=== PATIENT | female | born 1965 | race African-American/Black ===

== ENCOUNTER 2017-03-04 11:42 | Emergency (ER) | payer MEDICAID ==
[~2017-03-04] VITALS: Ht 177.8 cm; Wt 135.2 kg
[2017-03-04] MEDS ORDERED: LEVOTHYROXINE200 MCG IV (11:58)
[2017-03-04] MEDS ORDERED: LISINOPRIL20 MG ORAL (11:58)
[2017-03-04] MEDS ORDERED: HYDROCHLOROTHIA25 MG ORAL (11:58)
[2017-03-04] MEDS ORDERED: SIMVASTATIN10 MG ORAL (11:58)
[2017-03-04] MEDS ORDERED: Metoclopramide 10mg/2ml Inj IVP ONE (12:30)
[2017-03-04] MEDS ORDERED: DiphenhydrAMINE 50mg/ml Inj IVP ONE (12:30)
[2017-03-04 12:47] LABS: BASOPHILS % (AUTO) 1.1 % (0.0-2.0); LYMPHOCYTES % (AUTO) 22.2 % (20.0-45.0); MEAN CORPUSCULAR HEMOGLOBIN 34.3 PG (27.0-31.0); MEAN CORPUSCULAR HGB CONC 31.7 G/DL (32.0-36.0); MEAN CORPUSCULAR VOLUME 108 FL (80-99); MEAN PLATELET VOLUME 6.3 FL (6.5-10.1); MONOCYTES % (AUTO) 8.6 % (1.0-10.0); NEUTROPHILS % (AUTO) 65.1 % (45.0-75.0); PLATELET COUNT 387 K/UL (150-450); RED BLOOD COUNT 3.74 M/UL (4.20-5.40); RED CELL DISTRIBUTION WIDTH 13.4 % (11.6-14.8); WHITE BLOOD COUNT 7.6 K/UL (4.8-10.8)
[2017-03-04 12:49] LABS: APPEARANCE,URINE SLIGHTLY CLOUDY; KETONES,URINE NEGATIVE (NEGATIVE); LEUKOCYTE ESTERASE ,URINE 3+ (NEGATIVE); NITRITE,URINE NEGATIVE (NEGATIVE); PH,URINE 6 (4.5-8.0); PROTEIN,URINE 1+ (NEGATIVE); UROBILINOGEN,URINE NORMAL MG/DL (0.0-1.0)
[2017-03-04 12:53] LABS: INR 1.1 (0.9-1.1); PROTHROMBIN TIME 10.8 SEC (9.30-11.50)
[2017-03-04 13:07] LABS: BACTERIA,URINE OCCASIONAL /HPF; SQUAMOUS EPITHELIAL CELL,UR FEW /LPF (NONE/OCC)
[2017-03-04 13:15] VITALS: BP 122/73
[2017-03-04 13:20] LABS: ALBUMIN/GLOBULIN RATIO 1.4 (1.0-2.7); CALCIUM 9.8 mg/dL (8.6-10.2); CREATININE 1.3 mg/dL (0.5-0.9); GLOMERULAR FILTRATION RATE 52.1 mL/min (>60); POTASSIUM 4.1 mEQ/L (3.4-4.9); TOTAL PROTEIN 8.2 g/dL (6.6-8.7)
--- NOTE | 2017-03-04 14:10 | Emergency Room Report ---
History of Present Illness General Chief Complaint: Abdominal Pain Source: Patient Present Illness HPI The patient presents with several complaints. Vaginal bleeding with h/o fibroids. R ankle pain with swelling and inability to ambulate. Easy bruising. Dyspnea she feels is related to pain. The most pressing issue is the ankle pain. She's been taking ibuprofen with little help. She was diagnosed with a fibroid recently. She apparently has a referral to this problem. She still has vaginal bleeding. She is no significant pain medication for this. He feels that she's also bruising. He denies any trauma to the ankle. No fevers, chills, cough, chest pain. No nausea vomiting or diarrhea. She was drinking alcohol last few nights. Allergies: Coded Allergies: No Known Allergies (Verified Allergy, Mild, 03/23/10) Patient History Past Medical History: see triage record Social History: Reports: alcohol use, smoking Social History Narrative at home Last Menstrual Period: Post Now: No : 2 Para: 2 Reviewed Nursing Documentation: PMH: Agreed, PSxH: Agreed Nursing Documentation-PMH Past Medical History: No Stated History Hx Hypertension: Yes - high lipid Hx Neurological Problems: Yes - weakness Review of Systems All Other Systems: negative except mentioned in HPI Physical Exam Vital Signs Date Time Temp Pulse Resp B/P Pulse Ox O2 Delivery O2 Flow Rate FiO2 03/04/17 11:49 97.3 86 22 128/85 94 Room Air Sp02 EP Interpretation: reviewed, abnormal - Interpreted as low by me however the patient smokes cigarettes General Appearance: well appearing, no apparent distress, GCS 15 Head: normocephalic Eyes: bilateral eye PERRL, bilateral eye normal inspection ENT: moist mucus membranes Neck: supple Respiratory: chest non-tender, lungs clear, normal breath sounds, no rhonchi Cardiovascular #1: regular rate, rhythm Cardiovascular #2: 2+ radial (L) Gastrointestinal: soft, no mass, tenderness - Suprapubic without guarding or rebound, overweight Musculoskeletal: back normal, normal range of motion, no calf tenderness, swelling - Right ankle with effusion, no erythema or warmth., tender - ankle Neurologic: alert, oriented x3, grossly normal Psychiatric: depressed affect Skin: normal inspection, warm/dry, other - No bruises appreciated Medical Decision Making Diagnostic Impression: Primary Impression: New onset gout Additional Impressions: UTI (urinary tract infection) Qualified Codes: N30.00 - Acute cystitis without hematuria h/o fibroid ER Course The patient presents with several complaints. She has low abdominal pain with history of a fibroid and also right ankle pain as being chief complaints needing evaluation at this time. Differential includes gout, pseudogout, other electrolyte abnormalities, anemia, coagulopathy. Exam is against this being a DVT. Patient be evaluated with labs, x-rays and treated with IV hydration and analgesics. Patient is sleeping after analgesics. Labs are significant for elevated uric acid. X-rays of the abdomen are unremarkable. EKG unremarkable. Findings were discussed with the patient and all questions answered. Patient requests crutches - provided. Patient stable for outpatient observation and treatment. Laboratory Tests Test 03/04/17 12:30 White Blood Count 7.6 K/UL (4.8-10.8) Red Blood Count 3.74 M/UL (4.20-5.40) L Hemoglobin 12.8 G/DL (12.0-16.0) Hematocrit 40.4 % (37.0-47.0) Mean Corpuscular Volume 108 FL (80-99) H Mean Corpuscular Hemoglobin 34.3 PG (27.0-31.0) H Mean Corpuscular Hemoglobin Concent 31.7 G/DL (32.0-36.0) L Red Cell Distribution Width 13.4 % (11.6-14.8) Platelet Count 387 K/UL (150-450) Mean Platelet Volume 6.3 FL (6.5-10.1) L Neutrophils (%) (Auto) 65.1 % (45.0-75.0) Lymphocytes (%) (Auto) 22.2 % (20.0-45.0) Monocytes (%) (Auto) 8.6 % (1.0-10.0) Eosinophils (%) (Auto) 3.0 % (0.0-3.0) Basophils (%) (Auto) 1.1 % (0.0-2.0) Erythrocyte Sedimentation Rate 45 MM/HR (0-30) H Prothrombin Time 10.8 SEC (9.30-11.50) Prothrombin Time INR 1.1 (0.9-1.1) PTT 31 SEC (23-33) Urine Color Pale yellow Urine Appearance Slightly cloudy Urine pH 6 (4.5-8.0) Urine Specific [place] 1.015 (1.005-1.035) Urine Protein 1+ (NEGATIVE) H Urine Glucose (UA) Negative (NEGATIVE) Urine Ketones Negative (NEGATIVE) Urine Occult Blood 5+ (NEGATIVE) H Urine Nitrite Negative (NEGATIVE) Urine Bilirubin Negative (NEGATIVE) Urine Urobilinogen Normal MG/DL (0.0-1.0) Urine Leukocyte Esterase 3+ (NEGATIVE) H Urine RBC 10-15 /HPF (0 - 2) H Urine WBC 5-10 /HPF (0 - 2) H Urine Squamous Epithelial Cells Few /LPF (NONE/OCC) Urine Bacteria Occasional /HPF (NONE) Urine HCG, Qualitative Negative Sodium Level 139 mEQ/L (135-145) Potassium Level 4.1 mEQ/L (3.4-4.9) Chloride Level 97 mEQ/L (98-107) L Carbon Dioxide Level 27 mEQ/L (20-30) Anion Gap 15 (5-15) Blood Urea Nitrogen 16 mg/dL (7-23) Creatinine 1.3 mg/dL (0.5-0.9) H Estimate Glomerular Filtration Rate 52.1 mL/min (>60) Glucose Level 100 mg/dL (74-106) Uric Acid 8.4 mg/dL (3.0-7.5) H Calcium Level 9.8 mg/dL (8.6-10.2) Total Bilirubin 0.3 mg/dL (0.0-1.2) Aspartate Amino Transferase (AST) 15 U/L (5-40) Alanine Aminotransferase (ALT) 7 U/L (3-33) Alkaline Phosphatase 53 U/L (35-104) Total Protein 8.2 g/dL (6.6-8.7) Albumin 4.8 g/dL (3.5-5.2) Globulin 3.4 g/dL Albumin/Globulin Ratio 1.4 (1.0-2.7) Lipase 22 U/L (< 60) EKG Diagnostic Results Rate: normal Rhythm: NSR ST Segments: no acute changes Rhythm Strip Diag. Results EP Interpretation: yes Rhythm: NSR, no PVC's, no ectopy Other X-Ray Diagnostic Results Other X-Ray Diagnostic Results : X-Ray Ordered: abd EP Interpretation: Yes Findings: other - NSBGP, no masses, no obstruction Number of Views: 2 Last Vital Signs Date Time Temp Pulse Resp B/P Pulse Ox O2 Delivery O2 Flow Rate FiO2 03/04/17 15:54 97.3 74 17 122/85 95 Room Air 2.0 Status: improved Disposition: HOME, SELF-CARE Condition: Improved Scripts Nitrofurantoin Monohyd/M-Cryst* (MACROBID 100 MG*) 100 Mg Capsule 100 MG ORAL EVERY 12 HOURS, #14 CAP Prov: Edilson Coon M.D. 03/04/17 Tramadol Hcl* (ULTRAM*) 50 Mg Tablet 50 MG ORAL Q6H Y for For Pain, #12 TAB 0 Refills Prov: Edilson Coon M.D. 03/04/17 Indomethacin (INDOCIN) 25 Mg/5 Ml Oral.susp 25 MG PO Q8HR Y for For Pain, #20 ML Prov: Edilson Coon M.D. 03/04/17 Colchicine (Colchicine) 0.6 Mg Capsule 0.6 MG PO Q6HR Y for For Pain, #20 CAP hold if diarrhea Prov: Edilson Coon M.D. 03/04/17 Referrals: NON PHYSICIAN (PCP) Edilson Coon M.D. Mar 04, 2017 14:10
[2017-03-04] MEDS ORDERED: cefTRIAXone 1 GM in NS 55 ML IVPB ONE (14:15)
--- NOTE | 2017-03-04 14:21 | Diagnostic Imaging Report ---
Indication: Abdominal pain Technique: Supine view of the abdomen Comparison: none Findings: Unremarkable bowel gas pattern. No unusual masses or calcifications. Impression: Negative
[2017-03-04 14:44] VITALS: BP 121/87
[2017-03-04] MEDS ORDERED: NITROFURANTOIN100 M2 ORAL (15:16)
[2017-03-04] MEDS ORDERED: COLCHICINE0.6 M1 PO (15:16)
[2017-03-04] MEDS ORDERED: INDOCIN25 MG/5 ML PO (15:16)
[2017-03-04] MEDS ORDERED: TRAMADOL HCL50 MG ORAL (15:16)
[2017-03-04 15:53] VITALS: BP 122/85
[2017-03-04 15:54] VITALS: BP 122/85
--- NOTE | 2017-03-08 22:38 | Cardiology Report ---
APPROVED REPORT EKG Measurement Heart [id number] Normal sinus rhythm Nonspecific T wave abnormality Abnormal ECG
== END 2017-03-04 15:56 | disposition home or self-care (01) ==
LOC: EMR 12:20
DX: N30.00 Acute cystitis without hematuria (principal); M10.9 Gout, unspecified; F17.200 Nicotine dependence, unspecified, uncomplicated
CPT/HCPCS: 36415; 74000; 80053; 81003; 81025; 82962; 83690; 84550; 85025; 85610; 85651; 85730; 93005; 96374; 96375; 99284; J0696; J1200; J2405; J2765

== ENCOUNTER 2017-11-02 01:41 | Emergency (ER) | payer MEDICAID ==
[~2017-11-02] VITALS: Ht 177.8 cm; Wt 99.8 kg
[~2017-11-02 01:41] MED LIST: COLCHICINE0.6 M1 PO; HYDROCHLOROTHIA25 MG ORAL; INDOCIN25 MG/5 ML PO; LEVOTHYROXINE200 MCG IV; LISINOPRIL20 MG ORAL; NITROFURANTOIN100 M2 ORAL; SIMVASTATIN10 MG ORAL; TRAMADOL HCL50 MG ORAL
[2017-11-02 01:55] VITALS: BP 157/95
--- NOTE | 2017-11-02 02:08 | Emergency Room Report ---
History of Present Illness General Chief Complaint: Sore Throat Source: Patient Present Illness HPI Patient presents with complaints of right-sided facial discomfort swelling Reports that initially started on Wednesday She feels that the area has that she calmed down since then However the discomfort continues she has also sore throat and pain with swallowing Denies any chest pain shortness of breath denies any vomiting or diarrhea denies any rash Allergies: Coded Allergies: No Known Allergies (Verified Allergy, Mild, 03/23/10) Patient History Past Medical History: see triage record Pertinent Family History: none Reviewed Nursing Documentation: PMH: Agreed, PSxH: Agreed Nursing Documentation-PMH Hx Hypertension: Yes - high lipid Hx Neurological Problems: Yes - weakness Review of Systems All Other Systems: negative except mentioned in HPI Physical Exam Vital Signs Date Time Temp Pulse Resp B/P (MAP) Pulse Ox O2 Delivery O2 Flow Rate FiO2 11/02/17 01:45 97.3 79 18 157/95 97 Room Air Sp02 EP Interpretation: reviewed, normal General Appearance: well appearing, no apparent distress Head: normocephalic, atraumatic Eyes: bilateral eye PERRL, bilateral eye EOMI ENT: hearing grossly normal, TMs + canals normal, uvula midline, other - Patient has extensive dental decay on the right side lower dental region is also increased swelling and fluctuance in the gingival region, pharyngeal area itself is clear airway is patent no signs of any stridor, Neck: full range of motion, supple, no meningismus, no bony tend Respiratory: lungs clear, normal breath sounds, no rhonchi, no respiratory distress, no retraction, no accessory muscle use Cardiovascular #1: normal peripheral pulses, regular rate, rhythm, no edema, no gallop, no JVD, no murmur Gastrointestinal: normal bowel sounds, non tender, soft, no mass, no organomegaly, non-distended, no guarding, no hernia, no pulsatile mass, no rebound Genitourinary: no CVA tenderness Musculoskeletal: normal inspection Neurologic: oriented x3, responsive, public service administrator III-XII nml as tested, motor strength/ tone normal, sensory intact Psychiatric: mood/affect normal Skin: normal color, no rash, warm/dry, palpation normal Lymphatic: other - submental lymphadenopathy Medical Decision Making Diagnostic Impression: Primary Impression: Dental abscess Additional Impression: Dental decay ER Course Patient has evidence of significant dental decay and abscess formation Patient was given initial pain medication here requires antibiotics and dental followup urgently Last Vital Signs Date Time Temp Pulse Resp B/P (MAP) Pulse Ox O2 Delivery O2 Flow Rate FiO2 11/02/17 01:45 97.3 79 18 157/95 97 Room Air Status: improved Disposition: HOME, SELF-CARE Condition: Improved Scripts Ibuprofen* (MOTRIN*) 600 Mg Tablet 600 MG ORAL Q8H Y for For Pain, #20 TAB 0 Refills Prov: MAGNO OWENS D.O. 11/02/17 Acetaminophen With Codeine (T#3) (TYLENOL #3 TAB*) Y Tab 1 TAB ORAL Q8H Y for For Pain, #12 TAB Prov: MAGNO OWENS D.O. 11/02/17 Amoxicillin* (AMOXIL*) 500 Mg Capsule 500 MG ORAL THREE TIMES A DAY, #30 CAP Prov: MAGNO OWENS D.O. 11/02/17 Additional Instructions: Patient is provided with the discharge instructions notified to follow up with primary doctor in the next 2-3 days otherwise return to the er with any worsening symptoms. Please note that this report is being documented using [employer] technology. This can lead to erroneous entry secondary to incorrect interpretation by the dictating instrument. MAGNO OWENS D.O. Nov 02, 2017 02:08
[2017-11-02] MEDS ORDERED: IBUPROFEN600 MG ORAL (02:10)
[2017-11-02] MEDS ORDERED: ACETAMINOPHEN-1 EAC1 ORAL (02:10)
[2017-11-02] MEDS ORDERED: AMOXICILLIN500 MG ORAL (02:10)
[2017-11-02] MEDS ORDERED: Norco 10mg/325mg tab ORAL ONE (02:15)
[2017-11-02 02:18] VITALS: BP 157/95
== END 2017-11-02 02:17 | disposition home or self-care (01) ==
LOC: EMR 02:09
DX: K04.7 Periapical abscess without sinus (principal); K02.9 Dental caries, unspecified; I10 Essential (primary) hypertension
CPT/HCPCS: 99283

== ENCOUNTER 2019-11-09 13:12 | Emergency (ER) | payer MEDICAID ==
[~2019-11-09] VITALS: Ht 157.5 cm; Wt 113.4 kg
[~2019-11-09 13:12] MED LIST changes: +ACETAMINOPHEN-1 EAC1 ORAL; +AMOXICILLIN500 MG ORAL; +IBUPROFEN600 MG ORAL
--- NOTE | 2019-11-09 13:20 | NUR ---
ED Nurse Note: Pt ambulated to ED with the c/o of Abdominal pain on RT lower side with 10/10 pain scale. Pt is AOx4 able to verbalize her needs and able to follow commands. Pt is calm and cooperative but crying d/t pain. Pt placed on bed and gown; hooked to monitoring manager, side rails up; bed on low position. Will continue to monitor.
[2019-11-09] MEDS ORDERED: NORVASC2.5 MG ORAL (13:22)
[2019-11-09] MEDS ORDERED: ADALAT10 MG ORAL (13:22)
[2019-11-09 13:25] VITALS: BP 139/90
[2019-11-09] MEDS ORDERED: Omnipaque-300 100ml vial INJ PRN (13:30)
--- NOTE | 2019-11-09 13:30 | NUR ---
ED Nurse Note: Established IV site on RT forearm with 20G; intact and patent. Obtained blood and urine specimen, sent to labs.
--- NOTE | 2019-11-09 13:38 | Emergency Room Report ---
History of Present Illness General Chief Complaint: Abdominal Pain Source: Patient (Wilfredo Bhakta MD) Present Illness HPI Disclaimer: Please note that this report is being documented using [employer] technology. This can lead to erroneous entry secondary to incorrect interpretation by the dictating instrument. HPI: 54-year-old female with history of obesity, umbilical hernia, uterine fibroids presents for evaluation of abdominal pain. She awoke in her usual state of health however shortly after waking she noticed a pressure in the lower pelvis and suprapubic region rating down the right leg. Also complaining of pain in the periumbilical region. Pain is been constant and worsening since onset. Denies vomiting or diarrhea. Notes recent constipation. Continues to pass gas. No history of intra-abdominal surgeries. Patient has a known umbilical hernia but has not yet seen a general surgeon for elective repair. PMH: Obesity, umbilical hernia, uterine fibroids PSH: Denies Allergies: Denies Social Hx: Denies (Wilfredo Bhakta MD) Allergies: Coded Allergies: No Known Allergies (Verified Allergy, Mild, 03/23/10) Nursing Documentation-PMH Hx Hypertension: Yes - high lipid Hx Neurological Problems: Yes (Wilfredo Bhakta MD) Review of Systems All Other Systems: negative except mentioned in HPI (Wilfredo Bhakta MD) Physical Exam Vital Signs Date Time Temp Pulse Resp B/P (MAP) Pulse Ox O2 Delivery O2 Flow Rate FiO2 19 13:18 98.1 82 17 133/89 (104) 95 Room Air General: Awake and alert, appears uncomfortable and in pain HEENT: NC/AT. EOMI. Cardiovascular: RRR. S1 and S2 normal. No murmur appreciated Resp: Normal work of breathing. No cough, wheezing or crackles appreciated Abdomen: Abdomen is soft, morbidly obese. There is a palpable mass in the umbilicus that is tender to palpation without overlying skin changes. Cannot reduce. Skin: Intact. No abrasions, laceration or rash over the exposed skin MSK: Normal tone and bulk. Moving all extremities. No obvious deformity. Neuro: Awake and alert. Mentating appropriately. (Wilfredo Bhakta MD) Medical Decision Making Diagnostic Impression: Primary Impression: Ventral hernia Additional Impression: Fibroid uterus ER Course 54-year-old female presents for evaluation of abdominal pain. Differential includes but is not limited to incarcerated hernia, strangulated hernia, appendicitis, diverticulitis, enteritis, gastroenteritis, urinary tract infection, pyelonephritis, ectopic , ovarian torsion, uterine fibroids. We will start broad metabolic and infectious work-up. Patient will require emergent CT scan of the abdomen with IV contrast to assess for incarceration of the hernia. Will start IV fluids, antiemetics, pain medication. Preop labs sent. (Wilfredo Bhakta MD) ER Course Patient was endorsed to me by Dr. Bhakta. Patient was noted to be more comfortable after pain medications. Patient's hernia was reduced with direct pressure. CT imaging showed large fibroid uterus. See radiology report for full details. Patient's laboratory testing was unremarkable. Patient appears to be stable for outpatient management. Patient be given prescription for stool softeners. She is advised to follow-up with her primary care physician for surgical referral for hernia. Labs Test 11/09/19 13:45 White Blood Count 8.0 K/UL (4.8-10.8) Red Blood Count 4.52 M/UL (4.20-5.40) Hemoglobin 14.7 G/DL (12.0-16.0) Hematocrit 44.4 % (37.0-47.0) Mean Corpuscular Volume 98 FL (80-99) Mean Corpuscular Hemoglobin 32.7 PG (27.0-31.0) Mean Corpuscular Hemoglobin Concent 33.2 G/DL (32.0-36.0) Red Cell Distribution Width 12.9 % (11.6-14.8) Platelet Count 369 K/UL (150-450) Mean Platelet Volume 5.2 FL (6.5-10.1) Neutrophils (%) (Auto) 63.3 % (45.0-75.0) Lymphocytes (%) (Auto) 25.5 % (20.0-45.0) Monocytes (%) (Auto) 6.9 % (1.0-10.0) Eosinophils (%) (Auto) 2.9 % (0.0-3.0) Basophils (%) (Auto) 1.4 % (0.0-2.0) Prothrombin Time 9.8 SEC (9.30-11.50) Prothromb Time International Ratio 0.9 (0.9-1.1) Activated Partial Thromboplast Time 28 SEC (23-33) Urine Color Yellow Urine Appearance Clear Urine pH 6 (4.5-8.0) Urine Specific [place] 1.020 (1.005-1.035) Urine Protein 2+ (NEGATIVE) Urine Glucose (UA) Negative (NEGATIVE) Urine Ketones Negative (NEGATIVE) Urine Blood 3+ (NEGATIVE) Urine Nitrite Negative (NEGATIVE) Urine Bilirubin Negative (NEGATIVE) Urine Urobilinogen Normal MG/DL (0.0-1.0) Urine Leukocyte Esterase Negative (NEGATIVE) Urine RBC 2-4 /HPF (0 - 2) Urine WBC 0-2 /HPF (0 - 2) Urine Squamous Epithelial Cells Moderate /LPF (NONE/OCC) Urine Bacteria Few /HPF (NONE) Urine HCG, Qualitative Negative (NEGATIVE) Sodium Level 138 MMOL/L (136-145) Potassium Level 3.5 MMOL/L (3.5-5.1) Chloride Level 101 MMOL/L (98-107) Carbon Dioxide Level 27 MMOL/L (21-32) Anion Gap 10 mmol/L (5-15) Blood Urea Nitrogen 13 mg/dL (7-18) Creatinine 1.0 MG/DL (0.55-1.30) Estimat Glomerular Filtration Rate > 60 mL/min (>60) Glucose Level 105 MG/DL (74-106) Lactic Acid Level 1.00 mmol/L (0.4-2.0) Calcium Level 9.4 MG/DL (8.5-10.1) Total Bilirubin 0.3 MG/DL (0.2-1.0) Aspartate Amino Transf (AST/SGOT) 17 U/L (15-37) Alanine Aminotransferase (ALT/SGPT) 22 U/L (12-78) Alkaline Phosphatase 82 U/L (46-116) Total Protein 8.0 G/DL (6.4-8.2) Albumin 3.9 G/DL (3.4-5.0) Globulin 4.1 g/dL Albumin/Globulin Ratio 1.0 (1.0-2.7) Lipase 157 U/L (73-393) (Austyn Wetzel MD) Last Vital Signs Date Time Temp Pulse Resp B/P (MAP) Pulse Ox O2 Delivery O2 Flow Rate FiO2 11/09/19 13:18 98.1 82 17 133/89 (104) 95 Room Air (Wilfredo Bhakta MD) Status: improved (Austyn Wetzel MD) Disposition: HOME, SELF-CARE Condition: Stable Wilfredo Bhakta MD Nov 09, 2019 13:38 Austyn Wetzel MD Nov 09, 2019 15:45
[2019-11-09] MEDS ORDERED: Morphine Sulfate 4mg/ml Inj (IV USE ONLY) IVP ONE (13:45)
[2019-11-09 14:13] LABS: APPEARANCE,URINE CLEAR; BILIRUBIN, URINE NEGATIVE (NEGATIVE); GLUCOSE, URINE (UA) NEGATIVE (NEGATIVE); KETONES,URINE NEGATIVE (NEGATIVE); LEUKOCYTE ESTERASE ,URINE NEGATIVE (NEGATIVE); NITRITE,URINE NEGATIVE (NEGATIVE); PH,URINE 6 (4.5-8.0); PROTEIN,URINE 2+ (NEGATIVE); UROBILINOGEN,URINE NORMAL MG/DL (0.0-1.0)
[2019-11-09 14:24] LABS: BASOPHILS % (AUTO) 1.4 % (0.0-2.0); COLOR,URINE YELLOW; EOSINOPHILS % (AUTO) 2.9 % (0.0-3.0); HEMATOCRIT 44.4 % (37.0-47.0); HEMOGLOBIN 14.7 G/DL (12.0-16.0); LYMPHOCYTES % (AUTO) 25.5 % (20.0-45.0); MEAN CORPUSCULAR VOLUME 98 FL (80-99); MONOCYTES % (AUTO) 6.9 % (1.0-10.0); NEUTROPHILS % (AUTO) 63.3 % (45.0-75.0); PLATELET COUNT 369 K/UL (150-450); RED BLOOD COUNT 4.52 M/UL (4.20-5.40); RED CELL DISTRIBUTION WIDTH 12.9 % (11.6-14.8)
[2019-11-09 14:25] VITALS: BP 138/79
[2019-11-09 14:25] LABS: INR 0.9 (0.9-1.1)
[2019-11-09 14:44] LABS: ANION GAP 10 mmol/L (5-15); BLOOD UREA NITROGEN 13 mg/dL (7-18); CALCIUM 9.4 MG/DL (8.5-10.1); CARBON DIOXIDE 27 MMOL/L (21-32); CHLORIDE 101 MMOL/L (98-107); POTASSIUM 3.5 MMOL/L (3.5-5.1); SODIUM 138 MMOL/L (136-145)
[2019-11-09 14:48] LABS: ALANINE AMINOTRANSFERASE 22 U/L (12-78); ALBUMIN 3.9 G/DL (3.4-5.0); ALKALINE PHOSPHATASE 82 U/L (46-116); ASPARTATE AMINO TRANSFERASE 17 U/L (15-37); BILIRUBIN,TOTAL 0.3 MG/DL (0.2-1.0)
--- NOTE | 2019-11-09 14:54 | NUR ---
ED Nurse Note: Pt on bed lying on semi-cline's position. Pain reassessment done, pt verbalized absence of pain on abdomen. VSS; no signs of any respiratory distress. Will continue to monitor.
--- NOTE | 2019-11-09 15:10 | NUR ---
ED Nurse Note: Pt went for Abd. CT via wheelchair accompanied by loss prevention guard.
--- NOTE | 2019-11-09 15:22 | NUR ---
ED Nurse Note: Pt returned from CT; on stable condition.
--- NOTE | 2019-11-09 16:07 | Diagnostic Imaging Report ---
Clinical Indication: Abdominal pain Technique: No oral contrast utilized, per emergency room physician request IV administration nonionic contrast. Venous phase spiral acquisition obtained through the abdomen and pelvis. Multiplanar reconstructions were generated. Total dose length product 2226 mGycm. CTDIvol(s) 38 mGy. Dose reduction achieved using automated exposure control Comparison: none Findings: The uterus is globular in configuration, markedly enlarged, heterogeneous and contains calcifications. It measures 15 x 10.5 cm. No adnexal mass demonstrated. Lack of enteric contrast limits assessment of the GI tract. The appendix is normal no evidence of colonic diverticulosis or diverticulitis. No small bowel distention. There is a small periumbilical hernia. It appears to contain circumscribed fluid. It is uncertain whether the fluid is within a herniated bowel loop or is an isolated fluid pocket. Somewhat suspect the latter. If the former, there does not appear to be any associated strangulation or obstruction distal esophagus, stomach, duodenum are unremarkable. No free or loculated intraperitoneal gas or fluid is evident. The liver demonstrates a small cyst within segment 4A. The gallbladder, bile ducts, pancreas, spleen, adrenals are unremarkable. The kidneys demonstrate bilateral subcentimeter low-attenuation lesions which are too small to characterize. The included lung bases are clear. The bones demonstrate degenerative spondylosis changes Impression: Limit assessment of the GI tract, due to lack of enteric contrast administration Small periumbilical hernia. Unclear as to whether this contains a knuckle of small bowel or just isolated fluid. No definite evidence of obstruction or strangulation if the former Enlarged fibroid uterus Incidental finding left lobe liver cysts, probable bilateral renal cysts, degenerative spondylosis The CT scanner at [facility] is accredited by the [employer] and the scans are performed using protocols designed to limit radiation exposure to as low as reasonably achievable to attain images of sufficient resolution adequate for diagnostic evaluation.
[2019-11-09] MEDS ORDERED: COLACE100 MG ORAL (16:27)
[2019-11-09] MEDS ORDERED: ZOFRAN4 M1 ORAL (16:27)
[2019-11-09 16:28] VITALS: BP 141/96
[2019-11-09 16:40] VITALS: BP 141/96
--- NOTE | 2019-11-09 16:40 | NUR ---
ER DISCHARGE NOTE: Pt is cleared to be discharged per ERMD, pt is aox4, on room air, with stable vital signs. pt was given dc and prescription instructions, pt was able to verbalize understanding, pt id band and iv site removed without complications. pt is able to ambulate with steady gait. pt took all belongings.
== END 2019-11-09 16:40 | disposition home or self-care (01) ==
LOC: EMR 14:00
DX: K43.9 Ventral hernia without obstruction or gangrene (principal); D25.9 Leiomyoma of uterus, unspecified; E78.5 Hyperlipidemia, unspecified
CPT/HCPCS: 36415; 74177; 80053; 81003; 81025; 83605; 83690; 85025; 85610; 85730; 86850; 86900; 86901; 96361; 96374; 96375; J2270; J2405; J7030; Q9967; Z7502; 99284

== ENCOUNTER 2021-01-18 12:15 | Inpatient (IN) | payer MEDICAID ==
[~2021-01-18] VITALS: Ht 177.8 cm; Wt 133.8 kg
[~2021-01-18 12:15] MED LIST changes: +ADALAT10 MG ORAL; +COLACE100 MG ORAL; +NORVASC2.5 MG ORAL; +ZOFRAN4 M1 ORAL
--- NOTE | 2021-01-18 13:13 | Emergency Room Report ---
History of Present Illness General Chief Complaint: Dyspnea/Respdistress Source: Patient (Arlene Webber M.D.) Present Illness HPI Patient is a 55-year-old female current smoker who presents to the ER complaining of lower extremity swelling. Patient states that the swelling has been getting progressively worse and she called her doctor who called in a prescription for Lasix 20 mg once daily she started on Wednesday and was given 4 pills. Patient states that the swelling has improved since then but is still swollen and very painful. She also complains of shortness of breath which is worse on exertion. Patient complains of intermittent cough. She denies any chest pain. She states that she has been smoking less due to the difficulty breathing. She denies any abdominal pain nausea or vomiting. (Arlene Webber M.D.) Allergies: Coded Allergies: No Known Allergies (Verified Allergy, Mild, 03/23/10) COVID-19 Screening Contact w/high risk pt: No Experienced COVID-19 symptoms?: No COVID-19 Testing performed PROCESS IMPROVEMENT ENGINEER: No (Arlene Webber M.D.) Patient History Reviewed Nursing Documentation: PMH: Agreed; PSxH: Agreed (Arlene Webber M.D.) Nursing Documentation-PMH Hx Hypertension: Yes - high lipid Hx Neurological Problems: Yes (Arlene Webber M.D.) Review of Systems All Other Systems: negative except mentioned in HPI (rAlene Webber M.D.) Procedures Critical Care Time Critical Care Time Total critical care time: Approximately 35 minutes. Due to a high probability of clinically significant, life threatening deterioration, the patient required my highest level of preparedness to intervene emergently and I personally spent this critical care time directly and personally managing the patient. This critical care time included obtaining a history; examining the patient; pulse oximetry; ordering and review of studies; arranging urgent treatment with development of a management plan; evaluation of patient's response to treatment; frequent reassessment; and, discussions with other providers.This critical care time was performed to assess and manage the high probability of imminent, life- threatening deterioration that could result in multi-organ failure. It was exclusive of separately billable procedures and treating other patients and teaching time. Please see MDM section and the rest of the note for further information on patient assessment and treatment. (Arlene Webber M.D.) Medical Decision Making Diagnostic Impression: Primary Impression: Hypoxia Additional Impressions: CHF (congestive heart failure) Cardiomegaly COPD (chronic obstructive pulmonary disease) ER Course Patient's blood gas consistent with COPD exacerbation. Nebulizer treatments as well as IV Decadron has been ordered. Patient also given aspirin and Lasix for CHF. Patient is pending her ER work-up at this time but will be admitted to the stepdown unit. Patient signed out to oncoming physician at 1400. (Arlene Webber M.D.) ER Course Assumed care of the patient from the previous provider at approximately 1400. Please refer to initial note for full history and physical exam. Briefly, 55-year-old female history of CHF and COPD came in for lower extremity edema. No DVT identified on ultrasound. No infiltrate on chest x-ray. Labs show hypoxia and CO2 retention consistent with mixed picture of COPD and CHF exacerbation. Received medication by prior physician. Was pending admission and has now been accepted by panel physician, Dr. Naylor, for admission Laboratory Tests Test 01/18/21 13:00 01/18/21 13:37 01/18/21 13:44 Urine Color Yellow Urine Appearance Slightly cloudy Urine pH 6 (4.5-8.0) Urine Specific [place] 1.020 (1.005-1.035) Urine Protein 2+ (NEGATIVE) H Urine Glucose (UA) Negative (NEGATIVE) Urine Ketones Negative (NEGATIVE) Urine Blood 4+ (NEGATIVE) H Urine Nitrite Negative (NEGATIVE) Urine Bilirubin Negative (NEGATIVE) Urine Urobilinogen Normal MG/DL (0.0-1.0) Urine Leukocyte Esterase 1+ (NEGATIVE) H Urine RBC 2-4 /HPF (0 - 2) H Urine WBC 2-4 /HPF (0 - 2) Urine Squamous Epithelial Cells Moderate /LPF (NONE/OCC) H Urine Bacteria Few /HPF (NONE) Arterial Blood pH 7.383 (7.350-7.450) Arterial Blood Partial Pressure CO2 50.4 mmHg (35.0-45.0) H Arterial Blood Partial Pressure O2 46.8 mmHg (75.0-100.0) Arterial Blood HCO3 29.3 mmol/L (22.0-26.0) H Arterial Blood Oxygen Saturation 85.0 % (95-100) *L Arterial Blood Base Excess 3.3 (-2-2) H Lakhwinder Test Positive White Blood Count 6.7 K/UL (4.8-10.8) Red Blood Count 4.34 M/UL (4.20-5.40) Hemoglobin 14.4 G/DL (12.0-16.0) Hematocrit 46.6 % (37.0-47.0) Mean Corpuscular Volume 108 FL (80-99) H Mean Corpuscular Hemoglobin 33.2 PG (27.0-31.0) H Mean Corpuscular Hemoglobin Concent 30.9 G/DL (32.0-36.0) L Red Cell Distribution Width 15.1 % (11.6-14.8) H Platelet Count 306 K/UL (150-450) Mean Platelet Volume 6.0 FL (6.5-10.1) L Neutrophils (%) (Auto) 58.8 % (45.0-75.0) Lymphocytes (%) (Auto) 28.4 % (20.0-45.0) Monocytes (%) (Auto) 8.4 % (1.0-10.0) Eosinophils (%) (Auto) 2.9 % (0.0-3.0) Basophils (%) (Auto) 1.5 % (0.0-2.0) Sodium Level 138 MMOL/L (136-145) Potassium Level 4.3 MMOL/L (3.5-5.1) Chloride Level 99 MMOL/L (98-107) Carbon Dioxide Level 31 MMOL/L (21-32) Anion Gap 8 mmol/L (5-15) Blood Urea Nitrogen 16 mg/dL (7-18) Creatinine 1.1 MG/DL (0.55-1.30) Estimated Glomerular Filtration Rate > 60 mL/min (>60) Glucose Level 96 MG/DL (74-106) Lactic Acid Level 1.10 mmol/L (0.4-2.0) Calcium Level 9.5 MG/DL (8.5-10.1) Magnesium Level 2.5 MG/DL (1.8-2.4) H Total Bilirubin 0.4 MG/DL (0.2-1.0) Aspartate Amino Transferase (AST) 20 U/L (15-37) Alanine Aminotransferase (ALT) 11 U/L (12-78) L Alkaline Phosphatase 75 U/L (46-116) Troponin I 0.001 ng/mL (0.000-0.056) Pro-B-Type Natriuretic Peptide 439 pg/mL (0-125) H Total Protein 8.3 G/DL (6.4-8.2) H Albumin 4.6 G/DL (3.4-5.0) Globulin 3.7 g/dL Albumin/Globulin Ratio 1.2 (1.0-2.7) Microbiology Date/Time Source Procedure Growth Status 01/18/21 13:44 Nasopharynx SARS-CoV-2 Antigen (Rapid)([facility]) - Final Complete (Wilfredo Bhakta MD) EKG Diagnostic Results Troponin ordered: Yes When was troponin ordered?: Jan 18, 2021 EKG Time: 13:16 EP Interpretation: Arlene Webber MD Rate: normal - 73 bpm Rhythm: NSR ST Segments: no acute changes ASA given to the pt in ED: Yes (Arlene Webber M.D.) Rhythm Strip Diag. Results Rhythm Strip Time: 13:55 EP Interpretation: yes - Arlene Webber MD Rate: 69 bpm Rhythm: NSR, no PVC's, no ectopy (Arlene Webber M.D.) Chest X-Ray Diagnostic Results Chest X-Ray Diagnostic Results : Chest X-Ray Ordered: Yes # of Views/Limited/Complete: 1 View Indication: Shortness of Breath EP Interpretation: Yes Interpretation: no effusion, no pneumothorax, other - Cardiomegaly with increased pulmonary vasculature Impression: Other - Mild CHF Electronically Signed by: Arlene Webber MD (Arleen Webber M.D.) Disposition: ADMITTED INPATIENT Condition: Serious Signed Out To: at 1400 (Arlene Webber M.D.) Additional Instructions: Please note that this report is being documented using [employer] technology. This can lead to erroneous entry secondary to incorrect interpretation by the dictating instrument. Arlene Webber M.D. Jan 18, 2021 13:13 Wilfredo Bhakta MD Jan 18, 2021 15:02
[2021-01-18] MEDS ORDERED: Aspirin Baby 81mg ORAL ONE (13:15)
[2021-01-18] MEDS ORDERED: dexAMETHasone 10mg/ml Inj IV ONE (13:45)
--- NOTE | 2021-01-18 13:45 | NUR ---
CAME TO ER COMPLAINTS OF BILATERAL LEG PAIN.swelling on both legs with some short of breath denies any shest pain
--- NOTE | 2021-01-18 13:46 | Diagnostic Imaging Report ---
EXAM: XR Chest, 1 View CLINICAL HISTORY: SOB TECHNIQUE: Frontal view of the chest. COMPARISON: No relevant prior studies available. FINDINGS: Lungs: Mild vascular congestion. No consolidation. Pleural space: Unremarkable. No pneumothorax. Heart: Borderline cardiomegaly. Mediastinum: Unremarkable. Bones/joints: Unremarkable. IMPRESSION: Borderline cardiomegaly with mild vascular congestion. No consolidation
[2021-01-18 13:57] LABS: APPEARANCE,URINE SLIGHTLY CLOUDY; BILIRUBIN, URINE NEGATIVE (NEGATIVE); GLUCOSE, URINE (UA) NEGATIVE (NEGATIVE); KETONES,URINE NEGATIVE (NEGATIVE); LEUKOCYTE ESTERASE ,URINE 1+ (NEGATIVE); NITRITE,URINE NEGATIVE (NEGATIVE); PH,URINE 6 (4.5-8.0); PROTEIN,URINE 2+ (NEGATIVE); UROBILINOGEN,URINE NORMAL MG/DL (0.0-1.0)
[2021-01-18 14:06] LABS: ANION GAP 8 mmol/L (5-15); BASOPHILS % (AUTO) 1.5 % (0.0-2.0); BLOOD UREA NITROGEN 16 mg/dL (7-18); CALCIUM 9.5 MG/DL (8.5-10.1); CARBON DIOXIDE 31 MMOL/L (21-32); CHLORIDE 99 MMOL/L (98-107); CREATININE 1.1 MG/DL (0.55-1.30); EOSINOPHILS % (AUTO) 2.9 % (0.0-3.0); HEMATOCRIT 46.6 % (37.0-47.0); HEMOGLOBIN 14.4 G/DL (12.0-16.0); LYMPHOCYTES % (AUTO) 28.4 % (20.0-45.0); MEAN CORPUSCULAR VOLUME 108 FL (80-99); MONOCYTES % (AUTO) 8.4 % (1.0-10.0); NEUTROPHILS % (AUTO) 58.8 % (45.0-75.0); PLATELET COUNT 306 K/UL (150-450); POTASSIUM 4.3 MMOL/L (3.5-5.1); RED BLOOD COUNT 4.34 M/UL (4.20-5.40); RED CELL DISTRIBUTION WIDTH 15.1 % (11.6-14.8); SODIUM 138 MMOL/L (136-145); WHITE BLOOD COUNT 6.7 K/UL (4.8-10.8)
[2021-01-18 14:08] LABS: COLOR,URINE YELLOW
[2021-01-18 14:17] LABS: ALANINE AMINOTRANSFERASE 11 U/L (12-78); ALBUMIN 4.6 G/DL (3.4-5.0); ALBUMIN/GLOBULIN RATIO 1.2 (1.0-2.7); ALKALINE PHOSPHATASE 75 U/L (46-116); ASPARTATE AMINO TRANSFERASE 20 U/L (15-37); BILIRUBIN,TOTAL 0.4 MG/DL (0.2-1.0)
--- NOTE | 2021-01-18 14:24 | Diagnostic Imaging Report ---
EXAM: US Duplex Bilateral Lower Extremities Veins CLINICAL HISTORY: PAIN TECHNIQUE: Real-time duplex ultrasound scan of the bilateral lower extremity veins integrating B-mode two-dimensional vascular structure, Doppler spectral analysis, color flow Doppler imaging and compression. COMPARISON: No relevant prior studies available. FINDINGS: Right deep veins: Unremarkable. No DVT in the right common femoral, femoral, proximal deep femoral or popliteal veins. The veins demonstrate normal color flow, are normally compressible, with normal phasic flow and/or augmentation response. Right superficial veins: Unremarkable. No thrombus in the visualized right great saphenous vein. Left deep veins: Unremarkable. No DVT in the left common femoral, femoral, proximal deep femoral or popliteal veins. The veins demonstrate normal color flow, are normally compressible, with normal phasic flow and/or augmentation response. Left superficial veins: Unremarkable. No thrombus in the visualized left great saphenous vein. IMPRESSION: No DVT.
[2021-01-18] MEDS: Albuterol/Ipratropium 3ml neb HHN SCH ×4 (14:25→15:00)
--- NOTE | 2021-01-18 15:45 | NUR ---
SNACKS given to pt at this time, pt resting comfortably
--- NOTE | 2021-01-18 16:14 | Cardiac Electrophysiology PN ---
Subjective Subjective Seen in ER and dictated [id number] Objective Last 24 Hour Vital Signs Date Time Temp Pulse Resp B/P (MAP) Pulse Ox O2 Delivery O2 Flow Rate FiO2 01/18/21 14:06 88 22 Room Air 01/18/21 13:04 98.4 88 22 134/86 (102) 90 Room Air Laboratory Tests Test 01/18/21 13:00 01/18/21 13:37 01/18/21 13:44 Urine Color Yellow Urine Appearance Slightly cloudy Urine pH 6 (4.5-8.0) Urine Specific [place] 1.020 (1.005-1.035) Urine Protein 2+ (NEGATIVE) H Urine Glucose (UA) Negative (NEGATIVE) Urine Ketones Negative (NEGATIVE) Urine Blood 4+ (NEGATIVE) H Urine Nitrite Negative (NEGATIVE) Urine Bilirubin Negative (NEGATIVE) Urine Urobilinogen Normal MG/DL (0.0-1.0) Urine Leukocyte Esterase 1+ (NEGATIVE) H Urine RBC 2-4 /HPF (0 - 2) H Urine WBC 2-4 /HPF (0 - 2) Urine Squamous Epithelial Cells Moderate /LPF (NONE/OCC) H Urine Bacteria Few /HPF (NONE) Arterial Blood pH 7.383 (7.350-7.450) Arterial Blood Partial Pressure CO2 50.4 mmHg (35.0-45.0) H Arterial Blood Partial Pressure O2 46.8 mmHg (75.0-100.0) Arterial Blood HCO3 29.3 mmol/L (22.0-26.0) H Arterial Blood Oxygen Saturation 85.0 % (95-100) *L Arterial Blood Base Excess 3.3 (-2-2) H Lakhwinder Test Positive White Blood Count 6.7 K/UL (4.8-10.8) Red Blood Count 4.34 M/UL (4.20-5.40) Hemoglobin 14.4 G/DL (12.0-16.0) Hematocrit 46.6 % (37.0-47.0) Mean Corpuscular Volume 108 FL (80-99) H Mean Corpuscular Hemoglobin 33.2 PG (27.0-31.0) H Mean Corpuscular Hemoglobin Concent 30.9 G/DL (32.0-36.0) L Red Cell Distribution Width 15.1 % (11.6-14.8) H Platelet Count 306 K/UL (150-450) Mean Platelet Volume 6.0 FL (6.5-10.1) L Neutrophils (%) (Auto) 58.8 % (45.0-75.0) Lymphocytes (%) (Auto) 28.4 % (20.0-45.0) Monocytes (%) (Auto) 8.4 % (1.0-10.0) Eosinophils (%) (Auto) 2.9 % (0.0-3.0) Basophils (%) (Auto) 1.5 % (0.0-2.0) Sodium Level 138 MMOL/L (136-145) Potassium Level 4.3 MMOL/L (3.5-5.1) Chloride Level 99 MMOL/L (98-107) Carbon Dioxide Level 31 MMOL/L (21-32) Anion Gap 8 mmol/L (5-15) Blood Urea Nitrogen 16 mg/dL (7-18) Creatinine 1.1 MG/DL (0.55-1.30) Estimat Glomerular Filtration Rate > 60 mL/min (>60) Glucose Level 96 MG/DL (74-106) Lactic Acid Level 1.10 mmol/L (0.4-2.0) Calcium Level 9.5 MG/DL (8.5-10.1) Magnesium Level 2.5 MG/DL (1.8-2.4) H Total Bilirubin 0.4 MG/DL (0.2-1.0) Aspartate Amino Transf (AST/SGOT) 20 U/L (15-37) Alanine Aminotransferase (ALT/SGPT) 11 U/L (12-78) L Alkaline Phosphatase 75 U/L (46-116) Troponin I 0.001 ng/mL (0.000-0.056) Pro-B-Type Natriuretic Peptide 439 pg/mL (0-125) H Total Protein 8.3 G/DL (6.4-8.2) H Albumin 4.6 G/DL (3.4-5.0) Globulin 3.7 g/dL Albumin/Globulin Ratio 1.2 (1.0-2.7) Microbiology Date/Time Source Procedure Growth Status 01/18/21 13:44 Nasopharynx SARS-CoV-2 Antigen (Rapid)([facility]KA) - Final Complete Raffy Garrido MD Jan 18, 2021 16:14
[2021-01-18 17:29] VITALS: BP 123/71
--- NOTE | 2021-01-18 17:36 | NUR ---
pt updated on admission at this time
--- NOTE | 2021-01-18 17:44 | Consultation ---
DATE OF CONSULTATION: 01/18/2021 CARDIOLOGY CONSULTATION CONSULTING PHYSICIAN: Raffy Garrido MD REFERRING PHYSICIAN: Ragini Naylor MD REASON FOR CONSULTATION: Management of congestive heart failure, lower extremity edema, shortness of breath. HISTORY OF PRESENT ILLNESS: The patient is a 55-year-old lady with history of hypertension, who is also current smoker, presented to emergency room for increasing lower extremity edema as well as worsening of shortness of breath. The patient called her doctor who was at the [facility] and he prescribed the patient Lasix daily and started on Wednesday and . The swelling has been improved. It is also very painful. The patient came to the emergency room and is being admitted for congestive heart failure exacerbation. REVIEW OF SYSTEMS: Negative other than what was mentioned in the history of present illness. PAST MEDICAL HISTORY: As mentioned above. FAMILY HISTORY: Noncontributory. SOCIAL HISTORY: She lives at home. Continues to smoke. Does not drink alcohol or use drugs. PHYSICAL EXAMINATION: VITAL SIGNS: Show blood pressure of 134/86, pulse of 88, respirations , and temperature 98.4. HEAD AND NECK: Shows positive JVD. LUNGS: Decreased breath sounds. CARDIOVASCULAR: Shows regular S1 and S2 with no gallop. ABDOMEN: Soft. EXTREMITIES: A 1+ to 2+ pitting edema. LABORATORY AND DIAGNOSTIC DATA: Labs show white count of 6.7, hemoglobin 14.5, hematocrit 46.6, and platelet count is 306. Sodium 138, potassium 4.3, BUN of 16, creatinine 1.1, glucose of 96. First troponin is negative. Her EKG shows sinus rhythm with nonspecific ST-T wave abnormality. ASSESSMENT AND PLAN: 1. Bilateral lower extremity edema and shortness of breath. BNP is also elevated at 439. Lower extremity duplex showed no evidence of DVT. We will get an echocardiogram to evaluate for ejection fraction and wall motion abnormality and start the patient on Lasix 40 mg IV b.i.d. 2. History of hypertension. Continue Lasix. The patient also states that she was also on amlodipine that was discontinued in view of extremity edema. I will start the patient on lisinopril and carvedilol. 3. History of COPD. Thank you very much for allowing me to participate in the care of this patient. Please do not hesitate to contact me for any questions regarding my evaluation. Raffy Garrido M.D. DR: [place] JOB#: [id number] CC:
--- NOTE | 2021-01-18 21:00 | NUR ---
Pte was admited to the floor room number [id number] report given to gurpreet LINCOLN . all belons were attached and transfer to the patient . Pte left the ER in [id number] condition.
[2021-01-18 21:30] VITALS: BP 135/79
--- NOTE | 2021-01-18 21:30 | NUR ---
NURSE NOTES: Got report from Abhijit LINCOLN. Pt arrived via gurney from ED. Initial assessment done. Pt is from home here for CHF/COPD. Complains of bilateral leg edema. Denies any pain. Denies any n/v or SOB. Pt is ambulatory w/ steady gait. Pt is fully oriented. Pt on 2L NC sating 95%. Pt running Sinus Rhythm on the monitor. Pt is negative covid19 per rapid swab in ED. No skin issues noted. Pt is continent. Pt has R arm 20g saline locked patent and intact. VSS. Bed in low and locked position, call light within reach, bedside table within reach. Continue to monitor. Orders given and placed by Dr. Naylor.
[2021-01-18] MEDS: Lisinopril 10mg tab ORAL SCH (22:09)
[2021-01-18] MEDS: Carvedilol 12.5mg tab ORAL SCH (22:09)
[2021-01-18] MEDS ORDERED: Acetaminophen 500mg (ES) tab ORAL PRN (22:30)
[2021-01-19] VITALS (7 sets, daily range): BP systolic 90–116; BP diastolic 60–78
[2021-01-19 05:48] LABS: BASOPHILS % (AUTO) 0.6 % (0.0-2.0); HEMATOCRIT 46.2 % (37.0-47.0); HEMOGLOBIN 14.2 G/DL (12.0-16.0); LYMPHOCYTES % (AUTO) 14.9 % (20.0-45.0); MEAN CORPUSCULAR VOLUME 108 FL (80-99); MONOCYTES % (AUTO) 4.2 % (1.0-10.0); NEUTROPHILS % (AUTO) 80.2 % (45.0-75.0); PLATELET COUNT 339 K/UL (150-450); RED BLOOD COUNT 4.29 M/UL (4.20-5.40); RED CELL DISTRIBUTION WIDTH 14.9 % (11.6-14.8); WHITE BLOOD COUNT 6.5 K/UL (4.8-10.8)
[2021-01-19 06:52] LABS: ALBUMIN 4.4 G/DL (3.4-5.0); ALBUMIN/GLOBULIN RATIO 1.1 (1.0-2.7); BILIRUBIN,TOTAL 0.3 MG/DL (0.2-1.0); CALCIUM 9.4 MG/DL (8.5-10.1); CREATININE 1.4 MG/DL (0.55-1.30)
--- NOTE | 2021-01-19 07:00 | NUR ---
NURSE NOTES: Pt bradycardia when she sleeps 40-50s. Went as low as 38. When awake pt Normal Sinus Rhythm. Dr. Garrido notified.
--- NOTE | 2021-01-19 07:10 | NUR ---
NURSE HAND-OFF REPORT: Important Events on Shift:[] Patient Status: [STABLE] Diet: [NPO] Pending Orders: [] Pending Results/Labs:[] Pending MD notification:[] Latest Vital Signs: Temperature 97.7 , Pulse 87 , B/P 100 /65 , Respiratory Rate 18 , O2 SAT 99 , Room Air, O2 Flow Rate 2.0 . Vital Sign Comment: [] EKG Rhythm: Sinus Rhythm Rhythm change?: N MD Notified?: - MD Response: Latest Back Fall Score: 20 Fall Risk: Low Risk Safety Measures: Call light , Bed Alarm , Side Rails Side Rails x2, Bed position . Fall Precautions: Report given to [YAAKOV LINCOLN].
--- NOTE | 2021-01-19 07:57 | NUR ---
NURSE NOTES: Received report from LATONIA Iraheta. Patient in bed resting no active s/s cardiac, respiratory distress noticed at this time. Patient AOx4, SR with HR 87, on 2L oxygen via NC, O2 sat 95% at this time. Endorsed NPO at this time. Bilateral lower extremities dependent edema, tender to touch, DVT negative. IV on right FA 20G, asymptomatic, patent, intact. Bed in lowest position, side rail upx3, call light within reach, bed alarm on, Will continue to monitor.
[2021-01-19] MEDS: cefTRIAXone 1 GM in D5W 55 ML IVPB SCH (08:59)
[2021-01-19] MEDS: Carvedilol 12.5mg tab ORAL SCH ×2 (09:00→20:27)
[2021-01-19] MEDS: Lisinopril 10mg tab ORAL SCH ×2 (09:00→20:28)
--- NOTE | 2021-01-19 10:52 | NUR ---
NURSE NOTES: MIKALA Kimbrough, order DuoNeb PRN [id number], order noted, entered, carried out.
[2021-01-19] MEDS ORDERED: Albuterol/Ipratropium 3ml neb HHN PRN (11:00)
--- NOTE | 2021-01-19 12:30 | Consultation ---
Consult Note Consult Note DATE OF CONSULTATION: 01/19/2021 CONSULTING PHYSICIAN: Darinel Blanchard MD. ATTENDING PHYSICIAN: Dr. Naylor REASON FOR CONSULTATION: COPD exacerbation, orthopnea, respiratory distress HISTORY OF PRESENT ILLNESS: This is 55-year-old female with past medical history of hypertension and hyperlipidemia, who presented to the ED for evaluation of progressively worsening lower extremity swelling x1 week. Patient was seen by her doctor who prescribed her Lasix 20 mg once daily which she started on Wednesday but was only given 4 pills total. She reports mild improvement of her lower extremity swelling but presented to the ED given nonresolved pain in the legs. Patient is also reporting 2 pillow orthopnea for 1 week. She reports smoking for the past 30 years. Patient denies past medical history of COPD. Patient denies using home oxygen or inhaler. Denies history of asthma. The initial blood gas was consistent with COPD exacerbation. She received nebulizer treatment as well as IV Decadron in ER. She was started on aspirin and Lasix for CHF. There was no DVT identified on ultrasound of legs. Chest x- ray was clear from infiltrates. Patient was then admitted to the hospital for further management. Patient tested negative for COVID-19 in ER. PAST MEDICAL HISTORY: Hypertension and hyperlipidemia MEDICATIONS: Amlodipine, docusate, levothyroxine, lisinopril, nifedipine, ondansetron, simvastatin ALLERGIES: No known allergy FAMILY HISTORY: Noncontributory PERSONAL/SOCIAL HISTORY: Patient is from home, current smoker x30 years (4 cigarettes a day, used to smoke 1 pack every 3 days in the past, ) REVIEW OF SYSTEMS: Negative except mentioned in HPI PHYSICAL EXAMINATION: VITAL SIGNS: Blood pressure 116/60, heart rate 54, respiratory rate 18, weight 133 kg, height 177 cm. General: Patient laying in bed with head of bed elevated, NAD, normal work of breathing on 2 L nasal cannula HEENT: Head exam reveals that the head is normocephalic, atraumatic without deformity or unusual swelling. Pupils are PERRLA. CHEST AND LUNGS: Decreased breath sounds CARDIOVASCULAR: Positive JVD reveals normal S1, S2 without murmurs, rubs, or clicks. ABDOMEN: Soft with no tenderness or organomegaly. RECTAL: Deferred. MUSCULOSKELETAL: There is no tenderness to palpation. Range of motion is normal. NEUROLOGICAL: Alert and oriented x3 , nonfocal Extremities: 1+ to 2+ pitting edema bilateral lower extremities LABORATORY DATA: Laboratory testing shows MCV 108, MCH 33.2. Chemistries show BUN 24, creatinine 1.4, BUN 634 Assessment/Plan 1. CHF exacerbation with elevated BNP -Cardio following -Evaluation with echocardiogram - on Lasix, lisinopril, Coreg 2. undiagnosed COPD exacerbation -Patient reports extensive history of smoking, over 30 years -Patient education provided on smoking cessation -Patient denies use of home oxygen -We will continue breathing treatment - Continue supplemental oxygen 3. Respiratory distress, likely secondary to #1 and #2 4. bilateral lower extremity edema -Negative for DVT on V/D US -SCD and ambulation for DVT prophylaxis -Continue Lasix 5. Hypothyroidism -On levothyroxine 6. Pulmonary congestion - on Lasix - supplemental oxygen as needed The care for this patient was discussed with my supervising physician. Time spent for this case was approximately 31 minutes. Geoff Scott Jan 19, 2021 12:30
--- NOTE | 2021-01-19 12:53 | Consultation ---
Consult Note Consult Note I am asked to evaluate the patient at the request of Dr. Adkins for rising serum creatinine Patient admitted yesterday through emergency room Patient emergency room note: Chief Complaint: Dyspnea/Respdistress Source: Patient Patient is a 55-year-old female current smoker who presents to the ER complaining of lower extremity swelling. Patient states that the swelling has been getting progressively worse and she called her doctor who called in a prescription for Lasix 20 mg once daily she started on Wednesday and was given 4 pills. Patient states that the swelling has improved since then but is still swollen and very painful. She also complains of shortness of breath which is worse on exertion. Coded Allergies: No Known Allergies (Verified Allergy, Mild, 03/23/10) COVID-19 Screening Contact w/high risk pt: No Experienced COVID-19 symptoms?: No COVID-19 Testing performed EXCELLENCE CONSULTANT: No Hx Hypertension: Yes - high lipid Hx Neurological Problems: Yes PHYSICAL EXAMINATION: VITAL SIGNS: Temperature 97.5, pulse 65, blood pressure 113/74. GENERAL APPEARANCE: Obese. No acute distress. HEAD AND NECK: [place] conjunctiva. HEART: Normal rate. LUNGS: Few rhonchi bilaterally. ABDOMEN: Obese and soft. EXTREMITIES: Some edema of legs. NEUROLOGIC: Awake, alert, oriented x3. LABORATORY AND DIAGNOSTIC DATA: WBC 9, hemoglobin 12.7, hematocrit 40.2, platelets is 300. ABG at the time of admission showed pCO2 of 50.4, , O2 saturation 85%. Blood cultures x2 are negative. COVID test is negative. Echocardiogram showed ejection fraction of 60 to 65%, but have severe diastolic congestive heart failure. Venous duplex was negative for DVT. Chest x-ray showed cardiomegaly and congestion, no consolidation. . Assessment/Plan Renal failure: Rising serum creatinine multifactorial. Mainly treatment for CHF with lisinopril and Lasix Congestive heart failure History of hypertension History of COPD Obesity, BMI 42.3 Elevated TSH: Hypothyroidism Continue to optimize pulmonary and cardiac status Monitor renal parameters electrolytes Start Synthroid Stool softener and gastric support Per orders Adilson Yang MD Jan 19, 2021 12:52
[2021-01-19] MEDS: Docusate 100mg cap ORAL SCH ×2 (13:08→17:02)
--- NOTE | 2021-01-19 14:04 | Cardiac Electrophysiology PN ---
Assessment/Plan Assessment/Plan 1. Bilateral lower extremity edema and shortness of breath. BNP is also elevated at 439. Lower extremity duplex showed no evidence of DVT. ECho showed Nl ejection fraction 65%. Continue Lasix 40 mg IV b.i.d. 2. History of hypertension. Continue Lasix 40 iv bid, lisinopril 10 and carvedilol 12.5 po bid 3. History of COPD. Subjective Subjective Diuresing and feeling better on iv Lasix ECho EF 65% Objective Last 24 Hour Vital Signs Date Time Temp Pulse Resp B/P (MAP) Pulse Ox O2 Delivery O2 Flow Rate FiO2 01/19/21 12:00 Nasal Cannula 1.0 01/19/21 12:00 96.9 64 18 103/69 (80) 95 01/19/21 12:00 68 01/19/21 12:00 1.0 01/19/21 09:22 54 01/19/21 09:00 54 116/60 01/19/21 09:00 116/60 01/19/21 08:00 57 01/19/21 08:00 96.4 60 18 116/60 (78) 95 01/19/21 08:00 2.0 01/19/21 08:00 Nasal Cannula 2.0 01/19/21 04:00 87 01/19/21 03:44 Nasal Cannula 2.0 01/19/21 03:40 2.0 01/19/21 03:30 97.7 70 18 100/65 (77) 99 01/19/21 00:00 Nasal Cannula 2.0 01/19/21 00:00 77 01/19/21 00:00 98.2 80 18 100/60 (73) 99 01/19/21 00:00 2.0 01/18/21 22:09 80 135/79 01/18/21 22:09 135/79 01/18/21 21:30 98.2 80 18 135/79 (97) 95 01/18/21 21:13 98.3 73 17 Room Air 01/18/21 21:04 Room Air 01/18/21 17:29 98.0 85 18 123/71 100 Room Air 01/18/21 14:06 88 22 Room Air Intake and Output 01/18/21 01/19/21 19:00 07:00 Output Total 400 ml Balance -400 ml Output Urine Total 400 ml # Voids 3 Laboratory Tests Test 01/18/21 18:40 01/19/21 05:30 Prothrombin Time 10.8 SEC (9.30-11.50) Prothromb Time International Ratio 1.0 (0.9-1.1) Activated Partial Thromboplast Time 28 SEC (23-33) D-Dimer 0.21 mg/L FEU (0.00-0.49) White Blood Count 6.5 K/UL (4.8-10.8) Red Blood Count 4.29 M/UL (4.20-5.40) Hemoglobin 14.2 G/DL (12.0-16.0) Hematocrit 46.2 % (37.0-47.0) Mean Corpuscular Volume 108 FL (80-99) H Mean Corpuscular Hemoglobin 33.2 PG (27.0-31.0) H Mean Corpuscular Hemoglobin Concent 30.8 G/DL (32.0-36.0) L Red Cell Distribution Width 14.9 % (11.6-14.8) H Platelet Count 339 K/UL (150-450) Mean Platelet Volume 6.1 FL (6.5-10.1) L Neutrophils (%) (Auto) 80.2 % (45.0-75.0) H Lymphocytes (%) (Auto) 14.9 % (20.0-45.0) L Monocytes (%) (Auto) 4.2 % (1.0-10.0) Eosinophils (%) (Auto) 0.0 % (0.0-3.0) Basophils (%) (Auto) 0.6 % (0.0-2.0) Sodium Level 141 MMOL/L (136-145) Potassium Level 4.0 MMOL/L (3.5-5.1) Chloride Level 101 MMOL/L (98-107) Carbon Dioxide Level 33 MMOL/L (21-32) H Anion Gap 7 mmol/L (5-15) Blood Urea Nitrogen 24 mg/dL (7-18) H Creatinine 1.4 MG/DL (0.55-1.30) H Estimat Glomerular Filtration Rate 47.1 mL/min (>60) Glucose Level 128 MG/DL (74-106) H Calcium Level 9.4 MG/DL (8.5-10.1) Total Bilirubin 0.3 MG/DL (0.2-1.0) Aspartate Amino Transf (AST/SGOT) 15 U/L (15-37) Alanine Aminotransferase (ALT/SGPT) 17 U/L (12-78) Alkaline Phosphatase 70 U/L (46-116) Troponin I 0.000 ng/mL (0.000-0.056) Pro-B-Type Natriuretic Peptide 634 pg/mL (0-125) H Total Protein 8.3 G/DL (6.4-8.2) H Albumin 4.4 G/DL (3.4-5.0) Globulin 3.9 g/dL Albumin/Globulin Ratio 1.1 (1.0-2.7) Thyroid Stimulating Hormone (TSH) 10.317 uiU/mL (0.358-3.740) Free Thyroxine 0.54 NG/DL (0.76-1.46) L Microbiology Date/Time Source Procedure Growth Status 01/18/21 13:44 Nasopharynx SARS-CoV-2 Antigen (Rapid)(MIKA) - Final Complete Objective HEAD AND NECK: Shows positive JVD. LUNGS: Decreased breath sounds. CARDIOVASCULAR: Shows regular S1 and S2 with no gallop. ABDOMEN: Soft. EXTREMITIES: 2+ pitting edema. Raffy Garrido MD Jan 19, 2021 14:04
--- NOTE | 2021-01-19 19:15 | NUR ---
NURSE NOTES: Received pt from LATONIA Rizvi. Pt A/Ox4 Denies pain or discomfort. Respirations even and unlabored. On 1L/NC saturating 98%. Showing sinus Rhythm on radiographer cardiac catheterization. Ambulating steadily to bathroom to void. Rt forearm #20g saline locked patent and intact. Bed in low position and locked. Call light and bedside table within reach. In no apparent distress.
--- NOTE | 2021-01-19 19:18 | NUR ---
NURSE HAND-OFF REPORT: Important Events on Shift: NA Patient Status: stable Diet: Cardiac Pending Orders: NA Pending Results/Labs:na Pending MD notification:na Latest Vital Signs: Temperature 96.9 , Pulse 62 , B/P 109 /78 , Respiratory Rate 18 , O2 SAT 95 , Room Air, O2 Flow Rate 1.0 . Vital Sign Comment: stable EKG Rhythm: Sinus Rhythm Rhythm change?: N MD Notified?: - MD Response: Latest Back Fall Score: 20 Fall Risk: Low Risk Safety Measures: Call light Within Reach, Bed Alarm Zone 2, Side Rails Side Rails x2, Bed position Low and Locked. Fall Precautions: Patient Fall Education Report given to LATONIA Vallejo.
--- NOTE | 2021-01-19 22:44 | History and Physical Report ---
DATE OF ADMISSION: 01/18/2021 HISTORY OF PRESENT ILLNESS: Patient is being admitted for CHF exacerbation as well as COPD exacerbation. Patient got steroids in the ER as well as breathing treatment. Patient has also been started on Lasix for the PND recently. Patient complains of worsening lower extremity edema, could not walk. Also complains of shortness of breath for a week and also has a 3-pillow orthopnea. Patient has been coughing or wheezing. She is admitted for CHF as well as COPD exacerbation. Patient denies nausea, vomiting, or diarrhea. Denies fever or chills. Denies headache. Denies chest pain. PAST MEDICAL HISTORY: Hypertension, constipation, hypothyroidism, hyperlipidemia, hernia. PAST SURGICAL HISTORY: Neck surgery, hernia surgery. ALLERGIES: No known allergies. MEDICATIONS: Levoxyl, docusate, amlodipine, lisinopril, simvastatin. FAMILY HISTORY: Noncontributory. REVIEW OF SYSTEMS: HEENT: Reports headaches. RESPIRATORY: Reports shortness of breath. Denies cough. CARDIOVASCULAR: Denies chest pain. Does have 3-pillow orthopnea. GASTROINTESTINAL: Denies nausea, vomiting, or diarrhea. Does have occasional heartburn. EXTREMITIES: Denies pain in lower extremities. Reports worsening leg edema. CENTRAL NERVOUS SYSTEM: Denies change in speech pattern. Has generalized weakness. PHYSICAL EXAMINATION: VITAL SIGNS: Temperature is 96.9, pulse is 64, blood pressure 109/78. HEENT: PERRLA. NECK: Supple. CHEST: Bibasilar rhonchi. CARDIOVASCULAR: Regular rate and rhythm. No murmurs or extra sounds. GASTROINTESTINAL: Soft, nontender, nondistended. No organomegaly. EXTREMITIES: 2+ edema. Has generalized weakness. Reflexes equal in both sides. Has 2+ pitting edema in the lower extremities. LABORATORY DATA: WBC of 6.7, hemoglobin 14.4, platelets of 306. Sodium 138, potassium 4.3, BUN of 16, creatinine 1.1. Troponin is negative. ASSESSMENT AND PLAN: CHF exacerbation, COPD exacerbation, respiratory insufficiency, worsening leg edema. I have basically consulted Dr. Garrido, Dr. Darinel Blanchard, Dr. Amilcar Rodriguez for the CHF and COPD exacerbation as well as to rule out any COPD versus pneumonia versus chronic bronchitis. Antibiotics if any per Dr. Amilcar Rodriguez. Ali Deejay Naylor DR: ROSSI JOB#: [id number] CC:
--- NOTE | 2021-01-19 23:00 | NUR ---
NURSE NOTES: Sleeping. Easily awakened to slight noise. In no apparent distress. B/p meds and lasix held d/t low B/P of 96/60, HR of 64
--- NOTE | 2021-01-20 03:00 | NUR ---
NURSE NOTES: Sleeping well.. Easily awakened. Respirations even and unlabored. In no apparent distress. SR on rn cardiac. No episodes of bradycardia.
[2021-01-20 04:00] VITALS: BP 85/57
--- NOTE | 2021-01-20 04:45 | NUR ---
NURSE NOTES: Dr. Norris called regarding low B/P. Pt is asymptomatic. MD order carried out.
[2021-01-20 05:24] LABS: BASOPHILS % (AUTO) 1.2 % (0.0-2.0); EOSINOPHILS % (AUTO) 1.6 % (0.0-3.0); HEMATOCRIT 40.2 % (37.0-47.0); HEMOGLOBIN 12.7 G/DL (12.0-16.0); LYMPHOCYTES % (AUTO) 33.6 % (20.0-45.0); MEAN CORPUSCULAR VOLUME 107 FL (80-99); MONOCYTES % (AUTO) 5.4 % (1.0-10.0); NEUTROPHILS % (AUTO) 58.3 % (45.0-75.0); PLATELET COUNT 300 K/UL (150-450); RED BLOOD COUNT 3.76 M/UL (4.20-5.40); RED CELL DISTRIBUTION WIDTH 15.2 % (11.6-14.8)
[2021-01-20 06:10] LABS: ALANINE AMINOTRANSFERASE 13 U/L (12-78); ALBUMIN/GLOBULIN RATIO 1.2 (1.0-2.7); ALKALINE PHOSPHATASE 57 U/L (46-116); ANION GAP 8 mmol/L (5-15); ASPARTATE AMINO TRANSFERASE 18 U/L (15-37); BILIRUBIN,TOTAL 0.3 MG/DL (0.2-1.0); BLOOD UREA NITROGEN 32 mg/dL (7-18); CALCIUM 9.4 MG/DL (8.5-10.1); CARBON DIOXIDE 32 MMOL/L (21-32); CHLORIDE 101 MMOL/L (98-107); CHOLESTEROL 234 MG/DL (< 200); CREATININE 1.4 MG/DL (0.55-1.30); FERRITIN 32 NG/ML (8-388); GAMMA GLUTAMYL TRANSPEPTIDASE 24 U/L (5-85); HDL CHOLESTEROL 81 MG/DL (40-60); PHOSPHORUS 4.8 MG/DL (2.5-4.9); POTASSIUM 3.6 MMOL/L (3.5-5.1); SODIUM 140 MMOL/L (136-145); TRIGLYCERIDES 126 MG/DL (30-150)
[2021-01-20 06:33] LABS: % IRON SATURATION 18 % (15-50); IRON 64 ug/dL (50-175); TOTAL IRON BINDING CAPACITY 348 ug/dL (250-450)
[2021-01-20 08:00] VITALS: BP 113/74
--- NOTE | 2021-01-20 08:00 | NUR ---
RECEIVED PT. SLEEPY BUT AROUSABLE SKIN WARM AND DRY TO TOUCH ,BP113/74 ON O2 1L ,HAVING SOB WITH EXERTION
[2021-01-20] MEDS: cefTRIAXone 1 GM in D5W 55 ML IVPB SCH (08:46)
[2021-01-20] MEDS: Docusate 100mg cap ORAL SCH ×3 (08:46→17:43)
[2021-01-20] MEDS: Carvedilol 12.5mg tab ORAL SCH ×2 (08:47→20:38)
[2021-01-20] MEDS: Lisinopril 10mg tab ORAL SCH ×2 (09:00→20:38)
--- NOTE | 2021-01-20 09:24 | Pulmonology Progress Note ---
Subjective ROS Limited/Unobtainable: No Interval Events: hypotension -> s/p bolus NS Constitutional: Reports: no symptoms HEENT: Repors: no symptoms Respiratory: Reports: shortness of breath Cardiovascular: Reports: no symptoms Gastrointestinal/Abdominal: Reports: no symptoms Allergies: Coded Allergies: No Known Allergies (Verified Allergy, Mild, 03/23/10) Objective Last 24 Hour Vital Signs Date Time Temp Pulse Resp B/P (MAP) Pulse Ox O2 Delivery O2 Flow Rate FiO2 01/20/21 08:47 65 113/74 01/20/21 08:05 99 Nasal Cannula 2.0 28 01/20/21 04:00 97.2 55 20 85/57 (66) 96 01/20/21 03:40 Nasal Cannula 1.0 01/20/21 03:40 1.0 01/20/21 03:40 48 01/19/21 23:48 60 01/19/21 23:40 97.6 60 20 90/60 (70) 97 01/19/21 23:40 Nasal Cannula 1.0 01/19/21 23:40 1.0 01/19/21 20:28 96/60 01/19/21 20:27 62 96/60 01/19/21 20:15 Nasal Cannula 1.0 01/19/21 20:00 62 01/19/21 20:00 98.5 64 20 96/60 (72) 100 01/19/21 20:00 1.0 01/19/21 19:49 96 Nasal Cannula 2.0 28 01/19/21 16:00 Nasal Cannula 1.0 01/19/21 16:00 96.9 62 18 109/78 (88) 95 01/19/21 16:00 64 01/19/21 16:00 1.0 01/19/21 12:00 Nasal Cannula 1.0 01/19/21 12:00 96.9 64 18 103/69 (80) 95 01/19/21 12:00 68 01/19/21 12:00 1.0 01/19/21 09:22 54 Intake and Output 01/19/21 01/20/21 19:00 07:00 Intake Total 355 ml 240 ml Balance 355 ml 240 ml Intake Oral 300 ml 240 ml IV Total 55 ml # Voids 2 1 General Appearance: no acute distress HEENT: atraumatic Respiratory: decreased breath sounds Cardiovascular: normal rate, regular rhythm Abdomen: soft, non tender Musculoskeletal: other - LE edema Microbiology Date/Time Source Procedure Growth Status 01/18/21 18:40 Blood Blood Culture - Preliminary NO GROWTH AFTER 24 HOURS Resulted 01/18/21 13:46 Blood Blood Culture - Preliminary NO GROWTH AFTER 24 HOURS Resulted 01/18/21 13:44 Nasopharynx SARS-CoV-2 Antigen (Rapid)(MIKA) - Final Complete Laboratory Tests 01/20/21 04:58: White Blood Count 9.0, Red Blood Count 3.76L, Hemoglobin 12.7, Hematocrit 40.2, Mean Corpuscular Volume 107H, Mean Corpuscular Hemoglobin 33.7H, Mean Corpuscular Hemoglobin Concent 31.6L, Red Cell Distribution Width 15.2H, Platelet Count 300, Mean Platelet Volume 6.2L, Neutrophils (%) (Auto) 58.3, L ymphocytes (%) (Auto) 33.6, Monocytes (%) (Auto) 5.4, Eosinophils (%) (Auto) 1.6, Basophils (%) (Auto) 1.2, Sodium Level 140, Potassium Level 3.6, Chloride Level 101, Carbon Dioxide Level 32, Anion Gap 8, Blood Urea Nitrogen 32H, Creatinine 1.4H, Estimat Glomerular Filtration Rate 47.1, Glucose Level 99, Hemoglobin A1c 6.5H, Uric Acid 8.1H, Calcium Level 9.4, Phosphorus Level 4.8, Magnesium Level 2.6H, Iron Level 64, Total Iron Binding Capacity 348, Percent Iron Saturation 18, Unsaturated Iron Binding 284, Ferritin 32, Total Bilirubin 0.3, Gamma Glutamyl Transpeptidase 24, Aspartate Amino Transf (AST/SGOT) 18, Alanine Aminotransferase (ALT/SGPT) 13, Alkaline Phosphatase 57, C-Reactive Protein, Quantitative < 0.4, Pro-B-Type Natriuretic Peptide 1105H, Total Protein 7.3, Albumin 4.0, Globulin 3.3, Albumin/Globulin Ratio 1.2, Triglycerides Level 126, Cholesterol Level 234H, LDL Cholesterol 127H, HDL Cholesterol 81H, Cholesterol/HDL Ratio 2.9L, Vitamin B12 Level 430, Vitamin D 25-Hydroxy [Pending], 25-Hydroxy Vitamin D2 [Pending], 25-Hydroxy Vitamin D3 [Pending], Folate 9.3, Free Thyroxine 0.48L, Free Triiodothyronine 0.9L Current Medications Medications (Trade) Dose Ordered Sig/Della Route PRN Reason Start Time Stop Time Status Last Admin Dose Admin Acetaminophen (Tylenol) 500 mg Q6H PRN ORAL Mild Pain (Pain Scale 1-3) 01/18/21 22:30 02/17/21 22:29 Albuterol/ Ipratropium (Albuterol/ Ipratropium) 3 ml Q6HRT PRN HHN Shortness of breath 01/19/21 11:00 01/24/21 10:59 Carvedilol (Coreg) 12.5 mg EVERY 12 HOURS ORAL 01/18/21 21:00 02/17/21 20:59 01/20/21 08:47 Ceftriaxone Sodium 1 gm/ Dextrose 55 ml @ 110 mls/hr Q24H IVPB 01/19/21 08:00 01/26/21 07:59 01/20/21 08:46 Clonidine HCl (Catapres Tab) 0.1 mg Q4H PRN ORAL sbp>170 01/18/21 16:15 04/18/21 16:14 Docusate Sodium (Colace) 100 mg THREE TIMES A DAY ORAL 01/19/21 13:00 02/18/21 12:59 01/20/21 08:46 Furosemide (Lasix) 40 mg EVERY 12 HOURS IV 01/18/21 21:00 02/17/21 20:59 01/20/21 08:48 Levothyroxine Sodium (Synthroid) 50 mcg DAILY@0630 ORAL 01/20/21 06:30 02/19/21 06:29 01/20/21 05:46 Lisinopril (ZestriL) 10 mg EVERY 12 HOURS ORAL 01/18/21 21:00 02/17/21 20:59 01/18/21 22:09 Pantoprazole (Protonix) 40 mg EVERY 12 HOURS ORAL 01/19/21 21:00 02/18/21 20:59 01/20/21 08:48 Assessment/Plan Assessment/Plan 1. CHF exacerbation with elevated BNP -Cardio following -2D Echo: EF 60-65% - on Lasix, lisinopril, Coreg 2. undiagnosed COPD exacerbation -Patient reports extensive history of smoking, over 30 years -Patient education provided on smoking cessation -Patient denies use of home oxygen -We will continue breathing treatment - Continue supplemental oxygen 3. Respiratory distress, likely secondary to #1 and #2 4. bilateral lower extremity edema -Negative for DVT on V/D US -SCD and ambulation for DVT prophylaxis -Continue Lasix 5. Hypothyroidism -On levothyroxine 6. Pulmonary congestion - on Lasix - supplemental oxygen as needed 7. hypotension, likely secondary to diuresis - s/p NS bolus The care for this patient was discussed with my supervising physician. Time spent for this case was approximately 31 minutes. Geoff Scott Jan 20, 2021 09:24
--- NOTE | 2021-01-20 11:37 | Nephrology Progress Note ---
Assessment/Plan Problem List: (1) ABIOLA (acute kidney injury) (2) CHF (congestive heart failure) (3) COPD (chronic obstructive pulmonary disease) (4) UTI (urinary tract infection) (5) Obesity Assessment Renal failure: Rising serum creatinine multifactorial. Mainly treatment for CHF with lisinopril and Lasix Congestive heart failure History of hypertension History of COPD Obesity, BMI 42.3 Elevated TSH: Hypothyroidism Plan January 20: Labs reviewed. Medication list reviewed. Serum creatinine 1.4 unchanged. Continue per consultants. Blood pressure dropped as a result Lasix on hold. Allopurinol added. Continue to monitor renal parameters.Discussed with Dr Garrido . Parameters for Coreg and Lisinopril, 24-hour urine collection for total protein ordered. Will change Synthroid to IV for the next few days. Continue to optimize pulmonary and cardiac status Monitor renal parameters electrolytes Start Synthroid Stool softener and gastric support Per orders Subjective ROS Limited/Unobtainable: No Constitutional: Reports: malaise, weakness Objective Objective Last 24 Hour Vital Signs Date Time Temp Pulse Resp B/P (MAP) Pulse Ox O2 Delivery O2 Flow Rate FiO2 01/20/21 09:00 113/74 01/20/21 08:47 65 113/74 01/20/21 08:05 99 Nasal Cannula 2.0 28 01/20/21 08:00 1.0 01/20/21 08:00 Nasal Cannula 1.0 01/20/21 08:00 97.0 65 20 113/74 (87) 100 01/20/21 08:00 59 01/20/21 04:00 97.2 55 20 85/57 (66) 96 01/20/21 03:40 Nasal Cannula 1.0 01/20/21 03:40 1.0 01/20/21 03:40 48 01/19/21 23:48 60 01/19/21 23:40 97.6 60 20 90/60 (70) 97 01/19/21 23:40 Nasal Cannula 1.0 01/19/21 23:40 1.0 01/19/21 20:28 96/60 01/19/21 20:27 62 96/60 01/19/21 20:15 Nasal Cannula 1.0 01/19/21 20:00 62 01/19/21 20:00 98.5 64 20 96/60 (72) 100 01/19/21 20:00 1.0 01/19/21 19:49 96 Nasal Cannula 2.0 28 01/19/21 16:00 Nasal Cannula 1.0 01/19/21 16:00 96.9 62 18 109/78 (88) 95 01/19/21 16:00 64 01/19/21 16:00 1.0 01/19/21 12:00 Nasal Cannula 1.0 01/19/21 12:00 96.9 64 18 103/69 (80) 95 01/19/21 12:00 68 01/19/21 12:00 1.0 Current Medications Medications (Trade) Dose Ordered Sig/Della Route PRN Reason Start Time Stop Time Status Last Admin Dose Admin Acetaminophen (Tylenol) 500 mg Q6H PRN ORAL Mild Pain (Pain Scale 1-3) 01/18/21 22:30 02/17/21 22:29 Albuterol/ Ipratropium (Albuterol/ Ipratropium) 3 ml Q6HRT PRN HHN Shortness of breath 01/19/21 11:00 01/24/21 10:59 Carvedilol (Coreg) 12.5 mg EVERY 12 HOURS ORAL 01/18/21 21:00 02/17/21 20:59 01/20/21 08:47 Ceftriaxone Sodium 1 gm/ Dextrose 55 ml @ 110 mls/hr Q24H IVPB 01/19/21 08:00 01/26/21 07:59 01/20/21 08:46 Clonidine HCl (Catapres Tab) 0.1 mg Q4H PRN ORAL sbp>170 01/18/21 16:15 04/18/21 16:14 Docusate Sodium (Colace) 100 mg THREE TIMES A DAY ORAL 01/19/21 13:00 02/18/21 12:59 01/20/21 08:46 Levothyroxine Sodium (Synthroid) 50 mcg DAILY@0630 ORAL 01/20/21 06:30 02/19/21 06:29 01/20/21 05:46 Lisinopril (ZestriL) 10 mg EVERY 12 HOURS ORAL 01/18/21 21:00 02/17/21 20:59 01/18/21 22:09 Pantoprazole (Protonix) 40 mg EVERY 12 HOURS ORAL 01/19/21 21:00 02/18/21 20:59 3/1/21 08:48 Intake and Output 01/19/21 01/20/21 19:00 07:00 Intake Total 355 ml 240 ml Balance 355 ml 240 ml Intake Oral 300 ml 240 ml IV Total 55 ml # Voids 2 1 Laboratory Tests 01/20/21 04:58: White Blood Count 9.0, Red Blood Count 3.76L, Hemoglobin 12.7, Hematocrit 40.2, Mean Corpuscular Volume 107H, Mean Corpuscular Hemoglobin 33.7H, Mean Corpuscular Hemoglobin Concent 31.6L, Red Cell Distribution Width 15.2H, Platelet Count 300, Mean Platelet Volume 6.2L, Neutrophils (%) (Auto) 58.3, Lymphocytes (%) (Auto) 33.6, Monocytes (%) (Auto) 5.4, Eosinophils (%) (Auto) 1.6, Basophils (%) (Auto) 1.2, Sodium Level 140, Potassium Level 3.6, Chloride Level 101, Carbon Dioxide Level 32, Anion Gap 8, Blood Urea Nitrogen 32H, Creatinine 1.4H, Estimat Glomerular Filtration Rate 47.1, Glucose Level 99, Hemoglobin A1c 6.5H, Uric Acid 8.1H, Calcium Level 9.4, Phosphorus Level 4.8, Magnesium Level 2.6H, Iron Level 64, Total Iron Binding Capacity 348, Percent Iron Saturation 18, Unsaturated Iron Binding 284, Ferritin 32, Total Bilirubin 0.3, Gamma Glutamyl Transpeptidase 24, Aspartate Amino Transf (AST/SGOT) 18, Alanine Aminotransferase (ALT/SGPT) 13, Alkaline Phosphatase 57, C-Reactive Protein, Quantitative < 0.4, Pro-B-Type Natriuretic Peptide 1105H, Total Protein 7.3, Albumin 4.0, Globulin 3.3, Albumin/Globulin Ratio 1.2, Triglycerides Level 126, Cholesterol Level 234H, LDL Cholesterol 127H, HDL Cholesterol 81H, Cholesterol/HDL Ratio 2.9L, Vitamin B12 Level 430, Vitamin D 25-Hydroxy [Pending], 25-Hydroxy Vitamin D2 [Pending], 25-Hydroxy Vitamin D3 [Pending], Folate 9.3, Free Thyroxine 0.48L, Free Triiodothyronine 0.9L Height (Feet): 5 Height (Inches): 10.00 Weight (Pounds): 295 General Appearance: lethargic Cardiovascular: normal rate Respiratory/Chest: decreased breath sounds Abdomen: distended Extremities: other - 1-2+ edema Adilson Yang MD Jan 20, 2021 11:37
--- NOTE | 2021-01-20 11:42 | Cardiac Electrophysiology PN ---
Assessment/Plan Assessment/Plan 1. Bilateral lower extremity edema and shortness of breath. BNP is also elevated at 439. Lower extremity duplex showed no evidence of DVT. Echo showed Nl ejection fraction 65%. DC Lasix as BP was in 70s 2. History of hypertension.Now BP in 70-80s. DC iv Lasix. Hold lisinopril 10 and carvedilol 12.5 po bid for SBP< 100 3. History of COPD. 4. Hypothyroidism, now on Synthroid EPIFANIO RN and Dr. Yang Subjective Subjective Was vince down to 48 and hypotensive in 80s that got better after 500 cc NS ECho EF 65% Objective Last 24 Hour Vital Signs Date Time Temp Pulse Resp B/P (MAP) Pulse Ox O2 Delivery O2 Flow Rate FiO2 01/20/21 09:00 113/74 01/20/21 08:47 65 113/74 01/20/21 08:05 99 Nasal Cannula 2.0 28 01/20/21 08:00 1.0 01/20/21 08:00 Nasal Cannula 1.0 01/20/21 08:00 97.0 65 20 113/74 (87) 100 01/20/21 08:00 59 01/20/21 04:00 97.2 55 20 85/57 (66) 96 01/20/21 03:40 Nasal Cannula 1.0 01/20/21 03:40 1.0 01/20/21 03:40 48 01/19/21 23:48 60 01/19/21 23:40 97.6 60 20 90/60 (70) 97 01/19/21 23:40 Nasal Cannula 1.0 01/19/21 23:40 1.0 01/19/21 20:28 96/60 01/19/21 20:27 62 96/60 01/19/21 20:15 Nasal Cannula 1.0 01/19/21 20:00 62 01/19/21 20:00 98.5 64 20 96/60 (72) 100 01/19/21 20:00 1.0 01/19/21 19:49 96 Nasal Cannula 2.0 28 01/19/21 16:00 Nasal Cannula 1.0 01/19/21 16:00 96.9 62 18 109/78 (88) 95 01/19/21 16:00 64 01/19/21 16:00 1.0 01/19/21 12:00 Nasal Cannula 1.0 01/19/21 12:00 96.9 64 18 103/69 (80) 95 01/19/21 12:00 68 01/19/21 12:00 1.0 Intake and Output 01/19/21 01/20/21 19:00 07:00 Intake Total 355 ml 240 ml Balance 355 ml 240 ml Intake Oral 300 ml 240 ml IV Total 55 ml # Voids 2 1 Laboratory Tests Test 01/20/21 04:58 White Blood Count 9.0 K/UL (4.8-10.8) Red Blood Count 3.76 M/UL (4.20-5.40) L Hemoglobin 12.7 G/DL (12.0-16.0) Hematocrit 40.2 % (37.0-47.0) Mean Corpuscular Volume 107 FL (80-99) H Mean Corpuscular Hemoglobin 33.7 PG (27.0-31.0) H Mean Corpuscular Hemoglobin Concent 31.6 G/DL (32.0-36.0) L Red Cell Distribution Width 15.2 % (11.6-14.8) H Platelet Count 300 K/UL (150-450) Mean Platelet Volume 6.2 FL (6.5-10.1) L Neutrophils (%) (Auto) 58.3 % (45.0-75.0) Lymphocytes (%) (Auto) 33.6 % (20.0-45.0) Monocytes (%) (Auto) 5.4 % (1.0-10.0) Eosinophils (%) (Auto) 1.6 % (0.0-3.0) Basophils (%) (Auto) 1.2 % (0.0-2.0) Sodium Level 140 MMOL/L (136-145) Potassium Level 3.6 MMOL/L (3.5-5.1) Chloride Level 101 MMOL/L (98-107) Carbon Dioxide Level 32 MMOL/L (21-32) Anion Gap 8 mmol/L (5-15) Blood Urea Nitrogen 32 mg/dL (7-18) H Creatinine 1.4 MG/DL (0.55-1.30) H Estimat Glomerular Filtration Rate 47.1 mL/min (>60) Glucose Level 99 MG/DL (74-106) Hemoglobin A1c 6.5 % (4.3-6.0) H Uric Acid 8.1 MG/DL (2.6-7.2) H Calcium Level 9.4 MG/DL (8.5-10.1) Phosphorus Level 4.8 MG/DL (2.5-4.9) Magnesium Level 2.6 MG/DL (1.8-2.4) H Iron Level 64 ug/dL (50-175) Total Iron Binding Capacity 348 ug/dL (250-450) Percent Iron Saturation 18 % (15-50) Unsaturated Iron Binding 284 ug/dL (112-346) Ferritin 32 NG/ML (8-388) Total Bilirubin 0.3 MG/DL (0.2-1.0) Gamma Glutamyl Transpeptidase 24 U/L (5-85) Aspartate Amino Transf (AST/SGOT) 18 U/L (15-37) Alanine Aminotransferase (ALT/SGPT) 13 U/L (12-78) Alkaline Phosphatase 57 U/L (46-116) C-Reactive Protein, Quantitative < 0.4 mg/dL (0.00-0.90) Pro-B-Type Natriuretic Peptide 1105 pg/mL (0-125) H Total Protein 7.3 G/DL (6.4-8.2) Albumin 4.0 G/DL (3.4-5.0) Globulin 3.3 g/dL Albumin/Globulin Ratio 1.2 (1.0-2.7) Triglycerides Level 126 MG/DL (30-150) Cholesterol Level 234 MG/DL (< 200) H LDL Cholesterol 127 mg/dL (<100) H HDL Cholesterol 81 MG/DL (40-60) H Cholesterol/HDL Ratio 2.9 (3.3-4.4) L Vitamin B12 Level 430 PG/ML (193-986) Vitamin D 25-Hydroxy Pending 25-Hydroxy Vitamin D2 Pending 25-Hydroxy Vitamin D3 Pending Folate 9.3 NG/ML (8.6-58.9) Free Thyroxine 0.48 NG/DL (0.76-1.46) L Free Triiodothyronine 0.9 pg/mL (2.3-4.2) L Microbiology Date/Time Source Procedure Growth Status 01/18/21 18:40 Blood Blood Culture - Preliminary NO GROWTH AFTER 24 HOURS Resulted 01/18/21 13:46 Blood Blood Culture - Preliminary NO GROWTH AFTER 24 HOURS Resulted 01/18/21 13:44 Nasopharynx SARS-CoV-2 Antigen (Rapid)(MIKA) - Final Complete Objective HEAD AND NECK: Shows positive JVD. LUNGS: Decreased breath sounds. CARDIOVASCULAR: Shows regular S1 and S2 with no gallop. ABDOMEN: Soft. EXTREMITIES: 2+ pitting edema. Raffy Garrido MD Jan 20, 2021 11:42
[2021-01-20 12:00] VITALS: BP 112/67
--- NOTE | 2021-01-20 13:44 | Consultation ---
DATE OF CONSULTATION: 01/20/2021 INFECTIOUS DISEASES CONSULTATION CONSULTING PHYSICIAN: Amilcar Rodriguez MD PRIMARY ATTENDING PHYSICIAN: Ragini Naylor MD REASON FOR CONSULTATION: COPD exacerbation. HISTORY OF PRESENT ILLNESS: This is a 55-year-old female admitted on 01/18/2021 from home complaining of edema of legs, pain in ankles, has shortness of breath, wheezing. The patient's symptoms started 10 days before admission. None of the patient primary doctor ordered Lasix. The patient has some improvement in leg edema, states does have wheezing. PAST MEDICAL HISTORY: Significant for hyperlipidemia, hypothyroidism, morbid obesity, nicotine dependence. ALLERGIES: No known drug allergies. MEDICATIONS: Getting levothyroxine, allopurinol, Protonix, albuterol ipratropium inhaler, ceftriaxone, Tylenol, carvedilol, lisinopril, clonidine. SOCIAL HISTORY: Single. Lives with daughter. Smoking for 30 years, recently decreased to 4 cigarettes a day. Denies alcohol, drug abuse. REVIEW OF SYSTEMS: No fever. No chills. Has shortness of breath, dry cough, wheezing sensation. No nausea. No vomiting. No dysuria. Has swelling of the legs that is decreased. PHYSICAL EXAMINATION: VITAL SIGNS: Temperature 97.5, pulse 65, blood pressure 113/74. GENERAL APPEARANCE: Obese. No acute distress. HEAD AND NECK: [place] conjunctiva. HEART: Normal rate. LUNGS: Few rhonchi bilaterally. ABDOMEN: Obese and soft. EXTREMITIES: Some edema of legs. NEUROLOGIC: Awake, alert, oriented x3. LABORATORY AND DIAGNOSTIC DATA: WBC 9, hemoglobin 12.7, hematocrit 40.2, platelets is 300. ABG at the time of admission showed pCO2 of 50.4, , O2 saturation 85%. Blood cultures x2 are negative. COVID test is negative. Echocardiogram showed ejection fraction of 60 to 65%, but have severe diastolic congestive heart failure. Venous duplex was negative for DVT. Chest x-ray showed cardiomegaly and congestion, no consolidation. IMPRESSION: 1. COPD with exacerbation. 2. Hypoxemia. 3. Diastolic CHF. 4. Acute renal failure. 5. Morbid obesity. 6. Hypothyroidism. 7. Nicotine dependence. RECOMMENDATION: Continue with ceftriaxone. We will followup the cultures. The patient is willing to stop smoking. At the end of my exam, I thank Dr. Naylor for involving me in the care of this patient. Amilcar Rodriguez M.D. DR: Kristy JOB#: [id number] CC:
[2021-01-20 16:00] VITALS: BP 105/68
--- NOTE | 2021-01-20 18:00 | NUR ---
ATE 100% OF HER DINNER ,WENT BR VOIDED ,STILL HAVING SOB ON EXERTION
--- NOTE | 2021-01-20 19:21 | NUR ---
NURSE NOTES: Received patient awake in bed, AOx4, no s/s of acute distress. Patient currently on nasal cannula 1L, feels more comfortable to have it on. Patient educated on 24 hour urine collection, hat placed in bathroom toilet, patient verbalized understanding. Bed low and locked, patient wearing non slip socks.
[2021-01-20 20:00] VITALS: BP 96/59
--- NOTE | 2021-01-20 20:18 | General Progress Note ---
Subjective ROS Limited/Unobtainable: Yes Allergies: Coded Allergies: No Known Allergies (Verified Allergy, Mild, 03/23/10) Objective Last 24 Hour Vital Signs Date Time Temp Pulse Resp B/P (MAP) Pulse Ox O2 Delivery O2 Flow Rate FiO2 01/20/21 20:00 Nasal Cannula 3.0 01/20/21 20:00 66 01/20/21 16:00 97.2 67 20 105/68 (80) 99 01/20/21 16:00 1.0 01/20/21 16:00 Nasal Cannula 1.0 01/20/21 16:00 73 01/20/21 12:00 1.0 01/20/21 12:00 96.8 68 21 112/67 (82) 100 01/20/21 12:00 72 01/20/21 12:00 Nasal Cannula 1.0 01/20/21 09:00 113/74 01/20/21 08:47 65 113/74 01/20/21 08:05 99 Nasal Cannula 2.0 28 01/20/21 08:00 1.0 01/20/21 08:00 Nasal Cannula 1.0 01/20/21 08:00 97.0 65 20 113/74 (87) 100 01/20/21 08:00 59 01/20/21 04:00 97.2 55 20 85/57 (66) 96 01/20/21 03:40 Nasal Cannula 1.0 01/20/21 03:40 1.0 01/20/21 03:40 48 01/19/21 23:48 60 01/19/21 23:40 97.6 60 20 90/60 (70) 97 01/19/21 23:40 Nasal Cannula 1.0 01/19/21 23:40 1.0 01/19/21 20:28 96/60 01/19/21 20:27 62 96/60 Intake and Output 01/19/21 01/20/21 19:00 07:00 Intake Total 355 ml 240 ml Balance 355 ml 240 ml Intake Oral 300 ml 240 ml IV Total 55 ml # Voids 2 1 Laboratory Tests 01/20/21 04:58: White Blood Count 9.0, Red Blood Count 3.76L, Hemoglobin 12.7, Hematocrit 40.2, Mean Corpuscular Volume 107H, Mean Corpuscular Hemoglobin 33.7H, Mean Corpuscular Hemoglobin Concent 31.6L, Red Cell Distribution Width 15.2H, Platelet Count 300, Mean Platelet Volume 6.2L, Neutrophils (%) (Auto) 58.3, Lymphocytes (%) (Auto) 33.6, Monocytes (%) (Auto) 5.4, Eosinophils (%) (Auto) 1.6, Basophils (%) (Auto) 1.2, Sodium Level 140, Potassium Level 3.6, Chloride Level 101, Carbon Dioxide Level 32, Anion Gap 8, Blood Urea Nitrogen 32H, Creatinine 1.4H, Estimat Glomerular Filtration Rate 47.1, Glucose Level 99, Hemoglobin A1c 6.5H, Uric Acid 8.1H, Calcium Level 9.4, Phosphorus Level 4.8, Magnesium Level 2.6H, Iron Level 64, Total Iron Binding Capacity 348, Percent Iron Saturation 18, Unsaturated Iron Binding 284, Ferritin 32, Total Bilirubin 0.3, Gamma Glutamyl Transpeptidase 24, Aspartate Amino Transf (AST/SGOT) 18, Alanine Aminotransferase (ALT/SGPT) 13, Alkaline Phosphatase 57, C-Reactive Protein, Quantitative < 0.4, Pro-B-Type Natriuretic Peptide 1105H, Total Protein 7.3, Albumin 4.0, Globulin 3.3, Albumin/Globulin Ratio 1.2, Triglycerides Level 126, Cholesterol Level 234H, LDL Cholesterol 127H, HDL Cholesterol 81H, Cholesterol/HDL Ratio 2.9L, Vitamin B12 Level 430, Vitamin D 25-Hydroxy [Pending], 25-Hydroxy Vitamin D2 [Pending], 25-Hydroxy Vitamin D3 [Pending], Folate 9.3, Free Thyroxine 0.48L, Free Triiodothyronine 0.9L Height (Feet): 5 Height (Inches): 10.00 Weight (Pounds): 295 Assessment/Plan Problem List: (1) Cardiomegaly ICD Codes: I51.7 - Cardiomegaly SNOMED: 3096045 (2) COPD (chronic obstructive pulmonary disease) ICD Codes: J44.9 - Chronic obstructive pulmonary disease, unspecified SNOMED: 76546522 (3) CHF (congestive heart failure) ICD Codes: I50.9 - Heart failure, unspecified SNOMED: 80860592 (4) UTI (urinary tract infection) ICD Codes: N39.0 - Urinary tract infection, site not specified SNOMED: 55725888 (5) ABIOLA (acute kidney injury) ICD Codes: N17.9 - Acute kidney failure, unspecified SNOMED: 8419998, 66311397 (6) Obesity ICD Codes: E66.9 - Obesity, unspecified SNOMED: 103001771, 902077646 Status: progressing Status Narrative afebrile chf is improving copd is improving resp insuff uti azotmia reviewed chart Ragini Naylor MD Jan 20, 2021 20:18
--- NOTE | 2021-01-20 23:34 | NUR ---
NURSE NOTES: Patient resting comfortably in bed, no s/s of acute distress. Nasal cannula still on 3L per RT recommendation.
[2021-01-21] VITALS: BP 105/67
--- NOTE | 2021-01-21 03:54 | NUR ---
NURSE NOTES: Patient awake in bed, resting comfortably, no s/s of acute distress. Patient given sandwich and ice chips per patient's request. Patient still on 3L nasal cannula per RT recommendation, O2 sat 95%.
[2021-01-21 04:00] VITALS: BP 109/69
[2021-01-21 06:06] LABS: ALBUMIN 4.2 G/DL (3.4-5.0); ALBUMIN/GLOBULIN RATIO 1.2 (1.0-2.7); BILIRUBIN,TOTAL 0.5 MG/DL (0.2-1.0); CREATININE 1.3 MG/DL (0.55-1.30); PHOSPHORUS 3.8 MG/DL (2.5-4.9); POTASSIUM 3.7 MMOL/L (3.5-5.1)
--- NOTE | 2021-01-21 07:02 | NUR ---
NURSE NOTES: Report given to LATONIA Rizvi
--- NOTE | 2021-01-21 07:05 | NUR ---
NURSE NOTES: Received report from LATONIA Weeks. Patient in bed resting, no active s/s cardiac, respiratory distress noticed at this time, Patient AOx4, SR with HR 70. Patient on 1L oxygen via NC, O2 sat 92%, IV on right hand 20G, asymptomatic, patent, intact. Per Patient lower extremities dependent edema , decrease in pain on leg, tender to touch. IV on right hand 20g, asymptomatic, patent, intact. Endorsed need of 24HR urine collection, started 199901/20/21, patient aware of 24HR urine collection. Bed in lowest position, side rails upx3, call light within reach, bed alarm on, Will continue to monitor.
[2021-01-21 08:00] VITALS: BP 113/68
--- NOTE | 2021-01-21 08:18 | Cardiac Electrophysiology PN ---
Assessment/Plan Assessment/Plan 1. Bilateral lower extremity edema and shortness of breath. BNP elevated at 439. Lower extremity duplex showed no evidence of DVT. Echo showed Nl ejection fraction 65%. Off Lasix due to low BP 2. History of hypertension. BP better after DCed iv Lasix. On lisinopril 10 and carvedilol 12.5 po bid 3. History of COPD. 4. Hypothyroidism, now on Synthroid DW RN and Dr. Yang Subjective Subjective Was vince down to 48 and hypotensive in 80s that got better after 500 cc NS ECho EF 65%. On 1.5 liter nasal cannula. shift leader RN at bedside Objective Last 24 Hour Vital Signs Date Time Temp Pulse Resp B/P (MAP) Pulse Ox O2 Delivery O2 Flow Rate FiO2 01/21/21 08:00 97.2 63 20 113/68 (83) 94 01/21/21 04:00 3.0 01/21/21 04:00 97.3 70 20 109/69 (82) 94 01/21/21 04:00 82 01/21/21 04:00 Nasal Cannula 3.0 01/21/21 00:08 Nasal Cannula 3.0 01/21/21 00:00 97.1 68 19 105/67 (80) 95 01/21/21 00:00 80 01/20/21 20:38 66 96/59 01/20/21 20:38 96/59 01/20/21 20:19 95 Nasal Cannula 3.0 32 01/20/21 20:00 3.0 01/20/21 20:00 Nasal Cannula 3.0 01/20/21 20:00 66 01/20/21 20:00 97.2 70 20 96/59 (71) 95 01/20/21 16:00 97.2 67 20 105/68 (80) 99 01/20/21 16:00 1.0 01/20/21 16:00 Nasal Cannula 1.0 01/20/21 16:00 73 01/20/21 12:00 1.0 01/20/21 12:00 96.8 68 21 112/67 (82) 100 01/20/21 12:00 72 01/20/21 12:00 Nasal Cannula 1.0 01/20/21 09:00 113/74 01/20/21 08:47 65 113/74 Intake and Output 01/20/21 01/21/21 19:00 07:00 Intake Total 755 ml 150 ml Balance 755 ml 150 ml Intake Oral 700 ml 150 ml IV Total 55 ml # Voids 6 2 Laboratory Tests Test 01/21/21 03:20 Sodium Level 140 MMOL/L (136-145) Potassium Level 3.7 MMOL/L (3.5-5.1) Chloride Level 100 MMOL/L (98-107) Carbon Dioxide Level 36 MMOL/L (21-32) H Anion Gap 4 mmol/L (5-15) L Blood Urea Nitrogen 27 mg/dL (7-18) H Creatinine 1.3 MG/DL (0.55-1.30) Estimat Glomerular Filtration Rate 51.4 mL/min (>60) Glucose Level 103 MG/DL (74-106) Uric Acid 7.3 MG/DL (2.6-7.2) H Calcium Level 9.0 MG/DL (8.5-10.1) Phosphorus Level 3.8 MG/DL (2.5-4.9) Magnesium Level 2.4 MG/DL (1.8-2.4) Total Bilirubin 0.5 MG/DL (0.2-1.0) Aspartate Amino Transf (AST/SGOT) 19 U/L (15-37) Alanine Aminotransferase (ALT/SGPT) 20 U/L (12-78) Alkaline Phosphatase 67 U/L (46-116) Total Protein 7.8 G/DL (6.4-8.2) Albumin 4.2 G/DL (3.4-5.0) Globulin 3.6 g/dL Albumin/Globulin Ratio 1.2 (1.0-2.7) Microbiology Date/Time Source Procedure Growth Status 01/18/21 18:40 Blood Blood Culture - Preliminary NO GROWTH AFTER 24 HOURS Resulted 01/18/21 13:46 Blood Blood Culture - Preliminary NO GROWTH AFTER 24 HOURS Resulted 01/18/21 13:44 Nasopharynx SARS-CoV-2 Antigen (Rapid)(MIKA) - Final Complete Objective HEAD AND NECK: Shows positive JVD. LUNGS: Decreased breath sounds. CARDIOVASCULAR: Shows regular S1 and S2 with no gallop. ABDOMEN: Soft. EXTREMITIES: 2+ pitting edema. Raffy Garrido MD Jan 21, 2021 08:17
--- NOTE | 2021-01-21 08:39 | NUR ---
RD ASSESSMENT & RECOMMENDATIONS SEE CARE ACTIVITY FOR COMPLETE ASSESSMENT DAILY ESTIMATED NEEDS: Needs based on Pulmonary, cardiac, obese 83kg abw 20-25 kcals/kg 9319-0265 total kcals 1-1.5 g protein/kg 83-125 g total protein Fluid per MD, on lasix NUTRITION DIAGNOSIS: Decreased fat and sodium needs r/t cardiac history and obesity as evidenced by pt w/ CHF, on lasix, BL leg 3+ edema, BMI>40, 189% of ideal body weight. CURRENT DIET: Cardiac PO DIET RECOMMENDATIONS: Continue Cardiac diet ADDITIONAL RECOMMENDATIONS: 1) Rec accuchecks/ bed side BG checks w/ niss Add CCHO LOW diet w/ elevated BG 2) Obtain calibrated bed scale wts while on lasix 3) Add B-complex w/ lasix 4) Monitor resp status and continued good po intake
[2021-01-21] MEDS: Docusate 100mg cap ORAL SCH ×3 (08:47→17:40)
[2021-01-21] MEDS: cefTRIAXone 1 GM in D5W 55 ML IVPB SCH (08:47)
[2021-01-21] MEDS: Carvedilol 12.5mg tab ORAL SCH ×2 (09:00→21:00)
[2021-01-21] MEDS: Lisinopril 10mg tab ORAL SCH ×2 (09:00→21:00)
[2021-01-21] MEDS: Albuterol/Ipratropium 3ml neb HHN SCH ×3 (09:20→19:06)
--- NOTE | 2021-01-21 09:33 | Pulmonology Progress Note ---
Subjective ROS Limited/Unobtainable: Yes Interval Events: hypotension -> now off lasix Constitutional: Reports: no symptoms HEENT: Repors: no symptoms Respiratory: Reports: shortness of breath Cardiovascular: Reports: no symptoms Gastrointestinal/Abdominal: Reports: no symptoms Allergies: Coded Allergies: No Known Allergies (Verified Allergy, Mild, 03/23/10) Objective Last 24 Hour Vital Signs Date Time Temp Pulse Resp B/P (MAP) Pulse Ox O2 Delivery O2 Flow Rate FiO2 01/21/21 09:00 63 113/68 01/21/21 09:00 113/68 01/21/21 08:00 79 01/21/21 08:00 97.2 63 20 113/68 (83) 94 01/21/21 04:00 3.0 01/21/21 04:00 97.3 70 20 109/69 (82) 94 01/21/21 04:00 82 01/21/21 04:00 Nasal Cannula 3.0 01/21/21 00:08 Nasal Cannula 3.0 01/21/21 00:00 97.1 68 19 105/67 (80) 95 01/21/21 00:00 80 01/20/21 20:38 66 96/59 01/20/21 20:38 96/59 01/20/21 20:19 95 Nasal Cannula 3.0 32 01/20/21 20:00 3.0 01/20/21 20:00 Nasal Cannula 3.0 01/20/21 20:00 66 01/20/21 20:00 97.2 70 20 96/59 (71) 95 01/20/21 16:00 97.2 67 20 105/68 (80) 99 01/20/21 16:00 1.0 01/20/21 16:00 Nasal Cannula 1.0 01/20/21 16:00 73 01/20/21 12:00 1.0 01/20/21 12:00 96.8 68 21 112/67 (82) 100 01/20/21 12:00 72 01/20/21 12:00 Nasal Cannula 1.0 Intake and Output 01/20/21 01/21/21 19:00 07:00 Intake Total 755 ml 150 ml Balance 755 ml 150 ml Intake Oral 700 ml 150 ml IV Total 55 ml # Voids 6 2 General Appearance: no acute distress HEENT: atraumatic Respiratory: decreased breath sounds Cardiovascular: normal rate, regular rhythm Abdomen: soft, non tender Musculoskeletal: other - LE edema Microbiology Date/Time Source Procedure Growth Status 01/18/21 18:40 Blood Blood Culture - Preliminary NO GROWTH AFTER 48 HOURS Resulted 01/18/21 13:46 Blood Blood Culture - Preliminary NO GROWTH AFTER 48 HOURS Resulted 01/18/21 13:44 Nasopharynx SARS-CoV-2 Antigen (Rapid)(MIKA) - Final Complete Laboratory Tests 01/21/21 03:20: Sodium Level 140, Potassium Level 3.7, Chloride Level 100, Carbon Dioxide Level 36H, Anion Gap 4L, Blood Urea Nitrogen 27H, Creatinine 1.3, Estimat Glomerular Filtration Rate 51.4, Glucose Level 103, Uric Acid 7.3H, Calcium Level 9.0, Phosphorus Level 3.8, Magnesium Level 2.4, Total Bilirubin 0.5, Aspartate Amino Transf (AST/SGOT) 19, Alanine Aminotransferase (ALT/SGPT) 20, Alkaline Phosphatase 67, Total Protein 7.8, Albumin 4.2, Globulin 3.6, Albumin/Globulin Ratio 1.2 Current Medications Medications (Trade) Dose Ordered Sig/Della Route PRN Reason Start Time Stop Time Status Last Admin Dose Admin Acetaminophen (Tylenol) 500 mg Q6H PRN ORAL Mild Pain (Pain Scale 1-3) 01/18/21 22:30 02/17/21 22:29 Albuterol/ Ipratropium (Albuterol/ Ipratropium) 3 ml Q6HRT HHN 01/21/21 09:00 01/24/21 08:59 01/21/21 09:20 Allopurinol (allopurinoL) 300 mg DAILY ORAL 01/20/21 11:45 02/19/21 11:44 01/21/21 08:47 Carvedilol (Coreg) 12.5 mg EVERY 12 HOURS ORAL 01/18/21 21:00 02/17/21 20:59 01/20/21 08:47 Ceftriaxone Sodium 1 gm/ Dextrose 55 ml @ 110 mls/hr Q24H IVPB 01/19/21 08:00 01/26/21 07:59 01/21/21 08:47 Clonidine HCl (Catapres Tab) 0.1 mg Q4H PRN ORAL sbp>170 01/18/21 16:15 04/18/21 16:14 Docusate Sodium (Colace) 100 mg THREE TIMES A DAY ORAL 01/19/21 13:00 02/18/21 12:59 01/21/21 08:47 Levothyroxine Sodium (Synthroid) 50 mcg DAILY IV 01/20/21 13:00 02/19/21 12:59 01/21/21 08:47 Lisinopril (ZestriL) 10 mg EVERY 12 HOURS ORAL 01/18/21 21:00 02/17/21 20:59 01/18/21 22:09 Pantoprazole (Protonix) 40 mg EVERY 12 HOURS ORAL 01/19/21 21:00 02/18/21 20:59 01/21/21 08:47 Assessment/Plan Assessment/Plan 1. CHF exacerbation with elevated BNP -Cardio following -2D Echo: EF 60-65% - on Lasix, lisinopril, Coreg -> now off lasix given hypotension 2. undiagnosed COPD exacerbation -Patient reports extensive history of smoking, over 30 years -Patient education provided on smoking cessation -Patient denies use of home oxygen -We will continue breathing treatment - Continue supplemental oxygen 3. Respiratory distress, likely secondary to #1 and #2 - Desaturated to 81% on room air this AM; continue supplemental oxygen - will start Solu-Medrol 40 mg Q8hr 4. bilateral lower extremity edema -Negative for DVT on V/D US -SCD and ambulation for DVT prophylaxis -Continue Lasix -> now off Lasix given hypotension 5. Hypothyroidism -On levothyroxine 6. Pulmonary congestion - on Lasix -> now off lasix given hypotension - supplemental oxygen as needed 7. hypotension, likely secondary to diuresis - s/p NS bolus - now off Lasix The care for this patient was discussed with my supervising physician. Time spent for this case was approximately 31 minutes. Geoff Scott Jan 21, 2021 09:33
[2021-01-21] MEDS: Solu-MEDROL 40mg Inj IVP SCH ×4 (10:30→21:18)
--- NOTE | 2021-01-21 10:41 | NUR ---
PT NOTE Received MD order for PT evaluation. Belkys LINCOLN requesting to defer PT evaluation until tomorrow as patient is still desaturating on room air. Will follow up tomorrow.
--- NOTE | 2021-01-21 11:38 | General Progress Note ---
Subjective ROS Limited/Unobtainable: Yes Allergies: Coded Allergies: No Known Allergies (Verified Allergy, Mild, 03/23/10) Objective Last 24 Hour Vital Signs Date Time Temp Pulse Resp B/P (MAP) Pulse Ox O2 Delivery O2 Flow Rate FiO2 01/21/21 09:30 70 18 97 Nasal Cannula 2.0 28 01/21/21 09:30 70 18 96 Nasal Cannula 2.0 28 72 18 92 01/21/21 09:00 63 113/68 01/21/21 09:00 113/68 01/21/21 08:00 79 01/21/21 08:00 97.2 63 20 113/68 (83) 94 01/21/21 08:00 Nasal Cannula 2.0 01/21/21 08:00 2.0 01/21/21 07:00 92 Nasal Cannula 3.0 32 01/21/21 04:00 3.0 01/21/21 04:00 97.3 70 20 109/69 (82) 94 01/21/21 04:00 82 01/21/21 04:00 Nasal Cannula 3.0 01/21/21 00:08 Nasal Cannula 3.0 01/21/21 00:00 97.1 68 19 105/67 (80) 95 01/21/21 00:00 80 01/20/21 20:38 66 96/59 01/20/21 20:38 96/59 01/20/21 20:19 95 Nasal Cannula 3.0 32 01/20/21 20:00 3.0 01/20/21 20:00 Nasal Cannula 3.0 01/20/21 20:00 66 01/20/21 20:00 97.2 70 20 96/59 (71) 95 01/20/21 16:00 97.2 67 20 105/68 (80) 99 01/20/21 16:00 1.0 01/20/21 16:00 Nasal Cannula 1.0 01/20/21 16:00 73 01/20/21 12:00 1.0 01/20/21 12:00 96.8 68 21 112/67 (82) 100 01/20/21 12:00 72 01/20/21 12:00 Nasal Cannula 1.0 Intake and Output 01/20/21 01/21/21 19:00 07:00 Intake Total 755 ml 150 ml Balance 755 ml 150 ml Intake Oral 700 ml 150 ml IV Total 55 ml # Voids 6 2 Laboratory Tests 01/21/21 03:20: Sodium Level 140, Potassium Level 3.7, Chloride Level 100, Carbon Dioxide Level 36H, Anion Gap 4L, Blood Urea Nitrogen 27H, Creatinine 1.3, Estimat Glomerular Filtration Rate 51.4, Glucose Level 103, Uric Acid 7.3H, Calcium Level 9.0, Phosphorus Level 3.8, Magnesium Level 2.4, Total Bilirubin 0.5, Aspartate Amino Transf (AST/SGOT) 19, Alanine Aminotransferase (ALT/SGPT) 20, Alkaline Phosphatase 67, Total Protein 7.8, Albumin 4.2, Globulin 3.6, Albumin/Globulin Ratio 1.2 Height (Feet): 5 Height (Inches): 10.00 Weight (Pounds): 295 Assessment/Plan Problem List: (1) Cardiomegaly ICD Codes: I51.7 - Cardiomegaly SNOMED: 7899499 (2) COPD (chronic obstructive pulmonary disease) ICD Codes: J44.9 - Chronic obstructive pulmonary disease, unspecified SNOMED: 24985528 (3) CHF (congestive heart failure) ICD Codes: I50.9 - Heart failure, unspecified SNOMED: 69527110 (4) UTI (urinary tract infection) ICD Codes: N39.0 - Urinary tract infection, site not specified SNOMED: 75128046 (5) ABIOLA (acute kidney injury) ICD Codes: N17.9 - Acute kidney failure, unspecified SNOMED: 0474319, 73331724 (6) Obesity ICD Codes: E66.9 - Obesity, unspecified SNOMED: 794072914, 459150569 Status: progressing Assessment/Plan: uti chf copd resp insuff on oxygen weak reviewed chart and labs Ragini Naylor MD Jan 21, 2021 11:38
[2021-01-21 12:00] VITALS: BP 105/68
--- NOTE | 2021-01-21 12:18 | Infectious Diseases Prog Note ---
Assessment/Plan Assessment/Plan IMPRESSION: 1. COPD with exacerbation. 2. Hypoxemia. 3. Diastolic CHF. 4. Acute renal failure. 5. Morbid obesity. 6. Hypothyroidism. 7. Nicotine dependence. RECOMMENDATION: Continue with ceftriaxone. We will followup the cultures. Subjective ROS Limited/Unobtainable: No Constitutional: Reports: no symptoms Respiratory: Reports: dry cough Cardiovascular: Reports: no symptoms Gastrointestinal/Abdominal: Reports: no symptoms Genitourinary: Reports: no symptoms Allergies: Coded Allergies: No Known Allergies (Verified Allergy, Mild, 03/23/10) Objective Last 24 Hour Vital Signs Date Time Temp Pulse Resp B/P (MAP) Pulse Ox O2 Delivery O2 Flow Rate FiO2 01/21/21 09:30 70 18 97 Nasal Cannula 2.0 28 01/21/21 09:30 70 18 96 Nasal Cannula 2.0 28 72 18 92 01/21/21 09:00 63 113/68 01/21/21 09:00 113/68 01/21/21 08:00 79 01/21/21 08:00 97.2 63 20 113/68 (83) 94 01/21/21 08:00 Nasal Cannula 2.0 01/21/21 08:00 2.0 01/21/21 07:00 92 Nasal Cannula 3.0 32 01/21/21 04:00 3.0 01/21/21 04:00 97.3 70 20 109/69 (82) 94 01/21/21 04:00 82 01/21/21 04:00 Nasal Cannula 3.0 01/21/21 00:08 Nasal Cannula 3.0 01/21/21 00:00 97.1 68 19 105/67 (80) 95 01/21/21 00:00 80 01/20/21 20:38 66 96/59 01/20/21 20:38 96/59 01/20/21 20:19 95 Nasal Cannula 3.0 32 01/20/21 20:00 3.0 01/20/21 20:00 Nasal Cannula 3.0 01/20/21 20:00 66 01/20/21 20:00 97.2 70 20 96/59 (71) 95 01/20/21 16:00 97.2 67 20 105/68 (80) 99 01/20/21 16:00 1.0 01/20/21 16:00 Nasal Cannula 1.0 01/20/21 16:00 73 Height (Feet): 5 Height (Inches): 10.00 Weight (Pounds): 295 HEENT: mucous membranes moist Respiratory/Chest: lungs clear Cardiovascular: normal rate Abdomen: soft, non tender Extremities: no edema Neurologic/Psychiatric: alert, oriented x 3, responsive Microbiology Date/Time Source Procedure Growth Status 01/18/21 18:40 Blood Blood Culture - Preliminary NO GROWTH AFTER 48 HOURS Resulted 01/18/21 13:46 Blood Blood Culture - Preliminary NO GROWTH AFTER 48 HOURS Resulted 01/18/21 13:44 Nasopharynx SARS-CoV-2 Antigen (Rapid)(MIKA) - Final Complete Laboratory Tests Test 01/21/21 03:20 Sodium Level 140 MMOL/L (136-145) Potassium Level 3.7 MMOL/L (3.5-5.1) Chloride Level 100 MMOL/L (98-107) Carbon Dioxide Level 36 MMOL/L (21-32) H Anion Gap 4 mmol/L (5-15) L Blood Urea Nitrogen 27 mg/dL (7-18) H Creatinine 1.3 MG/DL (0.55-1.30) Estimat Glomerular Filtration Rate 51.4 mL/min (>60) Glucose Level 103 MG/DL (74-106) Uric Acid 7.3 MG/DL (2.6-7.2) H Calcium Level 9.0 MG/DL (8.5-10.1) Phosphorus Level 3.8 MG/DL (2.5-4.9) Magnesium Level 2.4 MG/DL (1.8-2.4) Total Bilirubin 0.5 MG/DL (0.2-1.0) Aspartate Amino Transf (AST/SGOT) 19 U/L (15-37) Alanine Aminotransferase (ALT/SGPT) 20 U/L (12-78) Alkaline Phosphatase 67 U/L (46-116) Total Protein 7.8 G/DL (6.4-8.2) Albumin 4.2 G/DL (3.4-5.0) Globulin 3.6 g/dL Albumin/Globulin Ratio 1.2 (1.0-2.7) Current Medications Medications (Trade) Dose Ordered Sig/Della Route PRN Reason Start Time Stop Time Status Last Admin Dose Admin Acetaminophen (Tylenol) 500 mg Q6H PRN ORAL Mild Pain (Pain Scale 1-3) 01/18/21 22:30 02/17/21 22:29 Albuterol/ Ipratropium (Albuterol/ Ipratropium) 3 ml Q6HRT HHN 01/21/21 09:00 01/24/21 08:59 01/21/21 09:20 Allopurinol (allopurinoL) 300 mg DAILY ORAL 01/20/21 11:45 02/19/21 11:44 01/21/21 08:47 Carvedilol (Coreg) 12.5 mg EVERY 12 HOURS ORAL 01/18/21 21:00 02/17/21 20:59 01/20/21 08:47 Ceftriaxone Sodium 1 gm/ Dextrose 55 ml @ 110 mls/hr Q24H IVPB 01/19/21 08:00 01/26/21 07:59 01/21/21 08:47 Clonidine HCl (Catapres Tab) 0.1 mg Q4H PRN ORAL sbp>170 01/18/21 16:15 04/18/21 16:14 Docusate Sodium (Colace) 100 mg THREE TIMES A DAY ORAL 01/19/21 13:00 02/18/21 12:59 01/21/21 08:47 Levothyroxine Sodium (Synthroid) 50 mcg DAILY IV 01/20/21 13:00 02/19/21 12:59 01/21/21 08:47 Lisinopril (ZestriL) 10 mg EVERY 12 HOURS ORAL 01/18/21 21:00 02/17/21 20:59 01/18/21 22:09 Methylprednisolone Sodium Succinate (Solu-MEDROL) 40 mg EVERY 8 HOURS IVP 01/21/21 10:30 04/21/21 10:29 01/21/21 10:30 Pantoprazole (Protonix) 40 mg EVERY 12 HOURS ORAL 01/19/21 21:00 02/18/21 20:59 01/21/21 08:47 Amilcar Rodriguez MD Jan 21, 2021 12:18
--- NOTE | 2021-01-21 13:42 | Nephrology Progress Note ---
Assessment/Plan Problem List: (1) ABIOLA (acute kidney injury) (2) CHF (congestive heart failure) (3) COPD (chronic obstructive pulmonary disease) (4) UTI (urinary tract infection) (5) Obesity (6) Hypothyroidism Assessment Renal failure: Rising serum creatinine multifactorial. Mainly treatment for CHF with lisinopril and Lasix Congestive heart failure History of hypertension History of COPD Obesity, BMI 42.3 Elevated TSH: Hypothyroidism Plan January 21: Labs reviewed. Medication list reviewed. Renal parameters and electrolytes improved. Blood pressure stable. 24-hour urine for total protein pending. Heart rate stable. Remains on Synthroid intravenously January 20: Labs reviewed. Medication list reviewed. Serum creatinine 1.4 unchanged. Continue per consultants. Blood pressure dropped as a result Lasix on hold. Allopurinol added. Continue to monitor renal parameters.Discussed with Dr Garrido . Parameters for Coreg and Lisinopril, 24-hour urine collection for total protein ordered. Will change Synthroid to IV for the next few days. Continue to optimize pulmonary and cardiac status Monitor renal parameters electrolytes Start Synthroid Stool softener and gastric support Per orders Subjective ROS Limited/Unobtainable: No Constitutional: Reports: malaise Objective Objective Last 24 Hour Vital Signs Date Time Temp Pulse Resp B/P (MAP) Pulse Ox O2 Delivery O2 Flow Rate FiO2 01/21/21 12:00 2.0 01/21/21 12:00 70 01/21/21 12:00 Nasal Cannula 2.0 01/21/21 12:00 97.5 70 21 105/68 (80) 92 01/21/21 09:30 70 18 97 Nasal Cannula 2.0 28 01/21/21 09:30 70 18 96 Nasal Cannula 2.0 28 72 18 92 01/21/21 09:00 63 113/68 01/21/21 09:00 113/68 01/21/21 08:00 79 01/21/21 08:00 97.2 63 20 113/68 (83) 94 01/21/21 08:00 Nasal Cannula 2.0 01/21/21 08:00 2.0 01/21/21 07:00 92 Nasal Cannula 3.0 32 01/21/21 04:00 3.0 01/21/21 04:00 97.3 70 20 109/69 (82) 94 01/21/21 04:00 82 01/21/21 04:00 Nasal Cannula 3.0 01/21/21 00:08 Nasal Cannula 3.0 01/21/21 00:00 97.1 68 19 105/67 (80) 95 01/21/21 00:00 80 01/20/21 20:38 66 96/59 01/20/21 20:38 96/59 01/20/21 20:19 95 Nasal Cannula 3.0 32 01/20/21 20:00 3.0 01/20/21 20:00 Nasal Cannula 3.0 01/20/21 20:00 66 01/20/21 20:00 97.2 70 20 96/59 (71) 95 01/20/21 16:00 97.2 67 20 105/68 (80) 99 01/20/21 16:00 1.0 01/20/21 16:00 Nasal Cannula 1.0 01/20/21 16:00 73 Intake and Output 01/20/21 01/21/21 19:00 07:00 Intake Total 755 ml 150 ml Balance 755 ml 150 ml Intake Oral 700 ml 150 ml IV Total 55 ml # Voids 6 2 Current Medications Medications (Trade) Dose Ordered Sig/Della Route PRN Reason Start Time Stop Time Status Last Admin Dose Admin Acetaminophen (Tylenol) 500 mg Q6H PRN ORAL Mild Pain (Pain Scale 1-3) 01/18/21 22:30 02/17/21 22:29 Albuterol/ Ipratropium (Albuterol/ Ipratropium) 3 ml Q6HRT HHN 01/21/21 09:00 01/24/21 08:59 01/21/21 09:20 Allopurinol (allopurinoL) 300 mg DAILY ORAL 01/20/21 11:45 02/19/21 11:44 01/21/21 08:47 Carvedilol (Coreg) 12.5 mg EVERY 12 HOURS ORAL 01/18/21 21:00 02/17/21 20:59 01/20/21 08:47 Ceftriaxone Sodium 1 gm/ Dextrose 55 ml @ 110 mls/hr Q24H IVPB 01/19/21 08:00 01/26/21 07:59 01/21/21 08:47 Clonidine HCl (Catapres Tab) 0.1 mg Q4H PRN ORAL sbp>170 01/18/21 16:15 04/18/21 16:14 Docusate Sodium (Colace) 100 mg THREE TIMES A DAY ORAL 01/19/21 13:00 02/18/21 12:59 01/21/21 08:47 Levothyroxine Sodium (Synthroid) 50 mcg DAILY IV 01/20/21 13:00 02/19/21 12:59 01/21/21 08:47 Lisinopril (ZestriL) 10 mg EVERY 12 HOURS ORAL 01/18/21 21:00 02/17/21 20:59 01/18/21 22:09 Methylprednisolone Sodium Succinate (Solu-MEDROL) 40 mg EVERY 8 HOURS IVP 01/21/21 10:30 04/21/21 10:29 01/21/21 10:30 Pantoprazole (Protonix) 40 mg EVERY 12 HOURS ORAL 01/19/21 21:00 02/18/21 20:59 01/21/21 08:47 Laboratory Tests 01/21/21 03:20: Sodium Level 140, Potassium Level 3.7, Chloride Level 100, Carbon Dioxide Level 36H, Anion Gap 4L, Blood Urea Nitrogen 27H, Creatinine 1.3, Estimat Glomerular Filtration Rate 51.4, Glucose Level 103, Uric Acid 7.3H, Calcium Level 9.0, Phosphorus Level 3.8, Magnesium Level 2.4, Total Bilirubin 0.5, Aspartate Amino Transf (AST/SGOT) 19, Alanine Aminotransferase (ALT/SGPT) 20, Alkaline Phosphatase 67, Total Protein 7.8, Albumin 4.2, Globulin 3.6, Albumin/Globulin Ratio 1.2 Height (Feet): 5 Height (Inches): 10.00 Weight (Pounds): 295 General Appearance: no apparent distress Cardiovascular: normal rate Respiratory/Chest: decreased breath sounds Abdomen: distended Adilson Yang MD Jan 21, 2021 13:42
[2021-01-21 16:00] VITALS: BP 125/79
--- NOTE | 2021-01-21 19:00 | NUR ---
NURSE NOTES: Received patient from LATONIA Rizvi. patient is sitting at the end of the bed comfortably. AO x4. sinus rhythm on the monitor. on nasal cannula 2L, tolerating well. 24hr urine collection noted will end @1999. bed to lowest position and locked. call light within easy reach. side rails up x2. will continue plan of care.
--- NOTE | 2021-01-21 19:15 | NUR ---
NURSE HAND-OFF REPORT: Important Events on Shift: trial on Room air, patient unable to tolerated, O2 sat 80%, on 2L 92% Patient Status: stable Diet: Cardiac Pending Orders: na Pending Results/Labs: 24 HR urine collection Pending MD notification:na Latest Vital Signs: Temperature 98.5 , Pulse 70 , B/P 125 /79 , Respiratory Rate 21 , O2 SAT 93 , Room Air, O2 Flow Rate 2.0 . Vital Sign Comment: stable EKG Rhythm: Sinus Rhythm Rhythm change?: N MD Notified?: - MD Response: Latest Back Fall Score: 35 Fall Risk: Medium Risk Safety Measures: Call light Within Reach, Bed Alarm Zone 2, Side Rails Side Rails x2, Bed position Low and Locked. Fall Precautions: Patient Fall Education Report given to LATONIA Rubio.
[2021-01-21 20:00] VITALS: BP 114/75
--- NOTE | 2021-01-21 20:30 | NUR ---
NURSE NOTES: 24hr urine collection complete. specimen sent down to lab.
[2021-01-22] VITALS: BP 105/71
--- NOTE | 2021-01-22 00:34 | NUR ---
NURSE NOTES: patient is sleeping in bed without any acute distress noted. vital signs stable.
[2021-01-22] MEDS: Albuterol/Ipratropium 3ml neb HHN SCH ×4 (01:21→19:15)
--- NOTE | 2021-01-22 03:26 | NUR ---
NURSE NOTES: patient remains asleep without any acute distress noted.
[2021-01-22 04:00] VITALS: BP 122/79
[2021-01-22] MEDS: Solu-MEDROL 40mg Inj IVP SCH ×3 (05:29→21:01)
--- NOTE | 2021-01-22 07:19 | NUR ---
NURSE NOTES: Received report RN Ramiro patient awake conversant ,on 2 L nasal cannula,with slight SOB at rest,not in distress,call light at reach,provided commode,instructed to keep O2 at all times,verbalize understanding
--- NOTE | 2021-01-22 07:20 | NUR ---
NURSE HAND-OFF REPORT: Important Events on Shift: on NC 2L Patient Status: full code Diet: cardiac Pending Orders: [] Pending Results/Labs:[] Pending MD notification:[] Latest Vital Signs: Temperature 97.3 , Pulse 85 , B/P 122 /79 , Respiratory Rate 20 , O2 SAT 90 , Room Air, O2 Flow Rate 2.0 . Vital Sign Comment: stable EKG Rhythm: Sinus Rhythm Rhythm change?: N MD Notified?: - MD Response: Latest Back Fall Score: 35 Fall Risk: Medium Risk Safety Measures: Call light Within Reach, Bed Alarm Zone 2, Side Rails Side Rails x2, Bed position Low and Locked. Fall Precautions: Patient Fall Education Report given to LATONIA Milton.
[2021-01-22 08:00] VITALS: BP 124/79
[2021-01-22] MEDS: cefTRIAXone 1 GM in D5W 55 ML IVPB SCH (08:32)
[2021-01-22] MEDS: Docusate 100mg cap ORAL SCH ×3 (08:33→17:36)
[2021-01-22] MEDS: Carvedilol 12.5mg tab ORAL SCH ×2 (08:33→21:01)
[2021-01-22] MEDS: Lisinopril 10mg tab ORAL SCH ×2 (09:00→22:35)
--- NOTE | 2021-01-22 09:00 | NUR ---
PT NOTE Per Geoff BACH, cancel PT evaluation order for now due to patient desaturation. Geoff BACH will re-order PT evaluation when patient more medically stable. Karine LINCOLN notified.
--- NOTE | 2021-01-22 10:49 | Pulmonology Progress Note ---
Subjective ROS Limited/Unobtainable: No Interval Events: hypotension -> now off lasix Constitutional: Reports: no symptoms HEENT: Repors: no symptoms Respiratory: Reports: shortness of breath Cardiovascular: Reports: no symptoms Gastrointestinal/Abdominal: Reports: no symptoms Allergies: Coded Allergies: No Known Allergies (Verified Allergy, Mild, 03/23/10) Objective Last 24 Hour Vital Signs Date Time Temp Pulse Resp B/P (MAP) Pulse Ox O2 Delivery O2 Flow Rate FiO2 01/22/21 08:33 79 124/79 01/22/21 08:00 2.0 01/22/21 08:00 96.9 79 20 124/79 (94) 96 01/22/21 04:00 2.0 01/22/21 04:00 97.3 85 20 122/79 (93) 90 01/22/21 04:00 87 01/22/21 04:00 Nasal Cannula 2.0 01/22/21 01:20 76 18 96 Nasal Cannula 2.0 28 72 18 92 01/22/21 00:00 97.3 75 22 105/71 (82) 91 01/22/21 00:00 72 01/22/21 00:00 Nasal Cannula 2.0 01/21/21 20:00 Nasal Cannula 2.0 01/21/21 20:00 2.0 01/21/21 20:00 98.4 75 21 114/75 (88) 92 01/21/21 20:00 66 01/21/21 19:05 78 18 96 Nasal Cannula 2.0 28 74 18 93 01/21/21 19:04 93 Nasal Cannula 2.0 28 01/21/21 16:00 Nasal Cannula 2.0 01/21/21 16:00 70 01/21/21 16:00 2.0 01/21/21 16:00 98.5 75 21 125/79 (94) 92 01/21/21 14:06 75 18 94 Nasal Cannula 2.0 28 70 18 93 01/21/21 12:00 2.0 01/21/21 12:00 70 01/21/21 12:00 Nasal Cannula 2.0 01/21/21 12:00 97.5 70 21 105/68 (80) 92 Intake and Output 01/21/21 01/22/21 19:00 07:00 Intake Total 355 ml 250 ml Balance 355 ml 250 ml Intake Oral 300 ml 250 ml IV Total 55 ml # Voids 3 3 General Appearance: no acute distress HEENT: atraumatic Respiratory: decreased breath sounds Cardiovascular: normal rate, regular rhythm Abdomen: soft, non tender Musculoskeletal: other - LE edema Laboratory Tests 01/21/21 20:00: Urine Collection Time 24, Urine Total Volume 1500, Urine Total Protein mg/dL 42, Urine Total Protein 24 Hour 41.9 Current Medications Medications (Trade) Dose Ordered Sig/Della Route PRN Reason Start Time Stop Time Status Last Admin Dose Admin Acetaminophen (Tylenol) 500 mg Q6H PRN ORAL Mild Pain (Pain Scale 1-3) 01/18/21 22:30 02/17/21 22:29 Albuterol/ Ipratropium (Albuterol/ Ipratropium) 3 ml Q6HRT HHN 01/21/21 09:00 01/24/21 08:59 01/22/21 07:54 Allopurinol (allopurinoL) 300 mg DAILY ORAL 01/20/21 11:45 02/19/21 11:44 01/22/21 08:35 Carvedilol (Coreg) 12.5 mg EVERY 12 HOURS ORAL 01/18/21 21:00 02/17/21 20:59 01/22/21 08:33 Ceftriaxone Sodium 1 gm/ Dextrose 55 ml @ 110 mls/hr Q24H IVPB 01/19/21 08:00 01/26/21 07:59 01/22/21 08:32 Clonidine HCl (Catapres Tab) 0.1 mg Q4H PRN ORAL sbp>170 01/18/21 16:15 04/18/21 16:14 Docusate Sodium (Colace) 100 mg THREE TIMES A DAY ORAL 01/19/21 13:00 02/18/21 12:59 01/22/21 08:33 Levothyroxine Sodium (Synthroid) 50 mcg DAILY IV 01/20/21 13:00 02/19/21 12:59 01/22/21 10:34 Lisinopril (ZestriL) 10 mg EVERY 12 HOURS ORAL 01/18/21 21:00 02/17/21 20:59 01/18/21 22:09 Methylprednisolone Sodium Succinate (Solu-MEDROL) 40 mg EVERY 8 HOURS IVP 01/21/21 10:30 04/21/21 10:29 01/22/21 05:29 Pantoprazole (Protonix) 40 mg EVERY 12 HOURS ORAL 01/19/21 21:00 02/18/21 20:59 01/22/21 08:35 Assessment/Plan Assessment/Plan 1. CHF exacerbation with elevated BNP -Cardio following -2D Echo: EF 60-65% - on Lasix, lisinopril, Coreg -> now off lasix given hypotension 2. undiagnosed COPD exacerbation -Patient reports extensive history of smoking, over 30 years -Patient education provided on smoking cessation -Patient denies use of home oxygen -We will continue breathing treatment - Continue supplemental oxygen -> pt desaturated to 81% on room air yesterday 3. Respiratory distress, likely secondary to #1 and #2 - Desaturated to 81% on room air this AM; continue supplemental oxygen - will start Solu-Medrol 40 mg Q8hr 4. bilateral lower extremity edema -Negative for DVT on V/D US -SCD and ambulation for DVT prophylaxis -Continue Lasix -> now off Lasix given hypotension 5. Hypothyroidism -On levothyroxine 6. Pulmonary congestion - on Lasix -> now off lasix given hypotension - supplemental oxygen as needed 7. hypotension, likely secondary to diuresis - s/p NS bolus - now off Lasix 8. Nicotine dependence - Pt education on smoking cessation We will consult caser in for hospital bed and home oxygen. The care for this patient was discussed with my supervising physician. Time spent for this case was approximately 31 minutes. Geoff Scott Jan 22, 2021 10:48
--- NOTE | 2021-01-22 10:57 | Nephrology Progress Note ---
Assessment/Plan Problem List: (1) ABIOLA (acute kidney injury) (2) CHF (congestive heart failure) (3) COPD (chronic obstructive pulmonary disease) (4) UTI (urinary tract infection) (5) Obesity (6) Hypothyroidism Assessment Renal failure: Rising serum creatinine multifactorial. Mainly treatment for CHF with lisinopril and Lasix Congestive heart failure History of hypertension History of COPD Obesity, BMI 42.3 Elevated TSH: Hypothyroidism Plan January 22: No labs drawn today. Patient clinically stable. Medication list reviewed. Blood pressure stable. Will check lab tomorrow. January 21: Labs reviewed. Medication list reviewed. Renal parameters and electrolytes improved. Blood pressure stable. 24-hour urine for total protein pending. Heart rate stable. Remains on Synthroid intravenously January 20: Labs reviewed. Medication list reviewed. Serum creatinine 1.4 unchanged. Continue per consultants. Blood pressure dropped as a result Lasix on hold. Allopurinol added. Continue to monitor renal parameters.Discussed with Dr Garrido . Parameters for Coreg and Lisinopril, 24-hour urine collection for total protein ordered. Will change Synthroid to IV for the next few days. Continue to optimize pulmonary and cardiac status Monitor renal parameters electrolytes Start Synthroid Stool softener and gastric support Per orders Subjective ROS Limited/Unobtainable: No Constitutional: Reports: malaise Objective Objective Last 24 Hour Vital Signs Date Time Temp Pulse Resp B/P (MAP) Pulse Ox O2 Delivery O2 Flow Rate FiO2 01/22/21 08:33 79 124/79 01/22/21 08:00 2.0 01/22/21 08:00 96.9 79 20 124/79 (94) 96 01/22/21 04:00 2.0 01/22/21 04:00 97.3 85 20 122/79 (93) 90 01/22/21 04:00 87 01/22/21 04:00 Nasal Cannula 2.0 01/22/21 01:20 76 18 96 Nasal Cannula 2.0 28 72 18 92 01/22/21 00:00 97.3 75 22 105/71 (82) 91 01/22/21 00:00 72 01/22/21 00:00 Nasal Cannula 2.0 01/21/21 20:00 Nasal Cannula 2.0 01/21/21 20:00 2.0 01/21/21 20:00 98.4 75 21 114/75 (88) 92 01/21/21 20:00 66 01/21/21 19:05 78 18 96 Nasal Cannula 2.0 28 74 18 93 01/21/21 19:04 93 Nasal Cannula 2.0 28 01/21/21 16:00 Nasal Cannula 2.0 01/21/21 16:00 70 01/21/21 16:00 2.0 01/21/21 16:00 98.5 75 21 125/79 (94) 92 01/21/21 14:06 75 18 94 Nasal Cannula 2.0 28 70 18 93 01/21/21 12:00 2.0 01/21/21 12:00 70 01/21/21 12:00 Nasal Cannula 2.0 01/21/21 12:00 97.5 70 21 105/68 (80) 92 Intake and Output 01/21/21 01/22/21 19:00 07:00 Intake Total 355 ml 250 ml Balance 355 ml 250 ml Intake Oral 300 ml 250 ml IV Total 55 ml # Voids 3 3 Current Medications Medications (Trade) Dose Ordered Sig/Della Route PRN Reason Start Time Stop Time Status Last Admin Dose Admin Acetaminophen (Tylenol) 500 mg Q6H PRN ORAL Mild Pain (Pain Scale 1-3) 01/18/21 22:30 02/17/21 22:29 Albuterol/ Ipratropium (Albuterol/ Ipratropium) 3 ml Q6HRT HHN 01/21/21 09:00 01/24/21 08:59 01/22/21 07:54 Allopurinol (allopurinoL) 300 mg DAILY ORAL 01/20/21 11:45 02/19/21 11:44 01/22/21 08:35 Carvedilol (Coreg) 12.5 mg EVERY 12 HOURS ORAL 01/18/21 21:00 02/17/21 20:59 01/22/21 08:33 Ceftriaxone Sodium 1 gm/ Dextrose 55 ml @ 110 mls/hr Q24H IVPB 01/19/21 08:00 01/26/21 07:59 01/22/21 08:32 Clonidine HCl (Catapres Tab) 0.1 mg Q4H PRN ORAL sbp>170 01/18/21 16:15 04/18/21 16:14 Docusate Sodium (Colace) 100 mg THREE TIMES A DAY ORAL 01/19/21 13:00 02/18/21 12:59 01/22/21 08:33 Levothyroxine Sodium (Synthroid) 50 mcg DAILY IV 01/20/21 13:00 02/19/21 12:59 01/22/21 10:34 Lisinopril (ZestriL) 10 mg EVERY 12 HOURS ORAL 01/18/21 21:00 02/17/21 20:59 01/18/21 22:09 Methylprednisolone Sodium Succinate (Solu-MEDROL) 40 mg EVERY 8 HOURS IVP 01/21/21 10:30 04/21/21 10:29 01/22/21 05:29 Pantoprazole (Protonix) 40 mg EVERY 12 HOURS ORAL 01/19/21 21:00 02/18/21 20:59 01/22/21 08:35 Laboratory Tests 01/21/21 20:00: Urine Collection Time 24, Urine Total Volume 1500, Urine Total Protein mg/dL 42, Urine Total Protein 24 Hour 41.9 Height (Feet): 5 Height (Inches): 10.00 Weight (Pounds): 295 General Appearance: no apparent distress Cardiovascular: normal rate Respiratory/Chest: decreased breath sounds Abdomen: soft Adilson Yang MD Jan 22, 2021 10:57
--- NOTE | 2021-01-22 11:20 | Infectious Diseases Prog Note ---
Assessment/Plan Assessment/Plan IMPRESSION: 1. COPD with exacerbation. 2. Hypoxemia. 3. Diastolic CHF. 4. Acute renal failure. 5. Morbid obesity. 6. Hypothyroidism. 7. Nicotine dependence. RECOMMENDATION: Continue with ceftriaxone until tomorrow We will followup the cultures. Subjective ROS Limited/Unobtainable: No Respiratory: Reports: shortness of breath, dry cough Cardiovascular: Reports: no symptoms Gastrointestinal/Abdominal: Reports: no symptoms Allergies: Coded Allergies: No Known Allergies (Verified Allergy, Mild, 03/23/10) Objective Last 24 Hour Vital Signs Date Time Temp Pulse Resp B/P (MAP) Pulse Ox O2 Delivery O2 Flow Rate FiO2 01/22/21 08:33 79 124/79 01/22/21 08:00 2.0 01/22/21 08:00 96.9 79 20 124/79 (94) 96 01/22/21 04:00 2.0 01/22/21 04:00 97.3 85 20 122/79 (93) 90 01/22/21 04:00 87 01/22/21 04:00 Nasal Cannula 2.0 01/22/21 01:20 76 18 96 Nasal Cannula 2.0 28 72 18 92 01/22/21 00:00 97.3 75 22 105/71 (82) 91 01/22/21 00:00 72 01/22/21 00:00 Nasal Cannula 2.0 01/21/21 20:00 Nasal Cannula 2.0 01/21/21 20:00 2.0 01/21/21 20:00 98.4 75 21 114/75 (88) 92 01/21/21 20:00 66 01/21/21 19:05 78 18 96 Nasal Cannula 2.0 28 74 18 93 01/21/21 19:04 93 Nasal Cannula 2.0 28 01/21/21 16:00 Nasal Cannula 2.0 01/21/21 16:00 70 01/21/21 16:00 2.0 01/21/21 16:00 98.5 75 21 125/79 (94) 92 01/21/21 14:06 75 18 94 Nasal Cannula 2.0 28 70 18 93 01/21/21 12:00 2.0 01/21/21 12:00 70 01/21/21 12:00 Nasal Cannula 2.0 01/21/21 12:00 97.5 70 21 105/68 (80) 92 Height (Feet): 5 Height (Inches): 10.00 Weight (Pounds): 295 HEENT: mucous membranes moist Respiratory/Chest: lungs clear Cardiovascular: normal rate Abdomen: soft, non tender Extremities: no edema Neurologic/Psychiatric: alert, oriented x 3, responsive Laboratory Tests Test 01/21/21 20:00 Urine Collection Time 24 HRS Urine Total Volume 1500 ML Urine Total Protein mg/dL 42 mg/dL Urine Total Protein 24 Hour 41.9 mg/24hr (< 150) Current Medications Medications (Trade) Dose Ordered Sig/Della Route PRN Reason Start Time Stop Time Status Last Admin Dose Admin Acetaminophen (Tylenol) 500 mg Q6H PRN ORAL Mild Pain (Pain Scale 1-3) 01/18/21 22:30 02/17/21 22:29 Albuterol/ Ipratropium (Albuterol/ Ipratropium) 3 ml Q6HRT HHN 01/21/21 09:00 01/24/21 08:59 01/22/21 07:54 Allopurinol (allopurinoL) 300 mg DAILY ORAL 01/20/21 11:45 02/19/21 11:44 01/22/21 08:35 Carvedilol (Coreg) 12.5 mg EVERY 12 HOURS ORAL 01/18/21 21:00 02/17/21 20:59 01/22/21 08:33 Ceftriaxone Sodium 1 gm/ Dextrose 55 ml @ 110 mls/hr Q24H IVPB 01/19/21 08:00 01/26/21 07:59 01/22/21 08:32 Clonidine HCl (Catapres Tab) 0.1 mg Q4H PRN ORAL sbp>170 01/18/21 16:15 04/18/21 16:14 Docusate Sodium (Colace) 100 mg THREE TIMES A DAY ORAL 01/19/21 13:00 02/18/21 12:59 01/22/21 08:33 Levothyroxine Sodium (Synthroid) 50 mcg DAILY IV 01/20/21 13:00 02/19/21 12:59 01/22/21 10:34 Lisinopril (ZestriL) 10 mg EVERY 12 HOURS ORAL 01/18/21 21:00 02/17/21 20:59 01/18/21 22:09 Methylprednisolone Sodium Succinate (Solu-MEDROL) 40 mg EVERY 8 HOURS IVP 01/21/21 10:30 04/21/21 10:29 01/22/21 05:29 Pantoprazole (Protonix) 40 mg EVERY 12 HOURS ORAL 01/19/21 21:00 02/18/21 20:59 01/22/21 08:35 Amilcar Rodriguez MD Jan 22, 2021 11:20
[2021-01-22 12:00] VITALS: BP 111/80
--- NOTE | 2021-01-22 13:32 | Cardiac Electrophysiology PN ---
Assessment/Plan Assessment/Plan 1. Bilateral lower extremity edema and shortness of breath. BNP elevated at 439. Lower extremity duplex showed no evidence of DVT. Echo showed Nl ejection fraction 65%. Off Lasix due to low BP 2. History of hypertension. BP better off Lasix. On lisinopril 10 and carvedilol 12.5 po bid 3. History of COPD. 4. Hypothyroidism, now on Synthroid DW RN and Dr. Yang Subjective Subjective Was vince down to 48 and hypotensive in 80s yesterday that got better after 500 cc NS ECho EF 65%. On 2 liter nasal cannula. RN at bedside Objective Last 24 Hour Vital Signs Date Time Temp Pulse Resp B/P (MAP) Pulse Ox O2 Delivery O2 Flow Rate FiO2 01/22/21 12:00 96.8 82 24 111/80 (90) 94 01/22/21 12:00 2.0 01/22/21 11:45 76 01/22/21 09:00 111/80 01/22/21 08:33 79 124/79 01/22/21 08:04 96 Nasal Cannula 2.0 28 01/22/21 08:04 76 18 97 Nasal Cannula 2.0 28 74 18 96 01/22/21 08:00 2.0 01/22/21 08:00 96.9 79 20 124/79 (94) 96 01/22/21 07:34 84 01/22/21 04:00 2.0 01/22/21 04:00 97.3 85 20 122/79 (93) 90 01/22/21 04:00 87 01/22/21 04:00 Nasal Cannula 2.0 01/22/21 01:20 76 18 96 Nasal Cannula 2.0 28 72 18 92 01/22/21 00:00 97.3 75 22 105/71 (82) 91 01/22/21 00:00 72 01/22/21 00:00 Nasal Cannula 2.0 01/21/21 20:00 Nasal Cannula 2.0 01/21/21 20:00 2.0 01/21/21 20:00 98.4 75 21 114/75 (88) 92 01/21/21 20:00 66 01/21/21 19:05 78 18 96 Nasal Cannula 2.0 28 74 18 93 01/21/21 19:04 93 Nasal Cannula 2.0 28 01/21/21 16:00 Nasal Cannula 2.0 01/21/21 16:00 70 01/21/21 16:00 2.0 01/21/21 16:00 98.5 75 21 125/79 (94) 92 01/21/21 14:06 75 18 94 Nasal Cannula 2.0 28 70 18 93 Intake and Output 01/21/21 01/22/21 19:00 07:00 Intake Total 355 ml 250 ml Balance 355 ml 250 ml Intake Oral 300 ml 250 ml IV Total 55 ml # Voids 3 3 Laboratory Tests Test 01/21/21 20:00 Urine Collection Time 24 HRS Urine Total Volume 1500 ML Urine Total Protein mg/dL 42 mg/dL Urine Total Protein 24 Hour 41.9 mg/24hr (< 150) Objective HEAD AND NECK: Shows positive JVD. LUNGS: Decreased breath sounds. CARDIOVASCULAR: Shows regular S1 and S2 with no gallop. ABDOMEN: Soft. EXTREMITIES: 2+ pitting edema. Raffy Garrido MD Jan 22, 2021 13:32
[2021-01-22 16:00] VITALS: BP 117/69
--- NOTE | 2021-01-22 16:38 | NUR ---
NURSE NOTES: Notified Dr. Naylor and Dr. Quinonez patient constipated X 4 days
--- NOTE | 2021-01-22 17:01 | NUR ---
[facility] PH#[phone] FAX# [phone]
--- NOTE | 2021-01-22 19:00 | NUR ---
NURSE HAND-OFF REPORT: Important Events on Shift:SOB constipation Patient Status: Sob at rest Diet: cardiac Pending Orders: none Pending Results/Labs:none Pending MD notification:Dr. Quinonez coming to see patient,aware constipation Latest Vital Signs: Temperature 96.9 , Pulse 71 , B/P 117 /69 , Respiratory Rate 22 , O2 SAT 92 , Room Air, O2 Flow Rate 2.0 . Vital Sign Comment: stable EKG Rhythm: Sinus Rhythm Rhythm change?: N MD Notified?: -Dr. Naylor,Dr. Cristiano SORENSEN Response: Dr. Quinonez coming to see patient Latest Back Fall Score: 35 Fall Risk: Medium Risk Safety Measures: Call light Within Reach, Bed Alarm Zone 2, Side Rails Side Rails x2, Bed position Low and Locked. Fall Precautions: up commode independent Yellow Socks Door Sign Patient Fall Education Yes Report given to .LATONIA CARTER
--- NOTE | 2021-01-22 19:20 | NUR ---
NURSE NOTES: Received patient from LATONIA Milton. patient is awake sitting at the edge of the bed. AO x4. sinus rhythm on the monitor. nasal cannula @ 2L. commode at bedside. bed to lowest position and locked. call light within easy reach. side rails up x2. will continue plan of care.
--- NOTE | 2021-01-22 19:30 | NUR ---
NURSE NOTES: patient has not had a BM x5 days. Dr. Roque came at bedside and assessed patient. ordered sorbitol 60ml once and sorbitol 30ml qhs starting tomorrow. will carry out orders.
--- NOTE | 2021-01-22 19:35 | General Progress Note ---
Subjective ROS Limited/Unobtainable: Yes Allergies: Coded Allergies: No Known Allergies (Verified Allergy, Mild, 03/23/10) Objective Last 24 Hour Vital Signs Date Time Temp Pulse Resp B/P (MAP) Pulse Ox O2 Delivery O2 Flow Rate FiO2 01/22/21 19:29 80 18 95 Nasal Cannula 2.0 28 78 18 93 01/22/21 19:28 93 Nasal Cannula 2.0 28 01/22/21 16:00 84 01/22/21 16:00 96.9 71 22 117/69 (85) 92 01/22/21 16:00 Nasal Cannula 2.0 01/22/21 16:00 2.0 01/22/21 14:00 81 18 95 Nasal Cannula 2.0 28 84 18 92 01/22/21 12:00 Nasal Cannula 2.0 01/22/21 12:00 96.8 82 24 111/80 (90) 94 01/22/21 12:00 2.0 01/22/21 11:45 76 01/22/21 09:00 111/80 01/22/21 08:33 79 124/79 01/22/21 08:04 96 Nasal Cannula 2.0 28 01/22/21 08:04 76 18 97 Nasal Cannula 2.0 28 74 18 96 01/22/21 08:00 2.0 01/22/21 08:00 96.9 79 20 124/79 (94) 96 01/22/21 08:00 Nasal Cannula 2.0 01/22/21 07:34 84 01/22/21 04:00 2.0 01/22/21 04:00 97.3 85 20 122/79 (93) 90 01/22/21 04:00 87 01/22/21 04:00 Nasal Cannula 2.0 01/22/21 01:20 76 18 96 Nasal Cannula 2.0 28 72 18 92 01/22/21 00:00 97.3 75 22 105/71 (82) 91 01/22/21 00:00 72 01/22/21 00:00 Nasal Cannula 2.0 01/21/21 20:00 Nasal Cannula 2.0 01/21/21 20:00 2.0 01/21/21 20:00 98.4 75 21 114/75 (88) 92 01/21/21 20:00 66 Intake and Output 01/21/21 01/22/21 19:00 07:00 Intake Total 355 ml 250 ml Balance 355 ml 250 ml Intake Oral 300 ml 250 ml IV Total 55 ml # Voids 3 3 Laboratory Tests 01/21/21 20:00: Urine Collection Time 24, Urine Total Volume 1500, Urine Total Protein mg/dL 42, Urine Total Protein 24 Hour 41.9 Height (Feet): 5 Height (Inches): 10.00 Weight (Pounds): 295 Assessment/Plan Problem List: (1) Cardiomegaly ICD Codes: I51.7 - Cardiomegaly SNOMED: 8828567 (2) COPD (chronic obstructive pulmonary disease) ICD Codes: J44.9 - Chronic obstructive pulmonary disease, unspecified SNOMED: 81908969 (3) CHF (congestive heart failure) ICD Codes: I50.9 - Heart failure, unspecified SNOMED: 66270967 (4) UTI (urinary tract infection) ICD Codes: N39.0 - Urinary tract infection, site not specified SNOMED: 57993940 (5) ABIOLA (acute kidney injury) ICD Codes: N17.9 - Acute kidney failure, unspecified SNOMED: 8897860, 83174018 (6) Obesity ICD Codes: E66.9 - Obesity, unspecified SNOMED: 134770324, 950371720 Status: progressing Assessment/Plan: uti chf resp insuff copd is improving afebrile abx per id no change Ragini Naylor MD Jan 22, 2021 19:35
[2021-01-22] MEDS ORDERED: Sorbitol Solution UD 30ml ORAL SCH (19:45)
[2021-01-22 20:00] VITALS: BP 112/55
--- NOTE | 2021-01-22 21:43 | General Progress Note ---
Subjective Allergies: Coded Allergies: No Known Allergies (Verified Allergy, Mild, 03/23/10) Objective Last 24 Hour Vital Signs Date Time Temp Pulse Resp B/P (MAP) Pulse Ox O2 Delivery O2 Flow Rate FiO2 01/22/21 21:01 77 112/55 01/22/21 20:00 Nasal Cannula 2.0 01/22/21 20:00 97.0 78 22 112/55 (74) 90 01/22/21 20:00 2.0 01/22/21 20:00 77 01/22/21 19:29 80 18 95 Nasal Cannula 2.0 28 78 18 93 01/22/21 19:28 93 Nasal Cannula 2.0 28 01/22/21 16:00 84 01/22/21 16:00 96.9 71 22 117/69 (85) 92 01/22/21 16:00 Nasal Cannula 2.0 01/22/21 16:00 2.0 01/22/21 14:00 81 18 95 Nasal Cannula 2.0 28 84 18 92 01/22/21 12:00 Nasal Cannula 2.0 01/22/21 12:00 96.8 82 24 111/80 (90) 94 01/22/21 12:00 2.0 01/22/21 11:45 76 01/22/21 09:00 111/80 01/22/21 08:33 79 124/79 01/22/21 08:04 96 Nasal Cannula 2.0 28 01/22/21 08:04 76 18 97 Nasal Cannula 2.0 28 74 18 96 01/22/21 08:00 2.0 01/22/21 08:00 96.9 79 20 124/79 (94) 96 01/22/21 08:00 Nasal Cannula 2.0 01/22/21 07:34 84 01/22/21 04:00 2.0 01/22/21 04:00 97.3 85 20 122/79 (93) 90 01/22/21 04:00 87 01/22/21 04:00 Nasal Cannula 2.0 01/22/21 01:20 76 18 96 Nasal Cannula 2.0 28 72 18 92 01/22/21 00:00 97.3 75 22 105/71 (82) 91 01/22/21 00:00 72 01/22/21 00:00 Nasal Cannula 2.0 Intake and Output 01/21/21 01/22/21 19:00 07:00 Intake Total 355 ml 250 ml Balance 355 ml 250 ml Intake Oral 300 ml 250 ml IV Total 55 ml # Voids 3 3 Height (Feet): 5 Height (Inches): 10.00 Weight (Pounds): 295 Assessment/Plan Status: progressing Assessment/Plan: Assessment - chronic constipation, now worse as inpatient - HTN - Obesity - hypothyroid - hyperlipidemia - abd wall hernia Recommendations - Sorbitol - po as tolerated - OOB - outpatient colonoscopy Thank you MD Cristiano Williamson Payman MD Jan 22, 2021 21:43
[2021-01-23] VITALS: BP 96/68
--- NOTE | 2021-01-23 00:23 | NUR ---
NURSE NOTES: patient had a large, soft BM at bedside commode. BP was 96/68 after BM. will reassess.
[2021-01-23] MEDS: Albuterol/Ipratropium 3ml neb HHN SCH ×4 (01:07→20:13)
--- NOTE | 2021-01-23 01:09 | NUR ---
NURSE NOTES: patient's BP 121/69.
--- NOTE | 2021-01-23 03:59 | Consultation ---
DATE OF CONSULTATION: 01/22/2021 GASTROENTEROLOGY CONSULTATION CONSULTING PHYSICIAN: Odilon Quinonez MD CHIEF COMPLAINT: I was asked to see this patient by Dr. Ragini Naylor today for evaluation of constipation. HISTORY OF PRESENT ILLNESS: Patient is a 55-year-old woman with morbid obesity who comes into the hospital due to lower extremity edema, which was found progressively worsened. She also was found to have some difficulty breathing. She came to the hospital and was found to be suffering from congestive heart failure exacerbation as well as COPD exacerbation. She received some steroids in the emergency room and was admitted. Patient states that for the past 4 days, she has not had any bowel movement. She states she normally does not go to bathroom everyday. Bowel movement at home is every other day at baseline, but now she has not gone to the bathroom 4-5 days. She takes stool softeners twice a day. She has a history of umbilical hernia surgery. PAST MEDICAL HISTORY: History of hypertension, constipation, hypothyroidism, hyperlipidemia, and abdominal hernia. PAST SURGICAL HISTORY: Status post neck surgery and hernia surgery. ALLERGIES: None. MEDICATIONS: Noted. FAMILY HISTORY: Noncontributory. SOCIAL HISTORY: Patient does have a smoking history but she does not drink alcohol. REVIEW OF SYSTEMS: The patient has not had an endoscopy or colonoscopy. PHYSICAL EXAMINATION: GENERAL: An obese woman, seen in her room. HEENT: Normocephalic and atraumatic. Sclerae anicteric. Oropharynx clear. NECK: Supple. CHEST: Clear to auscultation. CARDIOVASCULAR: Revealed regular rate. ABDOMEN: Obese, but soft and without tenderness. There is no obvious organomegaly although examination was difficult due to patient's central obesity. EXTREMITIES: Revealed no edema. LABORATORY DATA: Noted. ASSESSMENT: This patient presents with chronic degree of constipation, which has not worsened as an inpatient due to sedentary state. Patient will need to have initial laxatives to induce bowel movements and then maintenance laxative. Patient was strongly advised to have a colonoscopy as an outpatient once she has recovered from acute illness. RECOMMENDATIONS: Per above discussion and per orders written in the chart. Thank you for asking me to participate in the care of this patient. Odilon Quinonez M.D. DR: ARGENIS JOB#: [id number] CC: COLEMAN
[2021-01-23 04:00] VITALS: BP 128/95
--- NOTE | 2021-01-23 04:38 | NUR ---
NURSE NOTES: patient remains asleep without any acute distress noted.
[2021-01-23] MEDS: Solu-MEDROL 40mg Inj IVP SCH ×2 (05:04→21:09)
[2021-01-23 06:25] LABS: ALANINE AMINOTRANSFERASE 52 U/L (12-78); ALBUMIN 4.1 G/DL (3.4-5.0); ALBUMIN/GLOBULIN RATIO 1.1 (1.0-2.7); ALKALINE PHOSPHATASE 68 U/L (46-116); ANION GAP 8 mmol/L (5-15); ASPARTATE AMINO TRANSFERASE 50 U/L (15-37); BILIRUBIN,TOTAL 0.3 MG/DL (0.2-1.0); BLOOD UREA NITROGEN 28 mg/dL (7-18); CALCIUM 9.8 MG/DL (8.5-10.1); CARBON DIOXIDE 31 MMOL/L (21-32); CHLORIDE 102 MMOL/L (98-107); CREATININE 1.1 MG/DL (0.55-1.30); PHOSPHORUS 4.1 MG/DL (2.5-4.9); POTASSIUM 4.3 MMOL/L (3.5-5.1); SODIUM 140 MMOL/L (136-145)
--- NOTE | 2021-01-23 07:19 | NUR ---
NURSE HAND-OFF REPORT: Important Events on Shift: patient had a large BM after constipated for x5 days Patient Status: full code Diet: cardiac Pending Orders: [] Pending Results/Labs:[] Pending MD notification:[] Latest Vital Signs: Temperature 97.5 , Pulse 83 , B/P 128 /95 , Respiratory Rate 23 , O2 SAT 90 , Room Air, O2 Flow Rate 2.0 . Vital Sign Comment: stable EKG Rhythm: Sinus Rhythm Rhythm change?: N MD Notified?: - MD Response: Latest Back Fall Score: 35 Fall Risk: Medium Risk Safety Measures: Call light Within Reach, Bed Alarm Zone 2, Side Rails Side Rails x2, Bed position Low and Locked. Fall Precautions: Yellow Socks Door Sign Patient Fall Education Report given to LATONIA Pierre.
[2021-01-23 08:00] VITALS: BP 108/78
[2021-01-23] MEDS: Carvedilol 12.5mg tab ORAL SCH ×2 (08:54→21:10)
[2021-01-23] MEDS: cefTRIAXone 1 GM in D5W 55 ML IVPB SCH (08:54)
[2021-01-23] MEDS: Docusate 100mg cap ORAL SCH ×3 (08:54→17:18)
[2021-01-23] MEDS: Lisinopril 10mg tab ORAL SCH (08:55)
--- NOTE | 2021-01-23 09:28 | NUR ---
NURSE NOTES: Received patient report from LATONIA Rubio. Patient is AO x4 awake and able to make needs known. Patient shows no signs of distress or pain at the time. Patient is on 2L nasal canula and shows no signs of respiratory distress. IV is intact and patent. There are no signs of erythema, infiltration, or bleeding. Bed is in the lowest position, call light is within reach, side rails up x3. Will continue to monitor.
[2021-01-23] MEDS ORDERED: Albuterol/Ipratropium 3ml neb HHN PRN (10:00)
--- NOTE | 2021-01-23 10:31 | Infectious Diseases Prog Note ---
Assessment/Plan Assessment/Plan IMPRESSION: 1. COPD with exacerbation. 2. Hypoxemia. 3. Diastolic CHF. 4. Acute renal failure. 5. Morbid obesity. 6. Hypothyroidism. 7. Nicotine dependence. RECOMMENDATION: Discontinue with ceftriaxone Consider tapering of steroids Subjective ROS Limited/Unobtainable: No Constitutional: Reports: no symptoms Respiratory: Reports: shortness of breath, dry cough Cardiovascular: Reports: no symptoms Gastrointestinal/Abdominal: Reports: no symptoms Allergies: Coded Allergies: No Known Allergies (Verified Allergy, Mild, 03/23/10) Objective Last 24 Hour Vital Signs Date Time Temp Pulse Resp B/P (MAP) Pulse Ox O2 Delivery O2 Flow Rate FiO2 01/23/21 08:55 108/78 01/23/21 08:54 62 108/78 01/23/21 08:08 80 18 95 Nasal Cannula 2.0 78 18 90 01/23/21 08:07 98 Nasal Cannula 2.0 28 01/23/21 08:00 97.0 62 20 108/78 (88) 92 01/23/21 07:54 82 01/23/21 04:00 2.0 01/23/21 04:00 72 01/23/21 04:00 97.5 83 23 128/95 (106) 90 01/23/21 04:00 Nasal Cannula 2.0 01/23/21 01:07 76 18 94 Nasal Cannula 2.0 74 18 88 01/23/21 00:00 Nasal Cannula 2.0 01/23/21 00:00 97.5 78 22 96/68 (77) 90 01/23/21 00:00 Nasal Cannula 2.0 01/23/21 00:00 62 01/22/21 22:35 112/55 01/22/21 21:01 77 112/55 01/22/21 20:00 Nasal Cannula 2.0 01/22/21 20:00 97.0 78 22 112/55 (74) 90 01/22/21 20:00 2.0 01/22/21 20:00 77 01/22/21 19:29 80 18 95 Nasal Cannula 2.0 28 78 18 93 01/22/21 19:28 93 Nasal Cannula 2.0 28 01/22/21 16:00 84 01/22/21 16:00 96.9 71 22 117/69 (85) 92 01/22/21 16:00 Nasal Cannula 2.0 01/22/21 16:00 2.0 01/22/21 14:00 81 18 95 Nasal Cannula 2.0 28 84 18 92 01/22/21 12:00 Nasal Cannula 2.0 01/22/21 12:00 96.8 82 24 111/80 (90) 94 01/22/21 12:00 2.0 01/22/21 11:45 76 Height (Feet): 5 Height (Inches): 10.00 Weight (Pounds): 295 HEENT: mucous membranes moist Respiratory/Chest: decreased breath sounds Cardiovascular: normal rate Abdomen: soft, non tender Extremities: other - decreased edema Neurologic/Psychiatric: alert, oriented x 3, responsive Laboratory Tests Test 01/23/21 03:30 Sodium Level 140 MMOL/L (136-145) Potassium Level 4.3 MMOL/L (3.5-5.1) Chloride Level 102 MMOL/L (98-107) Carbon Dioxide Level 31 MMOL/L (21-32) Anion Gap 8 mmol/L (5-15) Blood Urea Nitrogen 28 mg/dL (7-18) H Creatinine 1.1 MG/DL (0.55-1.30) Estimat Glomerular Filtration Rate > 60 mL/min (>60) Glucose Level 126 MG/DL (74-106) H Calcium Level 9.8 MG/DL (8.5-10.1) Phosphorus Level 4.1 MG/DL (2.5-4.9) Magnesium Level 2.9 MG/DL (1.8-2.4) H Total Bilirubin 0.3 MG/DL (0.2-1.0) Aspartate Amino Transf (AST/SGOT) 50 U/L (15-37) H Alanine Aminotransferase (ALT/SGPT) 52 U/L (12-78) Alkaline Phosphatase 68 U/L (46-116) C-Reactive Protein, Quantitative 1.5 mg/dL (0.00-0.90) H Pro-B-Type Natriuretic Peptide 3869 pg/mL (0-125) H Total Protein 7.9 G/DL (6.4-8.2) Albumin 4.1 G/DL (3.4-5.0) Globulin 3.8 g/dL Albumin/Globulin Ratio 1.1 (1.0-2.7) Current Medications Medications (Trade) Dose Ordered Sig/Della Route PRN Reason Start Time Stop Time Status Last Admin Dose Admin Acetaminophen (Tylenol) 500 mg Q6H PRN ORAL Mild Pain (Pain Scale 1-3) 01/18/21 22:30 02/17/21 22:29 Albuterol/ Ipratropium (Albuterol/ Ipratropium) 3 ml Q4H PRN HHN Shortness of Breath 01/23/21 10:00 01/28/21 09:59 Albuterol/ Ipratropium (Albuterol/ Ipratropium) 3 ml Q6HRT HHN 01/21/21 09:00 01/24/21 08:59 01/23/21 08:06 Allopurinol (allopurinoL) 300 mg DAILY ORAL 01/20/21 11:45 02/19/21 11:44 01/23/21 08:54 Carvedilol (Coreg) 12.5 mg EVERY 12 HOURS ORAL 01/18/21 21:00 02/17/21 20:59 01/23/21 08:54 Ceftriaxone Sodium 1 gm/ Dextrose 55 ml @ 110 mls/hr Q24H IVPB 01/19/21 08:00 01/26/21 07:59 01/23/21 08:54 Clonidine HCl (Catapres Tab) 0.1 mg Q4H PRN ORAL sbp>170 01/18/21 16:15 04/18/21 16:14 Docusate Sodium (Colace) 100 mg THREE TIMES A DAY ORAL 01/19/21 13:00 02/18/21 12:59 01/23/21 08:54 Levothyroxine Sodium (Synthroid) 50 mcg DAILY ORAL 01/23/21 09:00 02/22/21 08:59 01/23/21 08:55 Methylprednisolone Sodium Succinate (Solu-MEDROL) 40 mg EVERY 8 HOURS IVP 01/21/21 10:30 04/21/21 10:29 01/23/21 05:04 Pantoprazole (Protonix) 40 mg EVERY 12 HOURS ORAL 01/19/21 21:00 02/18/21 20:59 01/23/21 08:55 Sorbitol (sorbitoL) 30 ml BEDTIME ORAL 01/23/21 21:00 02/22/21 20:59 Amilcar Rodriguez MD Jan 23, 2021 10:30
--- NOTE | 2021-01-23 10:42 | Cardiac Electrophysiology PN ---
Assessment/Plan Assessment/Plan 1. Bilateral lower extremity edema and shortness of breath. BNP elevated at 439. Lower extremity duplex showed no evidence of DVT. Echo showed Nl ejection fraction 65%. Off Lasix due to low BP 2. History of hypertension. Now off Lasix. DC lisinopril 10 and continue carvedilol 12.5 po bid 3. History of COPD. 4. Hypothyroidism, now on Synthroid DW RN and Dr. Yang Subjective Subjective Did not get Lisinopril as BP was in 90s again. ECho EF 65%. On 2 liter nasal cannula. RN at bedside Objective Last 24 Hour Vital Signs Date Time Temp Pulse Resp B/P (MAP) Pulse Ox O2 Delivery O2 Flow Rate FiO2 01/23/21 08:55 108/78 01/23/21 08:54 62 108/78 01/23/21 08:08 80 18 95 Nasal Cannula 2.0 28 78 18 90 01/23/21 08:07 98 Nasal Cannula 2.0 28 01/23/21 08:00 97.0 62 20 108/78 (88) 92 01/23/21 07:54 82 01/23/21 04:00 2.0 01/23/21 04:00 72 01/23/21 04:00 97.5 83 23 128/95 (106) 90 01/23/21 04:00 Nasal Cannula 2.0 01/23/21 01:07 76 18 94 Nasal Cannula 2.0 28 74 18 88 01/23/21 00:00 Nasal Cannula 2.0 01/23/21 00:00 97.5 78 22 96/68 (77) 90 01/23/21 00:00 Nasal Cannula 2.0 01/23/21 00:00 62 01/22/21 22:35 112/55 01/22/21 21:01 77 112/55 01/22/21 20:00 Nasal Cannula 2.0 01/22/21 20:00 97.0 78 22 112/55 (74) 90 01/22/21 20:00 2.0 01/22/21 20:00 77 01/22/21 19:29 80 18 95 Nasal Cannula 2.0 28 78 18 93 01/22/21 19:28 93 Nasal Cannula 2.0 28 01/22/21 16:00 84 01/22/21 16:00 96.9 71 22 117/69 (85) 92 01/22/21 16:00 Nasal Cannula 2.0 01/22/21 16:00 2.0 01/22/21 14:00 81 18 95 Nasal Cannula 2.0 28 84 18 92 01/22/21 12:00 Nasal Cannula 2.0 01/22/21 12:00 96.8 82 24 111/80 (90) 94 01/22/21 12:00 2.0 01/22/21 11:45 76 Intake and Output 01/22/21 01/23/21 19:00 07:00 Intake Total 680 ml 140 ml Output Total 1200 ml Balance -520 ml 140 ml Intake Oral 680 ml 140 ml Output Urine Total 1200 ml # Voids 2 # Bowel Movements 1 Laboratory Tests Test 01/23/21 03:30 Sodium Level 140 MMOL/L (136-145) Potassium Level 4.3 MMOL/L (3.5-5.1) Chloride Level 102 MMOL/L (98-107) Carbon Dioxide Level 31 MMOL/L (21-32) Anion Gap 8 mmol/L (5-15) Blood Urea Nitrogen 28 mg/dL (7-18) H Creatinine 1.1 MG/DL (0.55-1.30) Estimat Glomerular Filtration Rate > 60 mL/min (>60) Glucose Level 126 MG/DL (74-106) H Calcium Level 9.8 MG/DL (8.5-10.1) Phosphorus Level 4.1 MG/DL (2.5-4.9) Magnesium Level 2.9 MG/DL (1.8-2.4) H Total Bilirubin 0.3 MG/DL (0.2-1.0) Aspartate Amino Transf (AST/SGOT) 50 U/L (15-37) H Alanine Aminotransferase (ALT/SGPT) 52 U/L (12-78) Alkaline Phosphatase 68 U/L (46-116) C-Reactive Protein, Quantitative 1.5 mg/dL (0.00-0.90) H Pro-B-Type Natriuretic Peptide 3869 pg/mL (0-125) H Total Protein 7.9 G/DL (6.4-8.2) Albumin 4.1 G/DL (3.4-5.0) Globulin 3.8 g/dL Albumin/Globulin Ratio 1.1 (1.0-2.7) Objective HEAD AND NECK: Shows positive JVD. LUNGS: Decreased breath sounds. CARDIOVASCULAR: Shows regular S1 and S2 with no gallop. ABDOMEN: Soft. EXTREMITIES: 2+ pitting edema. Raffy Garrido MD Jan 23, 2021 10:42
--- NOTE | 2021-01-23 11:04 | Pulmonology Progress Note ---
Subjective ROS Limited/Unobtainable: No Interval Events: hypotension -> now off lasix Constitutional: Reports: no symptoms HEENT: Repors: no symptoms Respiratory: Reports: shortness of breath Cardiovascular: Reports: no symptoms Gastrointestinal/Abdominal: Reports: no symptoms Allergies: Coded Allergies: No Known Allergies (Verified Allergy, Mild, 03/23/10) Objective Last 24 Hour Vital Signs Date Time Temp Pulse Resp B/P (MAP) Pulse Ox O2 Delivery O2 Flow Rate FiO2 01/23/21 08:55 108/78 01/23/21 08:54 62 108/78 01/23/21 08:08 80 18 95 Nasal Cannula 2.0 28 78 18 90 01/23/21 08:07 98 Nasal Cannula 2.0 28 01/23/21 08:00 2.0 01/23/21 08:00 Nasal Cannula 2.0 01/23/21 08:00 97.0 62 20 108/78 (88) 92 01/23/21 07:54 82 01/23/21 04:00 2.0 01/23/21 04:00 72 01/23/21 04:00 97.5 83 23 128/95 (106) 90 01/23/21 04:00 Nasal Cannula 2.0 01/23/21 01:07 76 18 94 Nasal Cannula 2.0 28 74 18 88 01/23/21 00:00 Nasal Cannula 2.0 01/23/21 00:00 97.5 78 22 96/68 (77) 90 01/23/21 00:00 Nasal Cannula 2.0 01/23/21 00:00 62 01/22/21 22:35 112/55 01/22/21 21:01 77 112/55 01/22/21 20:00 Nasal Cannula 2.0 01/22/21 20:00 97.0 78 22 112/55 (74) 90 01/22/21 20:00 2.0 01/22/21 20:00 77 01/22/21 19:29 80 18 95 Nasal Cannula 2.0 28 78 18 93 01/22/21 19:28 93 Nasal Cannula 2.0 28 01/22/21 16:00 84 01/22/21 16:00 96.9 71 22 117/69 (85) 92 01/22/21 16:00 Nasal Cannula 2.0 01/22/21 16:00 2.0 01/22/21 14:00 81 18 95 Nasal Cannula 2.0 28 84 18 92 01/22/21 12:00 Nasal Cannula 2.0 01/22/21 12:00 96.8 82 24 111/80 (90) 94 01/22/21 12:00 2.0 01/22/21 11:45 76 Intake and Output 01/22/21 01/23/21 19:00 07:00 Intake Total 680 ml 140 ml Output Total 1200 ml Balance -520 ml 140 ml Intake Oral 680 ml 140 ml Output Urine Total 1200 ml # Voids 2 # Bowel Movements 1 General Appearance: no acute distress HEENT: atraumatic Respiratory: decreased breath sounds Cardiovascular: normal rate, regular rhythm Abdomen: soft, non tender Musculoskeletal: other - LE edema Laboratory Tests 01/23/21 03:30: Sodium Level 140, Potassium Level 4.3, Chloride Level 102, Carbon Dioxide Level 31, Anion Gap 8, Blood Urea Nitrogen 28H, Creatinine 1.1, Estimat Glomerular Filtration Rate > 60, Glucose Level 126H, Calcium Level 9.8, Phosphorus Level 4.1, Magnesium Level 2.9H, Total Bilirubin 0.3, Aspartate Amino Transf (AST/SGOT) 50H, Alanine Aminotransferase (ALT/SGPT) 52, Alkaline Phosphatase 68, C-Reactive Protein, Quantitative 1.5H, Pro-B-Type Natriuretic Peptide 3869H, Total Protein 7.9, Albumin 4.1, Globulin 3.8, Albumin/Globulin Ratio 1.1 Current Medications Medications (Trade) Dose Ordered Sig/Della Route PRN Reason Start Time Stop Time Status Last Admin Dose Admin Acetaminophen (Tylenol) 500 mg Q6H PRN ORAL Mild Pain (Pain Scale 1-3) 01/18/21 22:30 02/17/21 22:29 Albuterol/ Ipratropium (Albuterol/ Ipratropium) 3 ml Q4H PRN HHN Shortness of Breath 01/23/21 10:00 01/28/21 09:59 Albuterol/ Ipratropium (Albuterol/ Ipratropium) 3 ml Q6HRT HHN 01/21/21 09:00 01/24/21 08:59 01/23/21 08:06 Allopurinol (allopurinoL) 300 mg DAILY ORAL 01/20/21 11:45 02/19/21 11:44 01/23/21 08:54 Carvedilol (Coreg) 12.5 mg EVERY 12 HOURS ORAL 01/18/21 21:00 02/17/21 20:59 01/23/21 08:54 Clonidine HCl (Catapres Tab) 0.1 mg Q4H PRN ORAL sbp>170 01/18/21 16:15 04/18/21 16:14 Docusate Sodium (Colace) 100 mg THREE TIMES A DAY ORAL 01/19/21 13:00 02/18/21 12:59 01/23/21 08:54 Levothyroxine Sodium (Synthroid) 50 mcg DAILY ORAL 01/23/21 09:00 02/22/21 08:59 01/23/21 08:55 Methylprednisolone Sodium Succinate (Solu-MEDROL) 40 mg EVERY 8 HOURS IVP 01/21/21 10:30 04/21/21 10:29 01/23/21 05:04 Pantoprazole (Protonix) 40 mg EVERY 12 HOURS ORAL 01/19/21 21:00 02/18/21 20:59 01/23/21 08:55 Sorbitol (sorbitoL) 30 ml BEDTIME ORAL 01/23/21 21:00 02/22/21 20:59 Assessment/Plan Assessment/Plan 1. CHF exacerbation with elevated BNP -Cardio following -2D Echo: EF 60-65% - on Lasix, lisinopril, Coreg -> now off lasix given hypotension 2. undiagnosed COPD exacerbation -Patient reports extensive history of smoking, over 30 years -Patient education provided on smoking cessation -Patient denies use of home oxygen -We will continue breathing treatment; now Q4hr - Continue supplemental oxygen -> pt desaturated to 81% on room air yesterday 3. Respiratory distress, likely secondary to #1 and #2 - Desaturated to 81% on room air this AM; continue supplemental oxygen -Continue steroids... Solu-Medrol 40 mg Q8hr -> will taper BID 4. bilateral lower extremity edema -Negative for DVT on V/D US -SCD and ambulation for DVT prophylaxis -Continue Lasix -> now off Lasix given hypotension 5. Hypothyroidism -On levothyroxine 6. Pulmonary congestion - on Lasix -> now off lasix given hypotension - supplemental oxygen as needed 7. hypotension, likely secondary to diuresis - s/p NS bolus - now off Lasix 8. Nicotine dependence - Pt education on smoking cessation We will consult ed case manager for hospital bed and home oxygen. The care for this patient was discussed with my supervising physician. Time spent for this case was approximately 31 minutes. The patient was seen and examined at bedside and all new and available data was reviewed in the patients chart. I agree with the above findings, impression, and plan. (Patient was seen earlier today. Signature timestamp does not reflect patient encounter time) Geoff Araya MD Jan 23, 2021 11:04 Darinel Blanchard MD Jan 23, 2021 15:18
[2021-01-23 12:00] VITALS: BP 131/87
--- NOTE | 2021-01-23 13:04 | Nephrology Progress Note ---
Assessment/Plan Problem List: (1) ABIOLA (acute kidney injury) (2) CHF (congestive heart failure) (3) COPD (chronic obstructive pulmonary disease) (4) UTI (urinary tract infection) (5) Obesity (6) Hypothyroidism Assessment Renal failure: Rising serum creatinine multifactorial. Mainly treatment for CHF with lisinopril and Lasix Congestive heart failure History of hypertension History of COPD Obesity, BMI 42.3 Elevated TSH: Hypothyroidism Plan January 23: Labs reviewed. Renal parameters stable. Continue per consultants. January 22: No labs drawn today. Patient clinically stable. Medication list reviewed. Blood pressure stable. Will check lab tomorrow. January 21: Labs reviewed. Medication list reviewed. Renal parameters and electrolytes improved. Blood pressure stable. 24-hour urine for total protein pending. Heart rate stable. Remains on Synthroid intravenously January 20: Labs reviewed. Medication list reviewed. Serum creatinine 1.4 unchanged. Continue per consultants. Blood pressure dropped as a result Lasix on hold. Allopurinol added. Continue to monitor renal parameters.Discussed with Dr Garrido . Parameters for Coreg and Lisinopril, 24-hour urine collection for total protein ordered. Will change Synthroid to IV for the next few days. Continue to optimize pulmonary and cardiac status Monitor renal parameters electrolytes Start Synthroid Stool softener and gastric support Per orders Subjective ROS Limited/Unobtainable: No Objective Objective Last 24 Hour Vital Signs Date Time Temp Pulse Resp B/P (MAP) Pulse Ox O2 Delivery O2 Flow Rate FiO2 01/23/21 12:00 Nasal Cannula 2.0 01/23/21 12:00 97.6 70 20 131/87 (102) 92 01/23/21 12:00 2.0 01/23/21 11:40 80 01/23/21 08:55 108/78 01/23/21 08:54 62 108/78 01/23/21 08:08 80 18 95 Nasal Cannula 2.0 28 78 18 90 01/23/21 08:07 98 Nasal Cannula 2.0 28 01/23/21 08:00 2.0 01/23/21 08:00 Nasal Cannula 2.0 01/23/21 08:00 97.0 62 20 108/78 (88) 92 01/23/21 07:54 82 01/23/21 04:00 2.0 01/23/21 04:00 72 01/23/21 04:00 97.5 83 23 128/95 (106) 90 01/23/21 04:00 Nasal Cannula 2.0 01/23/21 01:07 76 18 94 Nasal Cannula 2.0 28 74 18 88 01/23/21 00:00 Nasal Cannula 2.0 01/23/21 00:00 97.5 78 22 96/68 (77) 90 01/23/21 00:00 Nasal Cannula 2.0 01/23/21 00:00 62 01/22/21 22:35 112/55 01/22/21 21:01 77 112/55 01/22/21 20:00 Nasal Cannula 2.0 01/22/21 20:00 97.0 78 22 112/55 (74) 90 01/22/21 20:00 2.0 01/22/21 20:00 77 01/22/21 19:29 80 18 95 Nasal Cannula 2.0 28 78 18 93 01/22/21 19:28 93 Nasal Cannula 2.0 28 01/22/21 16:00 84 01/22/21 16:00 96.9 71 22 117/69 (85) 92 01/22/21 16:00 Nasal Cannula 2.0 01/22/21 16:00 2.0 01/22/21 14:00 81 18 95 Nasal Cannula 2.0 28 84 18 92 Intake and Output 01/22/21 01/23/21 19:00 07:00 Intake Total 680 ml 140 ml Output Total 1200 ml Balance -520 ml 140 ml Intake Oral 680 ml 140 ml Output Urine Total 1200 ml # Voids 2 # Bowel Movements 1 Current Medications Medications (Trade) Dose Ordered Sig/Della Route PRN Reason Start Time Stop Time Status Last Admin Dose Admin Acetaminophen (Tylenol) 500 mg Q6H PRN ORAL Mild Pain (Pain Scale 1-3) 01/18/21 22:30 02/17/21 22:29 Albuterol/ Ipratropium (Albuterol/ Ipratropium) 3 ml Q4H PRN HHN Shortness of Breath 01/23/21 10:00 01/28/21 09:59 Albuterol/ Ipratropium (Albuterol/ Ipratropium) 3 ml Q6HRT HHN 01/21/21 09:00 01/24/21 08:59 01/23/21 08:06 Allopurinol (allopurinoL) 300 mg DAILY ORAL 01/20/21 11:45 02/19/21 11:44 01/23/21 08:54 Carvedilol (Coreg) 12.5 mg EVERY 12 HOURS ORAL 01/18/21 21:00 02/17/21 20:59 01/23/21 08:54 Clonidine HCl (Catapres Tab) 0.1 mg Q4H PRN ORAL sbp>170 01/18/21 16:15 04/18/21 16:14 Docusate Sodium (Colace) 100 mg THREE TIMES A DAY ORAL 01/19/21 13:00 02/18/21 12:59 01/23/21 12:28 Levothyroxine Sodium (Synthroid) 50 mcg DAILY ORAL 01/23/21 09:00 02/22/21 08:59 01/23/21 08:55 Methylprednisolone Sodium Succinate (Solu-MEDROL) 40 mg EVERY 12 HOURS IVP 01/23/21 21:00 04/23/21 20:59 Pantoprazole (Protonix) 40 mg EVERY 12 HOURS ORAL 01/19/21 21:00 02/18/21 20:59 01/23/21 08:55 Sorbitol (sorbitoL) 30 ml BEDTIME ORAL 01/23/21 21:00 02/22/21 20:59 Laboratory Tests 01/23/21 03:30: Sodium Level 140, Potassium Level 4.3, Chloride Level 102, Carbon Dioxide Level 31, Anion Gap 8, Blood Urea Nitrogen 28H, Creatinine 1.1, Estimat Glomerular Filtration Rate > 60, Glucose Level 126H, Calcium Level 9.8, Phosphorus Level 4.1, Magnesium Level 2.9H, Total Bilirubin 0.3, Aspartate Amino Transf (AST/SGOT) 50H, Alanine Aminotransferase (ALT/SGPT) 52, Alkaline Phosphatase 68, C-Reactive Protein, Quantitative 1.5H, Pro-B-Type Natriuretic Peptide 3869H, Total Protein 7.9, Albumin 4.1, Globulin 3.8, Albumin/Globulin Ratio 1.1 Height (Feet): 5 Height (Inches): 10.00 Weight (Pounds): 295 General Appearance: no apparent distress Cardiovascular: normal rate Respiratory/Chest: decreased breath sounds Abdomen: distended Adilson Yang MD Jan 23, 2021 13:04
[2021-01-23 16:00] VITALS: BP 119/83
--- NOTE | 2021-01-23 19:16 | NUR ---
NURSE HAND-OFF REPORT: Important Events on Shift:[None] Patient Status: [Full code] Diet: [Cardiac] Pending Orders: [] Pending Results/Labs:[] Pending MD notification:[] Latest Vital Signs: Temperature 98.7 , Pulse 67 , B/P 119 /83 , Respiratory Rate 20 , O2 SAT 92 , Room Air, O2 Flow Rate 2.0 . Vital Sign Comment: [] EKG Rhythm: Sinus Rhythm Rhythm change?: N MD Notified?: - MD Response: Latest Back Fall Score: 35 Fall Risk: Medium Risk Safety Measures: Call light Within Reach, Bed Alarm Zone 2, Side Rails Side Rails x2, Bed position Low and Locked. Fall Precautions: Yellow Socks Door Sign Patient Fall Education Report given to [LATONIA Javed].
--- NOTE | 2021-01-23 19:30 | NUR ---
NURSE NOTES: Received report & pt from LATONIA Hurd. Pt in bed, a&ox4, on O2 via NC @ 2LPM. No s/s of acute distress & no c/o pain at this time. IV site intact & S/L'd. Bed in lowest position, call light within reach. Will continue to monitor.
[2021-01-23 20:00] VITALS: BP 113/91
--- NOTE | 2021-01-23 21:00 | General Progress Note ---
Subjective ROS Limited/Unobtainable: Yes Allergies: Coded Allergies: No Known Allergies (Verified Allergy, Mild, 03/23/10) Objective Last 24 Hour Vital Signs Date Time Temp Pulse Resp B/P (MAP) Pulse Ox O2 Delivery O2 Flow Rate FiO2 01/23/21 20:15 78 18 95 Nasal Cannula 2.0 28 75 18 93 01/23/21 20:13 93 Nasal Cannula 2.0 28 01/23/21 16:00 67 01/23/21 16:00 98.7 73 20 119/83 (95) 92 01/23/21 16:00 Nasal Cannula 2.0 01/23/21 16:00 2.0 01/23/21 14:07 80 18 94 Nasal Cannula 2.0 28 80 18 91 01/23/21 12:00 Nasal Cannula 2.0 01/23/21 12:00 97.6 70 20 131/87 (102) 92 01/23/21 12:00 2.0 01/23/21 11:40 80 01/23/21 08:55 108/78 01/23/21 08:54 62 108/78 01/23/21 08:08 80 18 95 Nasal Cannula 2.0 28 78 18 90 01/23/21 08:07 98 Nasal Cannula 2.0 28 01/23/21 08:00 2.0 01/23/21 08:00 Nasal Cannula 2.0 01/23/21 08:00 97.0 62 20 108/78 (88) 92 01/23/21 07:54 82 01/23/21 04:00 2.0 01/23/21 04:00 72 01/23/21 04:00 97.5 83 23 128/95 (106) 90 01/23/21 04:00 Nasal Cannula 2.0 01/23/21 01:07 76 18 94 Nasal Cannula 2.0 28 74 18 88 01/23/21 00:00 Nasal Cannula 2.0 01/23/21 00:00 97.5 78 22 96/68 (77) 90 01/23/21 00:00 Nasal Cannula 2.0 01/23/21 00:00 62 01/22/21 22:35 112/55 01/22/21 21:01 77 112/55 Intake and Output 01/22/21 01/23/21 19:00 07:00 Intake Total 680 ml 140 ml Output Total 1200 ml Balance -520 ml 140 ml Intake Oral 680 ml 140 ml Output Urine Total 1200 ml # Voids 2 # Bowel Movements 1 Laboratory Tests 01/23/21 03:30: Sodium Level 140, Potassium Level 4.3, Chloride Level 102, Carbon Dioxide Level 31, Anion Gap 8, Blood Urea Nitrogen 28H, Creatinine 1.1, Estimat Glomerular Filtration Rate > 60, Glucose Level 126H, Calcium Level 9.8, Phosphorus Level 4.1, Magnesium Level 2.9H, Total Bilirubin 0.3, Aspartate Amino Transf (AST/SGOT) 50H, Alanine Aminotransferase (ALT/SGPT) 52, Alkaline Phosphatase 68, C-Reactive Protein, Quantitative 1.5H, Pro-B-Type Natriuretic Peptide 3869H, Total Protein 7.9, Albumin 4.1, Globulin 3.8, Albumin/Globulin Ratio 1.1 Height (Feet): 5 Height (Inches): 10.00 Weight (Pounds): 295 Assessment/Plan Problem List: (1) Cardiomegaly ICD Codes: I51.7 - Cardiomegaly SNOMED: 9806001 (2) COPD (chronic obstructive pulmonary disease) ICD Codes: J44.9 - Chronic obstructive pulmonary disease, unspecified SNOMED: 93445863 (3) CHF (congestive heart failure) ICD Codes: I50.9 - Heart failure, unspecified SNOMED: 12473903 (4) UTI (urinary tract infection) ICD Codes: N39.0 - Urinary tract infection, site not specified SNOMED: 29598101 (5) ABIOLA (acute kidney injury) ICD Codes: N17.9 - Acute kidney failure, unspecified SNOMED: 7821584, 05463125 (6) Obesity ICD Codes: E66.9 - Obesity, unspecified SNOMED: 255800485, 515885781 Status: progressing Assessment/Plan: chf resp insuff copd is improving no wheezing continue oxygen weak needs pt/ot Ragini Naylor MD Jan 23, 2021 21:00
[2021-01-23] MEDS: Sorbitol Solution UD 30ml ORAL SCH (21:09)
--- NOTE | 2021-01-23 21:09 | General Progress Note ---
Subjective Allergies: Coded Allergies: No Known Allergies (Verified Allergy, Mild, 03/23/10) Subjective had a large BM feels much better tolerating PO Objective Last 24 Hour Vital Signs Date Time Temp Pulse Resp B/P (MAP) Pulse Ox O2 Delivery O2 Flow Rate FiO2 01/23/21 20:15 78 18 95 Nasal Cannula 2.0 28 75 18 93 01/23/21 20:13 93 Nasal Cannula 2.0 28 01/23/21 20:00 97.3 84 22 113/91 (98) 92 01/23/21 16:00 67 01/23/21 16:00 98.7 73 20 119/83 (95) 92 01/23/21 16:00 Nasal Cannula 2.0 01/23/21 16:00 2.0 01/23/21 14:07 80 18 94 Nasal Cannula 2.0 28 80 18 91 01/23/21 12:00 Nasal Cannula 2.0 01/23/21 12:00 97.6 70 20 131/87 (102) 92 01/23/21 12:00 2.0 01/23/21 11:40 80 01/23/21 08:55 108/78 01/23/21 08:54 62 108/78 01/23/21 08:08 80 18 95 Nasal Cannula 2.0 28 78 18 90 01/23/21 08:07 98 Nasal Cannula 2.0 28 01/23/21 08:00 2.0 01/23/21 08:00 Nasal Cannula 2.0 01/23/21 08:00 97.0 62 20 108/78 (88) 92 01/23/21 07:54 82 01/23/21 04:00 2.0 01/23/21 04:00 72 01/23/21 04:00 97.5 83 23 128/95 (106) 90 01/23/21 04:00 Nasal Cannula 2.0 01/23/21 01:07 76 18 94 Nasal Cannula 2.0 28 74 18 88 01/23/21 00:00 Nasal Cannula 2.0 01/23/21 00:00 97.5 78 22 96/68 (77) 90 01/23/21 00:00 Nasal Cannula 2.0 01/23/21 00:00 62 01/22/21 22:35 112/55 Intake and Output 01/22/21 01/23/21 19:00 07:00 Intake Total 680 ml 140 ml Output Total 1200 ml Balance -520 ml 140 ml Intake Oral 680 ml 140 ml Output Urine Total 1200 ml # Voids 2 # Bowel Movements 1 Laboratory Tests 01/23/21 03:30: Sodium Level 140, Potassium Level 4.3, Chloride Level 102, Carbon Dioxide Level 31, Anion Gap 8, Blood Urea Nitrogen 28H, Creatinine 1.1, Estimat Glomerular Filtration Rate > 60, Glucose Level 126H, Calcium Level 9.8, Phosphorus Level 4.1, Magnesium Level 2.9H, Total Bilirubin 0.3, Aspartate Amino Transf (AST/SGOT) 50H, Alanine Aminotransferase (ALT/SGPT) 52, Alkaline Phosphatase 68, C-Reactive Protein, Quantitative 1.5H, Pro-B-Type Natriuretic Peptide 3869H, Total Protein 7.9, Albumin 4.1, Globulin 3.8, Albumin/Globulin Ratio 1.1 Height (Feet): 5 Height (Inches): 10.00 Weight (Pounds): 295 Objective Obese NCAT Supple CTA RR Abd soft, (+) hernias no edema Assessment/Plan Status: progressing Assessment/Plan: Assessment - chronic constipation - HTN - Obesity - hypothyroid - hyperlipidemia - abd wall hernia Recommendations - Sorbitol nightly - po as tolerated - OOB - outpatient colonoscopy Odilon Quinonez MD Jan 23, 2021 21:09
--- NOTE | 2021-01-23 22:00 | NUR ---
NURSE NOTES: Pt in no acute distress. Asleep.
[2021-01-24] VITALS: BP 118/75
--- NOTE | 2021-01-24 | NUR ---
NURSE NOTES: Pt awake. VS taken. Gave jello per pt request.
[2021-01-24] MEDS: Albuterol/Ipratropium 3ml neb HHN SCH ×2 (00:35→07:51)
[2021-01-24 04:00] VITALS: BP 122/84
--- NOTE | 2021-01-24 04:00 | NUR ---
NURSE NOTES: Pt asleep. No complaints of anything. Vital signs taken.
--- NOTE | 2021-01-24 06:52 | NUR ---
NURSE HAND-OFF REPORT: Important Events on Shift:none Patient Status: stable Diet: cardiac Pending Orders: Pending Results/Labs: Pending MD notification: Latest Vital Signs: Temperature 98.1 , Pulse 75 , B/P 122 /84 , Respiratory Rate 18 , O2 SAT 90 , Room Air, O2 Flow Rate 2.0 . Vital Sign Comment: EKG Rhythm: Sinus Rhythm Rhythm change?: N MD Notified?: - N MD Response: Latest Back Fall Score: 35 Fall Risk: Medium Risk Safety Measures: Call light Within Reach, Bed Alarm Zone 2, Side Rails Side Rails x2, Bed position Low and Locked. Fall Precautions: Yellow Socks Door Sign Patient Fall Education Report given to Kirsten Reyez RN.
--- NOTE | 2021-01-24 07:21 | NUR ---
NURSE NOTES: Received report from Fam Javed, pt. in bed awake, appears to be alert A/O x's 3- able to make needs known, no signs or symptoms of acute cardiac or respiratory distress noted, bed in lowest position and call light within easy reach, bed alarm on , side rails up x's3 and safety brakes engaged, pt. appears to be sating well on 2L NC - right hand 20G IV intact and patent, will continue to monitor pt. and with plan of care.
[2021-01-24 08:00] VITALS: BP 132/89
[2021-01-24] MEDS: Docusate 100mg cap ORAL SCH ×3 (08:01→16:59)
[2021-01-24] MEDS: Solu-MEDROL 40mg Inj IVP SCH ×2 (08:04→20:46)
[2021-01-24] MEDS: Carvedilol 12.5mg tab ORAL SCH (08:05)
--- NOTE | 2021-01-24 08:51 | Pulmonology Progress Note ---
Subjective ROS Limited/Unobtainable: Yes Interval Events: hypotension -> now off lasix Constitutional: Reports: no symptoms HEENT: Repors: no symptoms Respiratory: Reports: shortness of breath Cardiovascular: Reports: no symptoms Gastrointestinal/Abdominal: Reports: no symptoms Allergies: Coded Allergies: No Known Allergies (Verified Allergy, Mild, 03/23/10) Objective Last 24 Hour Vital Signs Date Time Temp Pulse Resp B/P (MAP) Pulse Ox O2 Delivery O2 Flow Rate FiO2 01/24/21 08:05 82 132/89 01/24/21 08:00 97.7 78 18 132/89 (103) 97 01/24/21 07:59 78 18 97 Nasal Cannula 4.0 36 72 22 91 01/24/21 07:51 91 Nasal Cannula 4.0 36 01/24/21 04:30 40 01/24/21 04:00 82 01/24/21 04:00 Nasal Cannula 2.0 01/24/21 04:00 98.1 75 18 122/84 (97) 90 01/24/21 00:35 80 18 94 Nasal Cannula 2.0 28 81 18 91 01/24/21 00:00 Nasal Cannula 2.0 01/24/21 00:00 98.0 77 20 118/75 (89) 90 01/24/21 00:00 79 01/23/21 21:10 78 113/91 01/23/21 20:15 78 18 95 Nasal Cannula 2.0 28 75 18 93 01/23/21 20:13 93 Nasal Cannula 2.0 28 01/23/21 20:00 2.0 01/23/21 20:00 Nasal Cannula 2.0 01/23/21 20:00 97.3 84 22 113/91 (98) 92 01/23/21 20:00 83 01/23/21 16:00 67 01/23/21 16:00 98.7 73 20 119/83 (95) 92 01/23/21 16:00 Nasal Cannula 2.0 01/23/21 16:00 2.0 01/23/21 14:07 80 18 94 Nasal Cannula 2.0 28 80 18 91 01/23/21 12:00 Nasal Cannula 2.0 01/23/21 12:00 97.6 70 20 131/87 (102) 92 01/23/21 12:00 2.0 01/23/21 11:40 80 3/4/21 08:55 108/78 01/23/21 08:54 62 108/78 Intake and Output 01/23/21 01/24/21 19:00 07:00 Intake Total 840 ml 420 ml Balance 840 ml 420 ml Intake Oral 840 ml 420 ml # Voids 3 General Appearance: no acute distress HEENT: atraumatic Respiratory: decreased breath sounds Cardiovascular: normal rate, regular rhythm Abdomen: soft, non tender Musculoskeletal: other - LE edema Current Medications Medications (Trade) Dose Ordered Sig/Della Route PRN Reason Start Time Stop Time Status Last Admin Dose Admin Acetaminophen (Tylenol) 500 mg Q6H PRN ORAL Mild Pain (Pain Scale 1-3) 01/18/21 22:30 02/17/21 22:29 01/23/21 21:12 Albuterol/ Ipratropium (Albuterol/ Ipratropium) 3 ml Q4H PRN HHN Shortness of Breath 01/23/21 10:00 01/28/21 09:59 Albuterol/ Ipratropium (Albuterol/ Ipratropium) 3 ml Q6HRT HHN 01/21/21 09:00 01/24/21 08:59 01/24/21 07:51 Allopurinol (allopurinoL) 300 mg DAILY ORAL 01/20/21 11:45 02/19/21 11:44 01/24/21 08:05 Carvedilol (Coreg) 12.5 mg EVERY 12 HOURS ORAL 01/18/21 21:00 02/17/21 20:59 01/24/21 08:05 Clonidine HCl (Catapres Tab) 0.1 mg Q4H PRN ORAL sbp>170 01/18/21 16:15 04/18/21 16:14 Docusate Sodium (Colace) 100 mg THREE TIMES A DAY ORAL 01/19/21 13:00 02/18/21 12:59 01/23/21 17:18 Levothyroxine Sodium (Synthroid) 50 mcg DAILY ORAL 01/23/21 09:00 02/22/21 08:59 01/23/21 08:55 Methylprednisolone Sodium Succinate (Solu-MEDROL) 40 mg EVERY 12 HOURS IVP 01/23/21 21:00 04/23/21 20:59 01/24/21 08:04 Pantoprazole (Protonix) 40 mg EVERY 12 HOURS ORAL 01/19/21 21:00 02/18/21 20:59 01/24/21 08:04 Sorbitol (sorbitoL) 30 ml BEDTIME ORAL 01/23/21 21:00 02/22/21 20:59 01/23/21 21:09 Assessment/Plan Assessment/Plan 1. CHF exacerbation with elevated BNP -Cardio following -2D Echo: EF 60-65% - on Lasix, lisinopril, Coreg -> now off lasix given hypotension 2. undiagnosed COPD exacerbation -Patient reports extensive history of smoking, over 30 years -Patient education provided on smoking cessation -Patient denies use of home oxygen -We will continue breathing treatment; now Q4hr - Continue supplemental oxygen -> pt desaturated to 81% on room air 3. Respiratory distress, likely secondary to #1 and #2 - Desaturated to 81% on room air this AM; continue supplemental oxygen -Continue steroids... Solu-Medrol 40 mg Q8hr -> will taper BID 4. bilateral lower extremity edema -Negative for DVT on V/D US -SCD and ambulation for DVT prophylaxis -Continue Lasix -> now off Lasix given hypotension 5. Hypothyroidism -On levothyroxine 6. Pulmonary congestion - on Lasix -> now off lasix given hypotension - supplemental oxygen as needed 7. hypotension, likely secondary to diuresis - s/p NS bolus - now off Lasix 8. Nicotine dependence - Pt education on smoking cessation 9. Abd wall hernia - Seen by GI - Needs outpatient colonoscopy per GI We will consult family independence case manager for hospital bed and home oxygen. The care for this patient was discussed with my supervising physician. Time spent for this case was approximately 31 minutes. Geoff Scott Jan 24, 2021 08:51
--- NOTE | 2021-01-24 09:15 | NUR ---
RESPIRATORY NOTE: Pt received on 4L nasal cannula. Pt desaturating to 80s. Placed on 14L 55% Venturi mask. Pt SpO2 93% on Venturi. RN aware. Will continue to monitor and titrate FiO2 as tolerated.
--- NOTE | 2021-01-24 09:16 | NUR ---
NURSE NOTES: pt. desating on NC 2l- to low 80's- RT. placed pt. on venturi mask 14L 55% fio2- pt. sating at 96%- will continue to monitor pt. and with plan of care.
--- NOTE | 2021-01-24 10:21 | Cardiac Electrophysiology PN ---
Assessment/Plan Assessment/Plan 1. Bilateral lower extremity edema and shortness of breath. BNP elevated at 439. Lower extremity duplex showed no evidence of DVT. Echo showed Nl Ejection fraction 65%. Off Lasix due to low BP 2. History of hypertension. Now off Lasix. DC lisinopril 10 and decrease to carvedilol 6.25 po bid in view of bradycardia 3. History of COPD. 4. Hypothyroidism, now on Synthroid DW RN and Dr. Yang Subjective Subjective Did not get Lisinopril as BP was in 90s again. Echo EF 65%. Now on Venturi Mask. RN at bedside Objective Last 24 Hour Vital Signs Date Time Temp Pulse Resp B/P (MAP) Pulse Ox O2 Delivery O2 Flow Rate FiO2 01/24/21 09:17 14.0 55 01/24/21 09:14 90 Venturi Mask 14.0 55 01/24/21 08:05 82 132/89 01/24/21 08:00 97.7 78 18 132/89 (103) 97 01/24/21 08:00 2.0 01/24/21 08:00 Nasal Cannula 2.0 01/24/21 07:59 78 18 97 Nasal Cannula 4.0 36 72 22 91 01/24/21 07:51 91 Nasal Cannula 4.0 36 01/24/21 07:47 84 01/24/21 04:30 40 01/24/21 04:00 82 01/24/21 04:00 Nasal Cannula 2.0 01/24/21 04:00 98.1 75 18 122/84 (97) 90 01/24/21 00:35 80 18 94 Nasal Cannula 2.0 28 81 18 91 01/24/21 00:00 Nasal Cannula 2.0 01/24/21 00:00 98.0 77 20 118/75 (89) 90 01/24/21 00:00 79 01/23/21 21:10 78 113/91 01/23/21 20:15 78 18 95 Nasal Cannula 2.0 28 75 18 93 01/23/21 20:13 93 Nasal Cannula 2.0 28 01/23/21 20:00 2.0 01/23/21 20:00 Nasal Cannula 2.0 01/23/21 20:00 97.3 84 22 113/91 (98) 92 01/23/21 20:00 83 01/23/21 16:00 67 01/23/21 16:00 98.7 73 20 119/83 (95) 92 01/23/21 16:00 Nasal Cannula 2.0 01/23/21 16:00 2.0 01/23/21 14:07 80 18 94 Nasal Cannula 2.0 28 80 18 91 01/23/21 12:00 Nasal Cannula 2.0 01/23/21 12:00 97.6 70 20 131/87 (102) 92 01/23/21 12:00 2.0 01/23/21 11:40 80 Intake and Output 01/23/21 01/24/21 19:00 07:00 Intake Total 840 ml 420 ml Balance 840 ml 420 ml Intake Oral 840 ml 420 ml # Voids 3 Objective HEAD AND NECK: Positive JVD. LUNGS: Decreased breath sounds. CARDIOVASCULAR: Shows regular S1 and S2 with no gallop. ABDOMEN: Soft. EXTREMITIES: 2+ pitting edema. Raffy Garrido MD Jan 24, 2021 10:21
--- NOTE | 2021-01-24 10:33 | Infectious Diseases Prog Note ---
Assessment/Plan Assessment/Plan IMPRESSION: 1. COPD with exacerbation. 2. Hypoxemia. 3. Diastolic CHF. 4. Acute renal failure. 5. Morbid obesity. 6. Hypothyroidism. 7. Nicotine dependence. RECOMMENDATION: CXR Continue steroids Subjective ROS Limited/Unobtainable: Yes Respiratory: Reports: other - desaturated yesterday, Allergies: Coded Allergies: No Known Allergies (Verified Allergy, Mild, 03/23/10) Objective Last 24 Hour Vital Signs Date Time Temp Pulse Resp B/P (MAP) Pulse Ox O2 Delivery O2 Flow Rate FiO2 01/24/21 09:17 14.0 55 01/24/21 09:14 90 Venturi Mask 14.0 55 01/24/21 08:05 82 132/89 01/24/21 08:00 97.7 78 18 132/89 (103) 97 01/24/21 08:00 2.0 01/24/21 08:00 Nasal Cannula 2.0 01/24/21 07:59 78 18 97 Nasal Cannula 4.0 36 72 22 91 01/24/21 07:51 91 Nasal Cannula 4.0 36 01/24/21 07:47 84 01/24/21 04:30 40 01/24/21 04:00 82 01/24/21 04:00 Nasal Cannula 2.0 01/24/21 04:00 98.1 75 18 122/84 (97) 90 01/24/21 00:35 80 18 94 Nasal Cannula 2.0 28 81 18 91 01/24/21 00:00 Nasal Cannula 2.0 01/24/21 00:00 98.0 77 20 118/75 (89) 90 01/24/21 00:00 79 01/23/21 21:10 78 113/91 01/23/21 20:15 78 18 95 Nasal Cannula 2.0 28 75 18 93 01/23/21 20:13 93 Nasal Cannula 2.0 28 01/23/21 20:00 2.0 01/23/21 20:00 Nasal Cannula 2.0 01/23/21 20:00 97.3 84 22 113/91 (98) 92 01/23/21 20:00 83 01/23/21 16:00 67 01/23/21 16:00 98.7 73 20 119/83 (95) 92 01/23/21 16:00 Nasal Cannula 2.0 01/23/21 16:00 2.0 01/23/21 14:07 80 18 94 Nasal Cannula 2.0 28 80 18 91 01/23/21 12:00 Nasal Cannula 2.0 01/23/21 12:00 97.6 70 20 131/87 (102) 92 01/23/21 12:00 2.0 01/23/21 11:40 80 Height (Feet): 5 Height (Inches): 10.00 Weight (Pounds): 295 HEENT: mucous membranes moist Respiratory/Chest: lungs clear, other - on venturi mask Cardiovascular: normal rate Abdomen: soft, non tender Extremities: other - decreased edema Neurologic/Psychiatric: other - sleeping Current Medications Medications (Trade) Dose Ordered Sig/Della Route PRN Reason Start Time Stop Time Status Last Admin Dose Admin Acetaminophen (Tylenol) 500 mg Q6H PRN ORAL Mild Pain (Pain Scale 1-3) 01/18/21 22:30 02/17/21 22:29 01/23/21 21:12 Albuterol/ Ipratropium (Albuterol/ Ipratropium) 3 ml Q4H PRN HHN Shortness of Breath 01/23/21 10:00 01/28/21 09:59 Allopurinol (allopurinoL) 300 mg DAILY ORAL 01/20/21 11:45 02/19/21 11:44 01/24/21 08:05 Carvedilol (Coreg) 6.25 mg EVERY 12 HOURS ORAL 01/24/21 21:00 02/17/21 20:59 Clonidine HCl (Catapres Tab) 0.1 mg Q4H PRN ORAL sbp>170 01/18/21 16:15 04/18/21 16:14 Docusate Sodium (Colace) 100 mg THREE TIMES A DAY ORAL 01/19/21 13:00 02/18/21 12:59 01/23/21 17:18 Levothyroxine Sodium (Synthroid) 50 mcg DAILY ORAL 01/23/21 09:00 02/22/21 08:59 01/24/21 08:54 Methylprednisolone Sodium Succinate (Solu-MEDROL) 40 mg EVERY 12 HOURS IVP 01/23/21 21:00 04/23/21 20:59 01/24/21 08:04 Pantoprazole (Protonix) 40 mg EVERY 12 HOURS ORAL 01/19/21 21:00 02/18/21 20:59 01/24/21 08:04 Sorbitol (sorbitoL) 30 ml BEDTIME ORAL 01/23/21 21:00 02/22/21 20:59 01/23/21 21:09 Amilcar Rodriguez MD Jan 24, 2021 10:33
[2021-01-24 11:56] VITALS: BP 115/90
--- NOTE | 2021-01-24 12:00 | NUR ---
NURSE NOTES: pt. switched back to nasal cannula 2L appears to be sating well- will continue to monitor pt. and with plan of care.
--- NOTE | 2021-01-24 13:20 | Nephrology Progress Note ---
Assessment/Plan Problem List: (1) ABIOLA (acute kidney injury) (2) CHF (congestive heart failure) (3) COPD (chronic obstructive pulmonary disease) (4) UTI (urinary tract infection) (5) Obesity (6) Hypothyroidism Assessment Renal failure: Rising serum creatinine multifactorial. Mainly treatment for CHF with lisinopril and Lasix Congestive heart failure History of hypertension History of COPD Obesity, BMI 42.3 Elevated TSH: Hypothyroidism Plan January 24: No labs drawn today. Clinically stable. Will check lab tomorrow. Continue per consultants. Medication list reviewed. January 23: Labs reviewed. Renal parameters stable. Continue per consultants. January 22: No labs drawn today. Patient clinically stable. Medication list reviewed. Blood pressure stable. Will check lab tomorrow. January 21: Labs reviewed. Medication list reviewed. Renal parameters and electrolytes improved. Blood pressure stable. 24-hour urine for total protein pending. Heart rate stable. Remains on Synthroid intravenously January 20: Labs reviewed. Medication list reviewed. Serum creatinine 1.4 unchanged. Continue per consultants. Blood pressure dropped as a result Lasix on hold. Allopurinol added. Continue to monitor renal parameters.Discussed with Dr Garrido . Parameters for Coreg and Lisinopril, 24-hour urine collection for total protein ordered. Will change Synthroid to IV for the next few days. Continue to optimize pulmonary and cardiac status Monitor renal parameters electrolytes Start Synthroid Stool softener and gastric support Per orders Subjective ROS Limited/Unobtainable: No Constitutional: Reports: malaise Objective Objective Last 24 Hour Vital Signs Date Time Temp Pulse Resp B/P (MAP) Pulse Ox O2 Delivery O2 Flow Rate FiO2 01/24/21 12:00 2.0 01/24/21 12:00 Nasal Cannula 2.0 01/24/21 11:56 97.8 68 18 115/90 (98) 96 01/24/21 11:54 43 01/24/21 09:17 14.0 55 01/24/21 09:14 90 Venturi Mask 14.0 55 01/24/21 08:05 82 132/89 01/24/21 08:00 97.7 78 18 132/89 (103) 97 01/24/21 08:00 2.0 01/24/21 08:00 Nasal Cannula 2.0 01/24/21 07:59 78 18 97 Nasal Cannula 4.0 36 72 22 91 01/24/21 07:51 91 Nasal Cannula 4.0 36 01/24/21 07:47 84 01/24/21 04:30 40 01/24/21 04:00 82 01/24/21 04:00 Nasal Cannula 2.0 01/24/21 04:00 98.1 75 18 122/84 (97) 90 01/24/21 00:35 80 18 94 Nasal Cannula 2.0 28 81 18 91 01/24/21 00:00 Nasal Cannula 2.0 01/24/21 00:00 98.0 77 20 118/75 (89) 90 01/24/21 00:00 79 01/23/21 21:10 78 113/91 01/23/21 20:15 78 18 95 Nasal Cannula 2.0 28 75 18 93 01/23/21 20:13 93 Nasal Cannula 2.0 28 01/23/21 20:00 2.0 01/23/21 20:00 Nasal Cannula 2.0 01/23/21 20:00 97.3 84 22 113/91 (98) 92 01/23/21 20:00 83 01/23/21 16:00 67 01/23/21 16:00 98.7 73 20 119/83 (95) 92 01/23/21 16:00 Nasal Cannula 2.0 01/23/21 16:00 2.0 01/23/21 14:07 80 18 94 Nasal Cannula 2.0 28 80 18 91 l Intake and Output 01/23/21 01/24/21 19:00 07:00 Intake Total 840 ml 420 ml Balance 840 ml 420 ml Intake Oral 840 ml 420 ml # Voids 3 No labs drawn today Height (Feet): 5 Height (Inches): 10.00 Weight (Pounds): 295 General Appearance: no apparent distress Cardiovascular: normal rate Respiratory/Chest: decreased breath sounds Abdomen: soft Adilson Yang MD Jan 24, 2021 13:20
--- NOTE | 2021-01-24 13:36 | NUR ---
NURSE NOTES: pt. desaturating on NC- will put her back on Venturi mask- will continue to monitor pt. and with plan of care.
--- NOTE | 2021-01-24 13:41 | NUR ---
NURSE NOTES: helped pt. reposition in bed- and changed linens- will continue to monitor pt. and with plan of care.
--- NOTE | 2021-01-24 15:36 | NUR ---
NURSE NOTES: pt. changed back from venturi mask to NC 5L- pt. appears to be sating well- at 96%- will continue to monitor pt. and with plan of care.
--- NOTE | 2021-01-24 15:49 | NUR ---
EARLY MORNING NOTES SPOKE WITH MARÍA FROM [facility], MADE AWARE OF DME NEEDED FOR DC. AUTHORIZATION REQUEST TO BE SIGNED BY AND FAXED BACK TO [facility]. FORM LEFT IN CHART MD AWARE SIGNATURE IS PENDING.WILL HAVE WEEK-END CASEMANAGER FOLLOW WITH THE FORM COMPLETION.
[2021-01-24 15:57] VITALS: BP 116/82
--- NOTE | 2021-01-24 18:16 | Diagnostic Imaging Report ---
Indication: Dyspnea Technique: One view of the chest Comparison: 01/18/2021 Findings: Interval marked increase in and now fairly extensive bilateral interstitial and airspace edema versus infiltrates. The heart is borderline enlarged. The pleural spaces are grossly clear Impression: Worsening bilateral pulmonary edema, versus infiltrates
--- NOTE | 2021-01-24 19:02 | NUR ---
NURSE NOTES: report given to LATONIA German, pt. remains stable and no signs or symptoms of distress noted.
[2021-01-24 20:00] VITALS: BP 128/71
--- NOTE | 2021-01-24 20:32 | General Progress Note ---
Subjective Allergies: Coded Allergies: No Known Allergies (Verified Allergy, Mild, 03/23/10) Subjective (+) BM yesterday tolerating PO Objective Last 24 Hour Vital Signs Date Time Temp Pulse Resp B/P (MAP) Pulse Ox O2 Delivery O2 Flow Rate FiO2 01/24/21 19:40 91 Nasal Cannula 3.0 32 01/24/21 19:40 73 20 91 Nasal Cannula 3.0 32 01/24/21 16:00 Nasal Cannula 5.0 01/24/21 16:00 5.0 01/24/21 15:57 98.2 96 18 116/82 (93) 96 01/24/21 15:42 73 01/24/21 15:35 5.0 01/24/21 13:37 14.0 55 01/24/21 12:00 2.0 01/24/21 12:00 Nasal Cannula 2.0 01/24/21 11:56 97.8 68 18 115/90 (98) 96 01/24/21 11:54 43 01/24/21 09:17 14.0 55 01/24/21 09:14 90 Venturi Mask 14.0 55 01/24/21 08:05 82 132/89 01/24/21 08:00 97.7 78 18 132/89 (103) 97 01/24/21 08:00 2.0 01/24/21 08:00 Nasal Cannula 2.0 01/24/21 07:59 78 18 97 Nasal Cannula 4.0 36 72 22 91 01/24/21 07:51 91 Nasal Cannula 4.0 36 01/24/21 07:47 84 01/24/21 04:30 40 01/24/21 04:00 82 01/24/21 04:00 Nasal Cannula 2.0 01/24/21 04:00 98.1 75 18 122/84 (97) 90 01/24/21 00:35 80 18 94 Nasal Cannula 2.0 28 81 18 91 01/24/21 00:00 Nasal Cannula 2.0 01/24/21 00:00 98.0 77 20 118/75 (89) 90 01/24/21 00:00 79 01/23/21 21:10 78 113/91 Intake and Output 01/23/21 01/24/21 19:00 07:00 Intake Total 840 ml 420 ml Balance 840 ml 420 ml Intake Oral 840 ml 420 ml # Voids 3 Height (Feet): 5 Height (Inches): 10.00 Weight (Pounds): 295 Objective Obese NCAT Supple CTA RR Abd soft, (+) hernias no edema Assessment/Plan Status: progressing Assessment/Plan: Assessment - chronic constipation - HTN - Obesity - hypothyroid - hyperlipidemia - abd wall hernia Recommendations - Sorbitol nightly, and PRN doses - po as tolerated - OOB - outpatient colonoscopy Odilon Quinonez MD Jan 24, 2021 20:32
[2021-01-24] MEDS ORDERED: Sorbitol Solution UD 30ml ORAL PRN (20:45)
[2021-01-24] MEDS: Carvedilol 6.25mg Tab ORAL SCH (20:54)
[2021-01-24] MEDS: Sorbitol Solution UD 30ml ORAL SCH (20:55)
--- NOTE | 2021-01-24 21:26 | General Progress Note ---
Subjective ROS Limited/Unobtainable: Yes Allergies: Coded Allergies: No Known Allergies (Verified Allergy, Mild, 03/23/10) Objective Last 24 Hour Vital Signs Date Time Temp Pulse Resp B/P (MAP) Pulse Ox O2 Delivery O2 Flow Rate FiO2 01/24/21 20:54 67 128/71 01/24/21 20:00 65 01/24/21 19:40 91 Nasal Cannula 3.0 32 01/24/21 19:40 73 20 91 Nasal Cannula 3.0 32 01/24/21 16:00 Nasal Cannula 5.0 01/24/21 16:00 5.0 01/24/21 15:57 98.2 96 18 116/82 (93) 96 01/24/21 15:42 73 01/24/21 15:35 5.0 01/24/21 13:37 14.0 55 01/24/21 12:00 2.0 01/24/21 12:00 Nasal Cannula 2.0 01/24/21 11:56 97.8 68 18 115/90 (98) 96 01/24/21 11:54 43 01/24/21 09:17 14.0 55 01/24/21 09:14 90 Venturi Mask 14.0 55 01/24/21 08:05 82 132/89 01/24/21 08:00 97.7 78 18 132/89 (103) 97 01/24/21 08:00 2.0 01/24/21 08:00 Nasal Cannula 2.0 01/24/21 07:59 78 18 97 Nasal Cannula 4.0 36 72 22 91 01/24/21 07:51 91 Nasal Cannula 4.0 36 01/24/21 07:47 84 01/24/21 04:30 40 01/24/21 04:00 82 01/24/21 04:00 Nasal Cannula 2.0 01/24/21 04:00 98.1 75 18 122/84 (97) 90 01/24/21 00:35 80 18 94 Nasal Cannula 2.0 28 81 18 91 01/24/21 00:00 Nasal Cannula 2.0 01/24/21 00:00 98.0 77 20 118/75 (89) 90 01/24/21 00:00 79 Intake and Output 01/23/21 01/24/21 19:00 07:00 Intake Total 840 ml 420 ml Balance 840 ml 420 ml Intake Oral 840 ml 420 ml # Voids 3 Height (Feet): 5 Height (Inches): 10.00 Weight (Pounds): 295 Assessment/Plan Problem List: (1) Cardiomegaly ICD Codes: I51.7 - Cardiomegaly SNOMED: 4809878 (2) COPD (chronic obstructive pulmonary disease) ICD Codes: J44.9 - Chronic obstructive pulmonary disease, unspecified SNOMED: 06509519 (3) CHF (congestive heart failure) ICD Codes: I50.9 - Heart failure, unspecified SNOMED: 36333988 (4) UTI (urinary tract infection) ICD Codes: N39.0 - Urinary tract infection, site not specified SNOMED: 11386662 (5) ABIOLA (acute kidney injury) ICD Codes: N17.9 - Acute kidney failure, unspecified SNOMED: 3985741, 46213266 (6) Obesity ICD Codes: E66.9 - Obesity, unspecified SNOMED: 212752105, 528627558 Status: progressing Assessment/Plan: chf copd resp insuff afebrile arf uti no wheezing Ragini Naylor MD Jan 24, 2021 21:26
[2021-01-25] VITALS: BP 111/68
[2021-01-25 04:00] VITALS: BP 136/96
--- NOTE | 2021-01-25 07:00 | NUR ---
NURSE NOTES: Received report from LATONIA German. pt in bed awake and oriented. IV site in right hand 20G patent and intact. Side railsx2 up for safety. Bed in lowest position and locked. O2 2LPM via N/C and sating 93%. Call light within easy reach. Will continue to plan of care.
[2021-01-25 08:00] VITALS: BP 138/75
[2021-01-25] MEDS: Solu-MEDROL 40mg Inj IVP SCH (08:16)
[2021-01-25] MEDS: Docusate 100mg cap ORAL SCH ×3 (08:16→17:36)
[2021-01-25] MEDS: Carvedilol 6.25mg Tab ORAL SCH ×2 (08:16→20:07)
--- NOTE | 2021-01-25 08:35 | General Progress Note ---
Subjective ROS Limited/Unobtainable: Yes Allergies: Coded Allergies: No Known Allergies (Verified Allergy, Mild, 03/23/10) Objective Last 24 Hour Vital Signs Date Time Temp Pulse Resp B/P (MAP) Pulse Ox O2 Delivery O2 Flow Rate FiO2 01/25/21 08:16 74 138/75 01/25/21 08:00 97.5 74 18 138/75 (96) 92 01/25/21 07:23 95 Nasal Cannula 3.0 32 01/25/21 07:22 77 20 95 Nasal Cannula 3.0 32 01/25/21 04:00 97.2 77 18 136/96 (109) 91 01/25/21 04:00 46 01/25/21 04:00 Nasal Cannula 5.0 01/25/21 04:00 2.0 01/25/21 00:00 70 01/25/21 00:00 97.5 81 18 111/68 (82) 88 01/25/21 00:00 Nasal Cannula 5.0 01/24/21 20:54 67 128/71 01/24/21 20:00 65 01/24/21 20:00 98.0 63 18 128/71 (90) 97 01/24/21 20:00 Nasal Cannula 5.0 01/24/21 20:00 2.0 01/24/21 19:40 91 Nasal Cannula 3.0 32 01/24/21 19:40 73 20 91 Nasal Cannula 3.0 32 01/24/21 16:00 Nasal Cannula 5.0 01/24/21 16:00 5.0 01/24/21 15:57 98.2 96 18 116/82 (93) 96 01/24/21 15:42 73 01/24/21 15:35 5.0 01/24/21 13:37 14.0 55 01/24/21 12:00 2.0 01/24/21 12:00 Nasal Cannula 2.0 01/24/21 11:56 97.8 68 18 115/90 (98) 96 01/24/21 11:54 43 01/24/21 09:17 14.0 55 01/24/21 09:14 90 Venturi Mask 14.0 55 Intake and Output 01/24/21 01/25/21 19:00 07:00 Intake Total 480 ml Balance 480 ml Intake Oral 480 ml # Voids 3 1 Height (Feet): 5 Height (Inches): 10.00 Weight (Pounds): 295 General Appearance: no apparent distress EENT: normal ENT inspection Neck: supple Cardiovascular: normal rate Respiratory/Chest: decreased breath sounds Abdomen: hypoactive bowel sounds Extremities: non-tender Assessment/Plan Status: progressing Assessment/Plan: Assessment/Plan Status: progressing Assessment/Plan: Assessment - chronic constipation - HTN - Obesity - hypothyroid - hyperlipidemia - abd wall hernia Recommendations - Sorbitol nightly, and PRN doses - po as tolerated - OOB - outpatient colonoscopy Michele Wu MD Jan 25, 2021 08:35
[2021-01-25] MEDS ORDERED: NS 500ML ONE (11:21)
[2021-01-25] MEDS ORDERED: Tubing IV Secondary IV ONE (11:21)
[2021-01-25] MEDS ORDERED: NS 275ml ONE (11:21)
--- NOTE | 2021-01-25 11:24 | Pulmonology Progress Note ---
Subjective ROS Limited/Unobtainable: Yes Interval Events: hypotension -> now off lasix Constitutional: Reports: no symptoms HEENT: Repors: no symptoms Respiratory: Reports: shortness of breath Cardiovascular: Reports: no symptoms Gastrointestinal/Abdominal: Reports: no symptoms Allergies: Coded Allergies: No Known Allergies (Verified Allergy, Mild, 03/23/10) Objective Last 24 Hour Vital Signs Date Time Temp Pulse Resp B/P (MAP) Pulse Ox O2 Delivery O2 Flow Rate FiO2 01/25/21 08:16 74 138/75 01/25/21 08:00 2.0 01/25/21 08:00 65 01/25/21 08:00 97.5 74 18 138/75 (96) 92 01/25/21 08:00 Nasal Cannula 2.0 01/25/21 07:23 95 Nasal Cannula 3.0 32 01/25/21 07:22 77 20 95 Nasal Cannula 3.0 32 01/25/21 04:00 97.2 77 18 136/96 (109) 91 01/25/21 04:00 46 01/25/21 04:00 Nasal Cannula 5.0 01/25/21 04:00 2.0 01/25/21 00:00 70 01/25/21 00:00 97.5 81 18 111/68 (82) 88 01/25/21 00:00 Nasal Cannula 5.0 01/24/21 20:54 67 128/71 01/24/21 20:00 65 01/24/21 20:00 98.0 63 18 128/71 (90) 97 01/24/21 20:00 Nasal Cannula 5.0 01/24/21 20:00 2.0 01/24/21 19:40 91 Nasal Cannula 3.0 32 01/24/21 19:40 73 20 91 Nasal Cannula 3.0 32 01/24/21 16:00 Nasal Cannula 5.0 01/24/21 16:00 5.0 01/24/21 15:57 98.2 96 18 116/82 (93) 96 01/24/21 15:42 73 01/24/21 15:35 5.0 01/24/21 13:37 14.0 55 01/24/21 12:00 2.0 01/24/21 12:00 Nasal Cannula 2.0 01/24/21 11:56 97.8 68 18 115/90 (98) 96 01/24/21 11:54 43 Intake and Output 01/24/21 01/25/21 19:00 07:00 Intake Total 480 ml Balance 480 ml Intake Oral 480 ml # Voids 3 1 General Appearance: no acute distress HEENT: atraumatic Respiratory: decreased breath sounds Cardiovascular: normal rate, regular rhythm Abdomen: soft, non tender Musculoskeletal: other - LE edema Current Medications Medications (Trade) Dose Ordered Sig/Della Route PRN Reason Start Time Stop Time Status Last Admin Dose Admin Acetaminophen (Tylenol) 500 mg Q6H PRN ORAL Mild Pain (Pain Scale 1-3) 01/18/21 22:30 02/17/21 22:29 01/23/21 21:12 Albuterol/ Ipratropium (Albuterol/ Ipratropium) 3 ml Q4H PRN HHN Shortness of Breath 01/23/21 10:00 01/28/21 09:59 Allopurinol (allopurinoL) 300 mg DAILY ORAL 01/20/21 11:45 02/19/21 11:44 01/25/21 08:16 Carvedilol (Coreg) 6.25 mg EVERY 12 HOURS ORAL 01/24/21 21:00 02/17/21 20:59 01/25/21 08:16 Clonidine HCl (Catapres Tab) 0.1 mg Q4H PRN ORAL sbp>170 01/18/21 16:15 04/18/21 16:14 Docusate Sodium (Colace) 100 mg THREE TIMES A DAY ORAL 01/19/21 13:00 02/18/21 12:59 01/25/21 08:16 Levothyroxine Sodium (Synthroid) 50 mcg ACBREAKFAST ORAL 01/25/21 06:30 02/22/21 08:59 01/25/21 05:53 Methylprednisolone Sodium Succinate (Solu-MEDROL) 40 mg EVERY 12 HOURS IVP 01/23/21 21:00 04/23/21 20:59 01/25/21 08:16 Pantoprazole (Protonix) 40 mg EVERY 12 HOURS ORAL 01/19/21 21:00 02/18/21 20:59 01/25/21 08:16 Sorbitol (sorbitoL) 30 ml BEDTIME ORAL 01/23/21 21:00 02/22/21 20:59 01/24/21 20:55 Sorbitol (sorbitoL) 60 ml DAILYPRN PRN ORAL constipation 01/24/21 20:45 02/23/21 20:44 Assessment/Plan Assessment/Plan 1. CHF exacerbation with elevated BNP -Cardio following -2D Echo: EF 60-65% - on Lasix, lisinopril, Coreg -> now off lasix given hypotension 2. undiagnosed COPD exacerbation -Patient reports extensive history of smoking, over 30 years -Patient education provided on smoking cessation -Patient denies use of home oxygen -We will continue breathing treatment; now Q4hr - Continue supplemental oxygen -> now on 2L/min nasal O2 3. Respiratory distress, likely secondary to #1 and #2 - Desaturated to 81% on room air this AM; continue supplemental oxygen -Continue steroids... Solu-Medrol 40 mg Q8hr -> will continue to taper; change to PO 4. bilateral lower extremity edema -Negative for DVT on V/D US -SCD and ambulation for DVT prophylaxis -Continue Lasix -> now off Lasix given hypotension 5. Hypothyroidism -On levothyroxine 6. Pulmonary congestion - on Lasix -> now off lasix given hypotension - supplemental oxygen as needed 7. hypotension, likely secondary to diuresis - s/p NS bolus - now off Lasix 8. Nicotine dependence - Pt education on smoking cessation 9. Abd wall hernia - Seen by GI - Needs outpatient colonoscopy per GI We will consult case supervisor for hospital bed and home oxygen. (Patient was seen earlier today. Signature timestamp does not reflect patient encounter time) Darinel Birmingham MD, MD Jan 25, 2021 11:24
[2021-01-25 12:00] VITALS: BP 148/98
--- NOTE | 2021-01-25 12:28 | NUR ---
NURSE NOTES: Noted sating 94% with 2LPM via N/C. O2 decreased to 1LPM via N/C.
--- NOTE | 2021-01-25 12:50 | Infectious Diseases Prog Note ---
Assessment/Plan Assessment/Plan IMPRESSION: 1. COPD with exacerbation. 2. Hypoxemia. 3. Diastolic CHF. 4. Acute renal failure. 5. Morbid obesity. 6. Hypothyroidism. 7. Nicotine dependence. 8. ? sleep apnea RECOMMENDATION: Observe off antibiotic Continue steroids Subjective ROS Limited/Unobtainable: No Constitutional: Reports: no symptoms, other - feels better Respiratory: Reports: shortness of breath, dry cough Gastrointestinal/Abdominal: Reports: constipation Genitourinary: Reports: no symptoms Allergies: Coded Allergies: No Known Allergies (Verified Allergy, Mild, 03/23/10) Objective Last 24 Hour Vital Signs Date Time Temp Pulse Resp B/P (MAP) Pulse Ox O2 Delivery O2 Flow Rate FiO2 01/25/21 12:00 2.0 01/25/21 12:00 74 01/25/21 12:00 Nasal Cannula 2.0 01/25/21 12:00 97.7 77 18 148/98 (115) 94 01/25/21 08:16 74 138/75 01/25/21 08:00 2.0 01/25/21 08:00 65 01/25/21 08:00 97.5 74 18 138/75 (96) 92 01/25/21 08:00 Nasal Cannula 2.0 01/25/21 07:23 95 Nasal Cannula 3.0 32 01/25/21 07:22 77 20 95 Nasal Cannula 3.0 32 01/25/21 04:00 97.2 77 18 136/96 (109) 91 01/25/21 04:00 46 01/25/21 04:00 Nasal Cannula 5.0 01/25/21 04:00 2.0 01/25/21 00:00 70 01/25/21 00:00 97.5 81 18 111/68 (82) 88 01/25/21 00:00 Nasal Cannula 5.0 01/24/21 20:54 67 128/71 01/24/21 20:00 65 01/24/21 20:00 98.0 63 18 128/71 (90) 97 01/24/21 20:00 Nasal Cannula 5.0 01/24/21 20:00 2.0 01/24/21 19:40 91 Nasal Cannula 3.0 32 01/24/21 19:40 73 20 91 Nasal Cannula 3.0 32 01/24/21 16:00 Nasal Cannula 5.0 01/24/21 16:00 5.0 01/24/21 15:57 98.2 96 18 116/82 (93) 96 01/24/21 15:42 73 01/24/21 15:35 5.0 01/24/21 13:37 14.0 55 Height (Feet): 5 Height (Inches): 10.00 Weight (Pounds): 295 General Appearance: other - obese HEENT: mucous membranes moist Respiratory/Chest: lungs clear, other - O2 by nasal cannula Cardiovascular: normal rate Abdomen: soft, non tender Extremities: no edema Neurologic/Psychiatric: alert, responsive Current Medications Medications (Trade) Dose Ordered Sig/Della Route PRN Reason Start Time Stop Time Status Last Admin Dose Admin Acetaminophen (Tylenol) 500 mg Q6H PRN ORAL Mild Pain (Pain Scale 1-3) 01/18/21 22:30 02/17/21 22:29 01/23/21 21:12 Albuterol/ Ipratropium (Albuterol/ Ipratropium) 3 ml Q4H PRN HHN Shortness of Breath 01/23/21 10:00 01/28/21 09:59 Allopurinol (allopurinoL) 300 mg DAILY ORAL 01/20/21 11:45 02/19/21 11:44 01/25/21 08:16 Carvedilol (Coreg) 6.25 mg EVERY 12 HOURS ORAL 01/24/21 21:00 02/17/21 20:59 01/25/21 08:16 Clonidine HCl (Catapres Tab) 0.1 mg Q4H PRN ORAL sbp>170 01/18/21 16:15 04/18/21 16:14 Docusate Sodium (Colace) 100 mg THREE TIMES A DAY ORAL 01/19/21 13:00 02/18/21 12:59 01/25/21 12:06 Levothyroxine Sodium (Synthroid) 50 mcg ACBREAKFAST ORAL 01/25/21 06:30 02/22/21 08:59 01/25/21 05:53 Pantoprazole (Protonix) 40 mg EVERY 12 HOURS ORAL 01/19/21 21:00 02/18/21 20:59 01/25/21 08:16 Prednisone (predniSONE) 20 mg DAILY ORAL 01/25/21 11:30 02/24/21 11:29 01/25/21 12:06 Sorbitol (sorbitoL) 30 ml BEDTIME ORAL 01/23/21 21:00 02/22/21 20:59 01/24/21 20:55 Sorbitol (sorbitoL) 60 ml DAILYPRN PRN ORAL constipation 01/24/21 20:45 02/23/21 20:44 Amilcar Rodriguez MD Jan 25, 2021 12:50
--- NOTE | 2021-01-25 13:42 | Cardiac Electrophysiology PN ---
Assessment/Plan Assessment/Plan 1. Bilateral lower extremity edema and shortness of breath. BNP elevated at 439. Lower extremity duplex showed no evidence of DVT. Echo showed Nl Ejection fraction 65%. Resume Lasix 40 po daily 2. History of hypertension. On carvedilol 6.25 po bid in view of bradycardia 3. History of COPD. 4. Hypothyroidism, now on Synthroid DW RN and Dr. Yang Subjective Subjective Echo EF 65%. Now on 6 liter NC. RN at bedside Objective Last 24 Hour Vital Signs Date Time Temp Pulse Resp B/P (MAP) Pulse Ox O2 Delivery O2 Flow Rate FiO2 01/25/21 12:00 2.0 01/25/21 12:00 74 01/25/21 12:00 Nasal Cannula 2.0 01/25/21 12:00 97.7 77 18 148/98 (115) 94 01/25/21 08:16 74 138/75 01/25/21 08:00 2.0 01/25/21 08:00 65 01/25/21 08:00 97.5 74 18 138/75 (96) 92 01/25/21 08:00 Nasal Cannula 2.0 01/25/21 07:23 95 Nasal Cannula 3.0 32 01/25/21 07:22 77 20 95 Nasal Cannula 3.0 32 01/25/21 04:00 97.2 77 18 136/96 (109) 91 01/25/21 04:00 46 01/25/21 04:00 Nasal Cannula 5.0 01/25/21 04:00 2.0 01/25/21 00:00 70 01/25/21 00:00 97.5 81 18 111/68 (82) 88 01/25/21 00:00 Nasal Cannula 5.0 01/24/21 20:54 67 128/71 01/24/21 20:00 65 01/24/21 20:00 98.0 63 18 128/71 (90) 97 01/24/21 20:00 Nasal Cannula 5.0 01/24/21 20:00 2.0 01/24/21 19:40 91 Nasal Cannula 3.0 32 01/24/21 19:40 73 20 91 Nasal Cannula 3.0 32 01/24/21 16:00 Nasal Cannula 5.0 01/24/21 16:00 5.0 01/24/21 15:57 98.2 96 18 116/82 (93) 96 01/24/21 15:42 73 01/24/21 15:35 5.0 Intake and Output 01/24/21 01/25/21 19:00 07:00 Intake Total 480 ml Balance 480 ml Intake Oral 480 ml # Voids 3 1 Objective HEAD AND NECK: Positive JVD. LUNGS: Decreased breath sounds. CARDIOVASCULAR: Shows regular S1 and S2 with no gallop. ABDOMEN: Soft. EXTREMITIES: 2+ pitting edema. Raffy Garrido MD Jan 25, 2021 13:42
--- NOTE | 2021-01-25 14:19 | Nephrology Progress Note ---
Assessment/Plan Problem List: (1) ABIOLA (acute kidney injury) (2) CHF (congestive heart failure) (3) COPD (chronic obstructive pulmonary disease) (4) UTI (urinary tract infection) (5) Obesity (6) Hypothyroidism Assessment Renal failure: Rising serum creatinine multifactorial. Mainly treatment for CHF with lisinopril and Lasix Congestive heart failure History of hypertension History of COPD Obesity, BMI 42.3 Elevated TSH: Hypothyroidism Plan January 25: No labs drawn today. Clinically stable. Labs ordered. Continue per consultants. January 24: No labs drawn today. Clinically stable. Will check lab tomorrow. Continue per consultants. Medication list reviewed. January 23: Labs reviewed. Renal parameters stable. Continue per consultants. January 22: No labs drawn today. Patient clinically stable. Medication list reviewed. Blood pressure stable. Will check lab tomorrow. January 21: Labs reviewed. Medication list reviewed. Renal parameters and electrolytes improved. Blood pressure stable. 24-hour urine for total protein pending. Heart rate stable. Remains on Synthroid intravenously January 20: Labs reviewed. Medication list reviewed. Serum creatinine 1.4 unchanged. Continue per consultants. Blood pressure dropped as a result Lasix on hold. Allopurinol added. Continue to monitor renal parameters.Discussed [facility] Dr Garrido . Parameters for Coreg and Lisinopril, 24-hour urine collection for total protein ordered. Will change Synthroid to IV for the next few days. Continue to optimize pulmonary and cardiac status Monitor renal parameters electrolytes Start Synthroid Stool softener and gastric support Per orders Subjective ROS Limited/Unobtainable: No Constitutional: Reports: malaise Objective Objective Last 24 Hour Vital Signs Date Time Temp Pulse Resp B/P (MAP) Pulse Ox O2 Delivery O2 Flow Rate FiO2 01/25/21 12:00 2.0 01/25/21 12:00 74 01/25/21 12:00 Nasal Cannula 2.0 01/25/21 12:00 97.7 77 18 148/98 (115) 94 01/25/21 08:16 74 138/75 01/25/21 08:00 2.0 01/25/21 08:00 65 01/25/21 08:00 97.5 74 18 138/75 (96) 92 01/25/21 08:00 Nasal Cannula 2.0 01/25/21 07:23 95 Nasal Cannula 3.0 32 01/25/21 07:22 77 20 95 Nasal Cannula 3.0 32 01/25/21 04:00 97.2 77 18 136/96 (109) 91 01/25/21 04:00 46 01/25/21 04:00 Nasal Cannula 5.0 01/25/21 04:00 2.0 01/25/21 00:00 70 01/25/21 00:00 97.5 81 18 111/68 (82) 88 01/25/21 00:00 Nasal Cannula 5.0 01/24/21 20:54 67 128/71 01/24/21 20:00 65 01/24/21 20:00 98.0 63 18 128/71 (90) 97 01/24/21 20:00 Nasal Cannula 5.0 01/24/21 20:00 2.0 01/24/21 19:40 91 Nasal Cannula 3.0 32 01/24/21 19:40 73 20 91 Nasal Cannula 3.0 32 01/24/21 16:00 Nasal Cannula 5.0 01/24/21 16:00 5.0 01/24/21 15:57 98.2 96 18 116/82 (93) 96 01/24/21 15:42 73 01/24/21 15:35 5.0 Intake and Output 01/24/21 01/25/21 19:00 07:00 Intake Total 480 ml Balance 480 ml Intake Oral 480 ml # Voids 3 1 No labs drawn today Height (Feet): 5 Height (Inches): 10.00 Weight (Pounds): 295 General Appearance: no apparent distress Cardiovascular: normal rate Respiratory/Chest: decreased breath sounds Abdomen: soft Adilson Yang MD Jan 25, 2021 14:19
[2021-01-25 16:00] VITALS: BP 136/92
--- NOTE | 2021-01-25 19:14 | NUR ---
NURSE HAND-OFF REPORT: Important Events on Shift: N/A Patient Status: Stable Diet: cardiac Pending Orders: n/a Pending Results/Labs:n/a Pending MD notification:n/a Latest Vital Signs: Temperature 97.6 , Pulse 77 , B/P 136 /92 , Respiratory Rate 18 , O2 SAT 92 , Room Air, O2 Flow Rate 2.0 . Vital Sign Comment: stable EKG Rhythm: Sinus Rhythm Rhythm change?: N MD Notified?: N - MD Response: Latest Back Fall Score: 45 Fall Risk: High Risk Safety Measures: Call light Within Reach, Bed Alarm Zone 2, Side Rails Side Rails x2, Bed position Low and Locked. Fall Precautions: y Yellow Socks Door Sign Patient Fall Education Report given to LATONIA Cronin.
--- NOTE | 2021-01-25 19:47 | NUR ---
NURSE NOTES: Received report from Min. AVILA x 4, on NC 1 with O2 sat 93%. Denies pain or discomfort. IV site intact and patent. Commode at bedside. No labored breathing. Bed locked, lowest position, alarm on, call light within reach. Will continue to monitor.
[2021-01-25 20:00] VITALS: BP 130/91
[2021-01-25] MEDS: Sorbitol Solution UD 30ml ORAL SCH (20:07)
--- NOTE | 2021-01-25 21:12 | General Progress Note ---
Subjective ROS Limited/Unobtainable: Yes Allergies: Coded Allergies: No Known Allergies (Verified Allergy, Mild, 03/23/10) Objective Last 24 Hour Vital Signs Date Time Temp Pulse Resp B/P (MAP) Pulse Ox O2 Delivery O2 Flow Rate FiO2 01/25/21 20:07 79 130/91 01/25/21 20:00 97.7 77 20 130/91 (104) 93 01/25/21 20:00 78 01/25/21 20:00 2.0 01/25/21 20:00 Nasal Cannula 2.0 01/25/21 16:00 71 01/25/21 16:00 97.6 77 18 136/92 (107) 92 01/25/21 16:00 Nasal Cannula 2.0 01/25/21 16:00 2.0 01/25/21 12:00 2.0 01/25/21 12:00 74 01/25/21 12:00 Nasal Cannula 2.0 01/25/21 12:00 97.7 77 18 148/98 (115) 94 01/25/21 08:16 74 138/75 01/25/21 08:00 2.0 01/25/21 08:00 65 01/25/21 08:00 97.5 74 18 138/75 (96) 92 01/25/21 08:00 Nasal Cannula 2.0 01/25/21 07:23 95 Nasal Cannula 3.0 32 01/25/21 07:22 77 20 95 Nasal Cannula 3.0 32 01/25/21 04:00 97.2 77 18 136/96 (109) 91 01/25/21 04:00 46 01/25/21 04:00 Nasal Cannula 5.0 01/25/21 04:00 2.0 01/25/21 00:00 70 01/25/21 00:00 97.5 81 18 111/68 (82) 88 01/25/21 00:00 Nasal Cannula 5.0 Intake and Output 01/24/21 01/25/21 19:00 07:00 Intake Total 480 ml Balance 480 ml Intake Oral 480 ml # Voids 3 1 Height (Feet): 5 Height (Inches): 10.00 Weight (Pounds): 295 Assessment/Plan Problem List: (1) Cardiomegaly ICD Codes: I51.7 - Cardiomegaly SNOMED: 5347814 (2) COPD (chronic obstructive pulmonary disease) ICD Codes: J44.9 - Chronic obstructive pulmonary disease, unspecified SNOMED: 14263284 (3) CHF (congestive heart failure) ICD Codes: I50.9 - Heart failure, unspecified SNOMED: 83432260 (4) UTI (urinary tract infection) ICD Codes: N39.0 - Urinary tract infection, site not specified SNOMED: 25359102 (5) ABIOLA (acute kidney injury) ICD Codes: N17.9 - Acute kidney failure, unspecified SNOMED: 2213869, 32286623 (6) Obesity ICD Codes: E66.9 - Obesity, unspecified SNOMED: 027160587, 983530141 Status: progressing Assessment/Plan: prn oxygen chf is improving copd is improving not hypoxic abx per id arf stable uti Ragini Naylor MD Jan 25, 2021 21:12
[2021-01-26] VITALS: BP 130/91
--- NOTE | 2021-01-26 00:24 | NUR ---
NURSE NOTES: Pt sleeping in bed, no acute distress noted, O2 sat 94%, Vitals stable
[2021-01-26 04:00] VITALS: BP 136/95
--- NOTE | 2021-01-26 04:50 | NUR ---
NURSE NOTES: Pt sleeping and tolerating NC 1L with 93% O2 sat. No acute distress noted.
--- NOTE | 2021-01-26 06:51 | NUR ---
NURSE HAND-OFF REPORT: Important Events on Shift:none Patient Status: stable Diet: cardiac Pending Orders: [] Pending Results/Labs:[] Pending MD notification:[] Latest Vital Signs: Temperature 97.9 , Pulse 80 , B/P 136 /95 , Respiratory Rate 20 , O2 SAT 93 , Room Air, O2 Flow Rate 2.0 . Vital Sign Comment: [] EKG Rhythm: Sinus Rhythm Rhythm change?: N MD Notified?: N - MD Response: Latest Back Fall Score: 45 Fall Risk: High Risk Safety Measures: Call light Within Reach, Bed Alarm Zone 2, Side Rails Side Rails x2, Bed position Low and Locked. Fall Precautions: Yellow Socks Door Sign Patient Fall Education Addendum: 01/26/21 at 0704 by KSENIA GRAHAM RN RN Report given to Min
--- NOTE | 2021-01-26 07:00 | NUR ---
NURSE NOTES: Received report from LATONIA Kerns. pt in bed awake and orientedx3. Denied pain and SOB. On 1LPM via N/C and sating 95%. IV in right hand 20g SL patent and asymptomatic. Side railsx2 up for safety. HOB elevated with 30 degree. Call light within easy reach. Bed side commode at the bedside. Noted sating 91% on room air but pt wants to keep oxygen at this time. Bed locked and lowest position. Will continue plan of care.
[2021-01-26 07:48] VITALS: BP 120/90
[2021-01-26 08:05] LABS: BASOPHILS % (AUTO) 0.6 % (0.0-2.0); EOSINOPHILS % (AUTO) 0.9 % (0.0-3.0); HEMATOCRIT 40.1 % (37.0-47.0); HEMOGLOBIN 12.4 G/DL (12.0-16.0); LYMPHOCYTES % (AUTO) 27.1 % (20.0-45.0); MEAN CORPUSCULAR VOLUME 109 FL (80-99); MONOCYTES % (AUTO) 5.7 % (1.0-10.0); NEUTROPHILS % (AUTO) 65.6 % (45.0-75.0); PLATELET COUNT 328 K/UL (150-450); RED BLOOD COUNT 3.67 M/UL (4.20-5.40); RED CELL DISTRIBUTION WIDTH 14.7 % (11.6-14.8); WHITE BLOOD COUNT 7.9 K/UL (4.8-10.8)
[2021-01-26] MEDS: Docusate 100mg cap ORAL SCH ×3 (08:13→17:22)
[2021-01-26] MEDS: Carvedilol 6.25mg Tab ORAL SCH ×2 (08:14→20:06)
[2021-01-26] MEDS: Furosemide 40mg tab ORAL SCH (08:14)
[2021-01-26 08:41] LABS: ALANINE AMINOTRANSFERASE 323 U/L (12-78); ALBUMIN 3.9 G/DL (3.4-5.0); ALBUMIN/GLOBULIN RATIO 1.2 (1.0-2.7); ALKALINE PHOSPHATASE 85 U/L (46-116); ANION GAP 5 mmol/L (5-15); ASPARTATE AMINO TRANSFERASE 224 U/L (15-37); BILIRUBIN,TOTAL 0.5 MG/DL (0.2-1.0); BLOOD UREA NITROGEN 30 mg/dL (7-18); CALCIUM 9.1 MG/DL (8.5-10.1); CARBON DIOXIDE 35 MMOL/L (21-32); CHLORIDE 105 MMOL/L (98-107); PHOSPHORUS 3.3 MG/DL (2.5-4.9); POTASSIUM 3.9 MMOL/L (3.5-5.1); SODIUM 145 MMOL/L (136-145)
--- NOTE | 2021-01-26 09:25 | NUR ---
RD ASSESSMENT & RECOMMENDATIONS SEE CARE ACTIVITY FOR COMPLETE ASSESSMENT DAILY ESTIMATED NEEDS: Needs based on Pulmonary, cardiac, obese 83kg abw 20-25 kcals/kg 7802-9162 total kcals 1-1.5 g protein/kg 83-125 g total protein Fluid per MD, on lasix NUTRITION DIAGNOSIS: Decreased fat and sodium needs r/t cardiac history and obesity as evidenced by pt w/ CHF, on lasix, BL leg 3+ edema, BMI>40, 189% of ideal body weight. CURRENT DIET: Cardiac PO DIET RECOMMENDATIONS: Continue Cardiac diet ADDITIONAL RECOMMENDATIONS: 1) Rec accuchecks/ bed side BG checks w/ niss Add CCHO LOW diet w/ elevated BG 2) Obtain calibrated bed scale wts while on lasix 3) Add B-complex w/ lasix, monitor lytes 4) Monitor resp status and continued good po intake 5) Bowel regimen, laxatives (last bm /)
--- NOTE | 2021-01-26 09:26 | Pulmonology Progress Note ---
Subjective ROS Limited/Unobtainable: Yes Interval Events: hypotension -> now off lasix Constitutional: Reports: no symptoms, other - feels better HEENT: Repors: no symptoms Respiratory: Reports: shortness of breath Cardiovascular: Reports: no symptoms Gastrointestinal/Abdominal: Reports: constipation Allergies: Coded Allergies: No Known Allergies (Verified Allergy, Mild, 03/23/10) Objective Last 24 Hour Vital Signs Date Time Temp Pulse Resp B/P (MAP) Pulse Ox O2 Delivery O2 Flow Rate FiO2 01/26/21 08:14 76 120/90 01/26/21 08:00 Nasal Cannula 1.0 01/26/21 08:00 1.0 01/26/21 08:00 69 01/26/21 07:48 97.1 76 20 120/90 (100) 94 01/26/21 07:19 96 Nasal Cannula 2.0 28 01/26/21 07:16 81 20 96 Nasal Cannula 2.0 28 01/26/21 04:00 76 01/26/21 04:00 2.0 01/26/21 04:00 Nasal Cannula 1.0 01/26/21 04:00 97.9 80 20 136/95 (109) 93 01/26/21 00:00 96.8 73 22 130/91 (104) 94 01/26/21 00:00 Nasal Cannula 1.0 01/26/21 00:00 79 01/25/21 20:19 79 20 94 Nasal Cannula 2.0 28 01/25/21 20:19 94 Nasal Cannula 2.0 28 01/25/21 20:07 79 130/91 01/25/21 20:00 97.7 77 20 130/91 (104) 93 01/25/21 20:00 78 01/25/21 20:00 2.0 01/25/21 20:00 Nasal Cannula 2.0 01/25/21 16:00 71 01/25/21 16:00 97.6 77 18 136/92 (107) 92 01/25/21 16:00 Nasal Cannula 2.0 01/25/21 16:00 2.0 01/25/21 12:00 2.0 01/25/21 12:00 74 01/25/21 12:00 Nasal Cannula 2.0 01/25/21 12:00 97.7 77 18 148/98 (115) 94 Intake and Output 01/25/21 01/26/21 19:00 07:00 Intake Total 200 ml Balance 200 ml Intake Oral 200 ml # Voids 2 2 General Appearance: no acute distress HEENT: atraumatic Respiratory: decreased breath sounds Cardiovascular: normal rate, regular rhythm Abdomen: soft, non tender Musculoskeletal: other - LE edema Laboratory Tests 01/26/21 07:30: White Blood Count 7.9, Red Blood Count 3.67L, Hemoglobin 12.4, Hematocrit 40.1, Mean Corpuscular Volume 109H, Mean Corpuscular Hemoglobin 33.7H, Mean Corpuscular Hemoglobin Concent 30.8L, Red Cell Distribution Width 14.7, Platelet Count 328, Mean Platelet Volume 6.5, Neutrophils (%) (Auto) 65.6, Lymphocytes (%) (Auto) 27.1, Monocytes (%) (Auto) 5.7, Eosinophils (%) (Auto) 0.9, Basophils (%) (Auto) 0.6, Sodium Level 145, Potassium Level 3.9, Chloride Level 105, Carbon Dioxide Level 35H, Anion Gap 5, Blood Urea Nitrogen 30H, Creatinine 1.0, Estimat Glomerular Filtration Rate > 60, Glucose Level 109H, Calcium Level 9.1, Phosphorus Level 3.3, Magnesium Level 2.3, Total Bilirubin 0.5, Aspartate Amino Transf (AST/SGOT) 224H, Alanine Aminotransferase (ALT/SGPT) 323H, Alkaline Cameron sphatase 85, C-Reactive Protein, Quantitative < 0.4, Pro-B-Type Natriuretic Peptide 4312H, Total Protein 7.2, Albumin 3.9, Globulin 3.3, Albumin/Globulin Ratio 1.2 Current Medications Medications (Trade) Dose Ordered Sig/Della Route PRN Reason Start Time Stop Time Status Last Admin Dose Admin Acetaminophen (Tylenol) 500 mg Q6H PRN ORAL Mild Pain (Pain Scale 1-3) 01/18/21 22:30 02/17/21 22:29 01/23/21 21:12 Albuterol/ Ipratropium (Albuterol/ Ipratropium) 3 ml Q4H PRN HHN Shortness of Breath 01/23/21 10:00 01/28/21 09:59 Allopurinol (allopurinoL) 300 mg DAILY ORAL 01/20/21 11:45 02/19/21 11:44 01/26/21 08:14 Carvedilol (Coreg) 6.25 mg EVERY 12 HOURS ORAL 01/24/21 21:00 02/17/21 20:59 01/26/21 08:14 Clonidine HCl (Catapres Tab) 0.1 mg Q4H PRN ORAL sbp>170 01/18/21 16:15 04/18/21 16:14 Docusate Sodium (Colace) 100 mg THREE TIMES A DAY ORAL 01/19/21 13:00 02/18/21 12:59 01/26/21 08:13 Furosemide (Lasix) 40 mg DAILY ORAL 01/26/21 09:00 02/25/21 08:59 01/26/21 08:14 Levothyroxine Sodium (Synthroid) 50 mcg ACBREAKFAST ORAL 01/25/21 06:30 02/22/21 08:59 01/26/21 05:49 Pantoprazole (Protonix) 40 mg EVERY 12 HOURS ORAL 01/19/21 21:00 02/18/21 20:59 01/26/21 08:14 Prednisone (predniSONE) 20 mg DAILY ORAL 01/25/21 11:30 02/24/21 11:29 01/26/21 08:14 Sorbitol (sorbitoL) 30 ml BEDTIME ORAL 01/23/21 21:00 02/22/21 20:59 01/25/21 20:07 Sorbitol (sorbitoL) 60 ml DAILYPRN PRN ORAL constipation 01/24/21 20:45 02/23/21 20:44 Assessment/Plan Assessment/Plan 1. CHF exacerbation with elevated BNP -Cardio following -2D Echo: EF 60-65% - on Lasix, lisinopril, Coreg -> now off lasix given hypotension 2. undiagnosed COPD exacerbation -Patient reports extensive history of smoking, over 30 years -Patient education provided on smoking cessation -Patient denies use of home oxygen -We will continue breathing treatment; now Q4hr - Continue supplemental oxygen -> now on 2L/min nasal O2 3. Respiratory distress, likely secondary to #1 and #2 - Desaturated to 81% on room air this AM; continue supplemental oxygen -Continue steroids... Solu-Medrol 40 mg Q8hr -> will continue to taper; change to PO 4. bilateral lower extremity edema -Negative for DVT on V/D US -SCD and ambulation for DVT prophylaxis -Continue Lasix -> now off Lasix given hypotension 5. Hypothyroidism -On levothyroxine 6. Pulmonary congestion - on Lasix -> now off lasix given hypotension - supplemental oxygen as needed 7. hypotension, likely secondary to diuresis - s/p NS bolus - now off Lasix 8. Nicotine dependence - Pt education on smoking cessation 9. Abd wall hernia - Seen by GI - Needs outpatient colonoscopy per GI We will consult caser for hospital bed and home oxygen. (Patient was seen earlier today. Signature timestamp does not reflect patient encounter time) Darinel Birmingham MD, MD Jan 26, 2021 09:26
--- NOTE | 2021-01-26 09:35 | General Progress Note ---
Subjective ROS Limited/Unobtainable: No Allergies: Coded Allergies: No Known Allergies (Verified Allergy, Mild, 03/23/10) Objective Last 24 Hour Vital Signs Date Time Temp Pulse Resp B/P (MAP) Pulse Ox O2 Delivery O2 Flow Rate FiO2 01/26/21 08:14 76 120/90 01/26/21 08:00 Nasal Cannula 1.0 01/26/21 08:00 1.0 01/26/21 08:00 69 01/26/21 07:48 97.1 76 20 120/90 (100) 94 01/26/21 07:19 96 Nasal Cannula 2.0 28 01/26/21 07:16 81 20 96 Nasal Cannula 2.0 28 01/26/21 04:00 76 01/26/21 04:00 2.0 01/26/21 04:00 Nasal Cannula 1.0 01/26/21 04:00 97.9 80 20 136/95 (109) 93 01/26/21 00:00 96.8 73 22 130/91 (104) 94 01/26/21 00:00 Nasal Cannula 1.0 01/26/21 00:00 79 01/25/21 20:19 79 20 94 Nasal Cannula 2.0 28 01/25/21 20:19 94 Nasal Cannula 2.0 28 01/25/21 20:07 79 130/91 01/25/21 20:00 97.7 77 20 130/91 (104) 93 01/25/21 20:00 78 01/25/21 20:00 2.0 01/25/21 20:00 Nasal Cannula 2.0 01/25/21 16:00 71 01/25/21 16:00 97.6 77 18 136/92 (107) 92 01/25/21 16:00 Nasal Cannula 2.0 01/25/21 16:00 2.0 01/25/21 12:00 2.0 01/25/21 12:00 74 01/25/21 12:00 Nasal Cannula 2.0 01/25/21 12:00 97.7 77 18 148/98 (115) 94 Intake and Output 01/25/21 01/26/21 19:00 07:00 Intake Total 200 ml Balance 200 ml Intake Oral 200 ml # Voids 2 2 Laboratory Tests 01/26/21 07:30: White Blood Count 7.9, Red Blood Count 3.67L, Hemoglobin 12.4, Hematocrit 40.1, Mean Corpuscular Volume 109H, Mean Corpuscular Hemoglobin 33.7H, Mean Corpuscular Hemoglobin Concent 30.8L, Red Cell Distribution Width 14.7, Platelet Count 328, Mean Platelet Volume 6.5, Neutrophils (%) (Auto) 65.6, Lymphocytes (%) (Auto) 27.1, Monocytes (%) (Auto) 5.7, Eosinophils (%) (Auto) 0.9, Basophils (%) (Auto) 0.6, Sodium Level 145, Potassium Level 3.9, Chloride Level 105, Carbon Dioxide Level 35H, Anion Gap 5, Blood Urea Nitrogen 30H, Creatinine 1.0, Estimat Glomerular Filtration Rate > 60, Glucose Level 109H, Calcium Level 9.1, Phosphorus Level 3.3, Magnesium Level 2.3, Total Bilirubin 0.5, Aspartate Amino Transf (AST/SGOT) 224H, Alanine Aminotransferase (ALT/SGPT) 323H, Alkaline Phosphatase 85, C-Reactive Protein, Quantitative < 0.4, Pro-B-Type Natriuretic Peptide 4312H, Total Protein 7.2, Albumin 3.9, Globulin 3.3, Albumin/Globulin Ratio 1.2 Height (Feet): 5 Height (Inches): 10.00 Weight (Pounds): 295 General Appearance: no apparent distress EENT: PERRL/EOMI Neck: supple Cardiovascular: normal rate Respiratory/Chest: decreased breath sounds Abdomen: hypoactive bowel sounds Extremities: non-tender Assessment/Plan Status: progressing Assessment/Plan: Assessment/Plan Status: progressing Assessment/Plan: Assessment - chronic constipation - HTN - Obesity - hypothyroid - hyperlipidemia - abd wall hernia Recommendations - Sorbitol nightly, and PRN doses - po as tolerated - OOB - outpatient colonoscopy Michele Wu MD Jan 26, 2021 09:35
[2021-01-26 12:00] VITALS: BP 130/92
--- NOTE | 2021-01-26 12:43 | NUR ---
CASE MANAGEMENT:REVIEW 01/26/21 SI: CHF EXACERBATION. RESPIRATORY DISTRESS 97.0 72 20 130/92 92% ON 1L/NC CO2+35 BUN+30 AST/ALT+224/323 IS: LASIX PO QD PREDNISONE PO QD SYNTHROID PO QAM COREG PO Q12 SORBITOL PO QHS ALLOPURINOL PO QD PROTONIX PO Q12 : STEP DOWN UNIT DCP: FROM HOME
--- NOTE | 2021-01-26 15:51 | General Progress Note ---
Subjective ROS Limited/Unobtainable: Yes Allergies: Coded Allergies: No Known Allergies (Verified Allergy, Mild, 03/23/10) Objective Last 24 Hour Vital Signs Date Time Temp Pulse Resp B/P (MAP) Pulse Ox O2 Delivery O2 Flow Rate FiO2 01/26/21 12:00 97.0 72 20 130/92 (105) 92 01/26/21 12:00 1.0 01/26/21 12:00 72 01/26/21 12:00 Nasal Cannula 1.0 01/26/21 08:14 76 120/90 01/26/21 08:00 Nasal Cannula 1.0 01/26/21 08:00 1.0 01/26/21 08:00 69 01/26/21 07:48 97.1 76 20 120/90 (100) 94 01/26/21 07:19 96 Nasal Cannula 2.0 28 01/26/21 07:16 81 20 96 Nasal Cannula 2.0 28 01/26/21 04:00 76 01/26/21 04:00 2.0 01/26/21 04:00 Nasal Cannula 1.0 01/26/21 04:00 97.9 80 20 136/95 (109) 93 01/26/21 00:00 96.8 73 22 130/91 (104) 94 01/26/21 00:00 Nasal Cannula 1.0 01/26/21 00:00 79 01/25/21 20:19 79 20 94 Nasal Cannula 2.0 28 01/25/21 20:19 94 Nasal Cannula 2.0 28 01/25/21 20:07 79 130/91 01/25/21 20:00 97.7 77 20 130/91 (104) 93 01/25/21 20:00 78 01/25/21 20:00 2.0 01/25/21 20:00 Nasal Cannula 2.0 01/25/21 16:00 71 01/25/21 16:00 97.6 77 18 136/92 (107) 92 01/25/21 16:00 Nasal Cannula 2.0 01/25/21 16:00 2.0 Intake and Output0 01/25/21 01/26/21 19:00 07:00 Intake Total 200 ml Balance 200 ml Intake Oral 200 ml # Voids 2 2 Laboratory Tests 01/26/21 07:30: White Blood Count 7.9, Red Blood Count 3.67L, Hemoglobin 12.4, Hematocrit 40.1, Mean Corpuscular Volume 109H, Mean Corpuscular Hemoglobin 33.7H, Mean Corpuscular Hemoglobin Concent 30.8L, Red Cell Distribution Width 14.7, Platelet Count 328, Mean Platelet Volume 6.5, Neutrophils (%) (Auto) 65.6, Lymphocytes (%) (Auto) 27.1, Monocytes (%) (Auto) 5.7, Eosinophils (%) (Auto) 0.9, Basophils (%) (Auto) 0.6, Sodium Level 145, Potassium Level 3.9, Chloride Level 105, Carbon Dioxide Level 35H, Anion Gap 5, Blood Urea Nitrogen 30H, Creatinine 1.0, Estimat Glomerular Filtration Rate > 60, Glucose Level 109H, Calcium Level 9.1, Phosphorus Level 3.3, Magnesium Level 2.3, Total Bilirubin 0.5, Aspartate Amino Transf (AST/SGOT) 224H, Alanine Aminotransferase (ALT/SGPT) 323H, Alkaline Phosphatase 85, C-Reactive Protein, Quantitative < 0.4, Pro-B-Type Natriuretic Peptide 4312H, Total Protein 7.2, Albumin 3.9, Globulin 3.3, Albumin/Globulin Ratio 1.2 Height (Feet): 5 Height (Inches): 10.00 Weight (Pounds): 295 Assessment/Plan Problem List: (1) Cardiomegaly ICD Codes: I51.7 - Cardiomegaly SNOMED: 3489714 (2) COPD (chronic obstructive pulmonary disease) ICD Codes: J44.9 - Chronic obstructive pulmonary disease, unspecified SNOMED: 25678702 (3) CHF (congestive heart failure) ICD Codes: I50.9 - Heart failure, unspecified SNOMED: 42349845 (4) UTI (urinary tract infection) ICD Codes: N39.0 - Urinary tract infection, site not specified SNOMED: 58224810 (5) ABIOLA (acute kidney injury) ICD Codes: N17.9 - Acute kidney failure, unspecified SNOMED: 1171314, 77827408 (6) Obesity ICD Codes: E66.9 - Obesity, unspecified SNOMED: 540184643, 162028893 Status: progressing Assessment/Plan: no fever no wheezing chf and copd ecac not hypoxic afgter arf stable uti Ragini Naylor MD Jan 26, 2021 15:51
[2021-01-26 16:00] VITALS: BP 142/96
--- NOTE | 2021-01-26 16:25 | Nephrology Progress Note ---
Assessment/Plan Problem List: (1) ABIOLA (acute kidney injury) (2) CHF (congestive heart failure) (3) COPD (chronic obstructive pulmonary disease) (4) UTI (urinary tract infection) (5) Obesity (6) Hypothyroidism Assessment Renal failure: Rising serum creatinine multifactorial. Mainly treatment for CHF with lisinopril and Lasix Congestive heart failure History of hypertension History of COPD Obesity, BMI 42.3 Elevated TSH: Hypothyroidism Plan January 26: Labs reviewed. Renal parameters stable. Clinically stable. Continue per consultants. January 25: No labs drawn today. Clinically stable. Labs ordered. Continue per consultants. January 24: No labs drawn today. Clinically stable. Will check lab tomorrow. Continue per consultants. Medication list reviewed. January 23: Labs reviewed. Renal parameters stable. Continue per consultants. January 22: No labs drawn today. Patient clinically stable. Medication list reviewed. Blood pressure stable. Will check lab tomorrow. January 21: Labs reviewed. Medication list reviewed. Renal parameters and electrolytes improved. Blood pressure stable. 24-hour urine for total protein pending. Heart rate stable. Remains on Synthroid intravenously January 20: Labs reviewed. Medication list reviewed. Serum creatinine 1.4 unchanged. Continue per consultants. Blood pressure dropped as a result Lasix on hold. Allopurinol added. Continue to monitor renal parameters.Discussed with Dr Garrido . Parameters for Coreg and Lisinopril, 24-hour urine collection for total protein ordered. Will change Synthroid to IV for the next few days. Continue to optimize pulmonary and cardiac status Monitor renal parameters electrolytes Start Synthroid Stool softener and gastric support Per orders Subjective ROS Limited/Unobtainable: No Constitutional: Reports: malaise, weakness Objective Objective Last 24 Hour Vital Signs Date Time Temp Pulse Resp B/P (MAP) Pulse Ox O2 Delivery O2 Flow Rate FiO2 01/26/21 16:00 1.5 01/26/21 16:00 Nasal Cannula 1.5 01/26/21 12:00 97.0 72 20 130/92 (105) 92 01/26/21 12:00 1.0 01/26/21 12:00 72 01/26/21 12:00 Nasal Cannula 1.0 01/26/21 08:14 76 120/90 01/26/21 08:00 Nasal Cannula 1.0 01/26/21 08:00 1.0 01/26/21 08:00 69 3/7/21 07:48 97.1 76 20 120/90 (100) 94 01/26/21 07:19 96 Nasal Cannula 2.0 28 01/26/21 07:16 81 20 96 Nasal Cannula 2.0 28 01/26/21 04:00 76 01/26/21 04:00 2.0 01/26/21 04:00 Nasal Cannula 1.0 01/26/21 04:00 97.9 80 20 136/95 (109) 93 01/26/21 00:00 96.8 73 22 130/91 (104) 94 01/26/21 00:00 Nasal Cannula 1.0 01/26/21 00:00 79 01/25/21 20:19 79 20 94 Nasal Cannula 2.0 28 01/25/21 20:19 94 Nasal Cannula 2.0 28 01/25/21 20:07 79 130/91 01/25/21 20:00 97.7 77 20 130/91 (104) 93 01/25/21 20:00 78 01/25/21 20:00 2.0 01/25/21 20:00 Nasal Cannula 2.0 Intake and Output 01/25/21 01/26/21 19:00 07:00 Intake Total 200 ml Balance 200 ml Intake Oral 200 ml # Voids 2 2 Current Medications Medications (Trade) Dose Ordered Sig/Della Route PRN Reason Start Time Stop Time Status Last Admin Dose Admin Acetaminophen (Tylenol) 500 mg Q6H PRN ORAL Mild Pain (Pain Scale 1-3) 01/18/21 22:30 02/17/21 22:29 01/23/21 21:12 Albuterol/ Ipratropium (Albuterol/ Ipratropium) 3 ml Q4H PRN HHN Shortness of Breath 01/23/21 10:00 01/28/21 09:59 Allopurinol (allopurinoL) 300 mg DAILY ORAL 01/20/21 11:45 02/19/21 11:44 01/26/21 08:14 Carvedilol (Coreg) 6.25 mg EVERY 12 HOURS ORAL 01/24/21 21:00 02/17/21 20:59 01/26/21 08:14 Clonidine HCl (Catapres Tab) 0.1 mg Q4H PRN ORAL sbp>170 01/18/21 16:15 5/28/21 16:14 Docusate Sodium (Colace) 100 mg THREE TIMES A DAY ORAL 01/19/21 13:00 02/18/21 12:59 01/26/21 12:36 Furosemide (Lasix) 40 mg DAILY ORAL 01/26/21 09:00 02/25/21 08:59 01/26/21 08:14 Levothyroxine Sodium (Synthroid) 50 mcg ACBREAKFAST ORAL 01/25/21 06:30 02/22/21 08:59 01/26/21 05:49 Pantoprazole (Protonix) 40 mg EVERY 12 HOURS ORAL 01/19/21 21:00 02/18/21 20:59 01/26/21 08:14 Prednisone (predniSONE) 20 mg DAILY ORAL 01/25/21 11:30 02/24/21 11:29 01/26/21 08:14 Sorbitol (sorbitoL) 30 ml BEDTIME ORAL 01/23/21 21:00 02/22/21 20:59 01/25/21 20:07 Sorbitol (sorbitoL) 60 ml DAILYPRN PRN ORAL constipation 01/24/21 20:45 02/23/21 20:44 Laboratory Tests 01/26/21 07:30: White Blood Count 7.9, Red Blood Count 3.67L, Hemoglobin 12.4, Hematocrit 40.1, Mean Corpuscular Volume 109H, Mean Corpuscular Hemoglobin 33.7H, Mean Corpus cular Hemoglobin Concent 30.8L, Red Cell Distribution Width 14.7, Platelet Count 328, Mean Platelet Volume 6.5, Neutrophils (%) (Auto) 65.6, Lymphocytes (%) (Auto) 27.1, Monocytes (%) (Auto) 5.7, Eosinophils (%) (Auto) 0.9, Basophils (%) (Auto) 0.6, Sodium Level 145, Potassium Level 3.9, Chloride Level 105, Carbon Dioxide Level 35H, Anion Gap 5, Blood Urea Nitrogen 30H, Creatinine 1.0, Estimat Glomerular Filtration Rate > 60, Glucose Level 109H, Calcium Level 9.1, Phosphorus Level 3.3, Magnesium Level 2.3, Total Bilirubin 0.5, Aspartate Amino Transf (AST/SGOT) 224H, Alanine Aminotransferase (ALT/SGPT) 323H, Alkaline Phosphatase 85, C-Reactive Protein, Quantitative < 0.4, Pro-B-Type Natriuretic Peptide 4312H, Total Protein 7.2, Albumin 3.9, Globulin 3.3, Albumin/Globulin Ratio 1.2 Height (Feet): 5 Height (Inches): 10.00 Weight (Pounds): 295 General Appearance: no apparent distress Cardiovascular: normal rate Respiratory/Chest: decreased breath sounds Abdomen: distended Adilson Yang MD Jan 26, 2021 16:25
--- NOTE | 2021-01-26 19:09 | NUR ---
NURSE HAND-OFF REPORT: Important Events on Shift:n/a Patient Status: stable Diet: cardiac Pending Orders: n/a Pending Results/Labs:n/a Pending MD notification:n/a Latest Vital Signs: Temperature 97.2 , Pulse 76 , B/P 142 /96 , Respiratory Rate 20 , O2 SAT 92 , Room Air, O2 Flow Rate 1.5 . Vital Sign Comment: stable EKG Rhythm: Sinus Rhythm Rhythm change?: N MD Notified?: N - MD Response: Latest Back Fall Score: 45 Fall Risk: High Risk Safety Measures: Call light Within Reach, Bed Alarm Zone 2, Side Rails Side Rails x2, Bed position Low and Locked. Fall Precautions: Yellow Socks Door Sign Patient Fall Education Report given to LATONIA Olson.
--- NOTE | 2021-01-26 19:10 | NUR ---
NURSE NOTES: Report received from LATONIA Mckeon. Upon assessment pt is A/Ox4. Appears disheveled, with flat affect. Vitals WNL. Saturating 94-96% on 2L N/C. 5-lead EKG NSR. Right hand #20 patent and intact. Observed with hernia on abdominal area. Bed kept in lowest and locked position. Side rails up x3. Call light within reach. Will monitor.
[2021-01-26 20:00] VITALS: BP 115/76
[2021-01-26] MEDS: Sorbitol Solution UD 30ml ORAL SCH (20:05)
[2021-01-27] VITALS: BP 122/54
[2021-01-27 04:00] VITALS: BP 116/77
--- NOTE | 2021-01-27 04:00 | NUR ---
NURSE NOTES: Pt states that "the water pill is helping her breathe better." Reminded pt to be careful when she ambulates from commode to bed. No distress noted. Will monitor.
--- NOTE | 2021-01-27 05:47 | NUR ---
NURSE NOTES: Pt c/o pain on her left buttocks. Area appears bruised and red. Applied optifoam and triad. Will monitor.
--- NOTE | 2021-01-27 06:48 | NUR ---
NURSE HAND-OFF REPORT: Important Events on Shift: No changes; pt c/o bruising on her left buttocks Patient Status: Stable Diet: Low Fat Pending Orders: Pending Results/Labs: Pending MD notification: Latest Vital Signs: Temperature 97.4 , Pulse 53 , B/P 116 /77 , Respiratory Rate 20 , O2 SAT 96 , Room Air, O2 Flow Rate 2.0 . Vital Sign Comment: WNL EKG Rhythm: Sinus Rhythm Rhythm change?: N MD Notified?: N - MD Response: Latest Back Fall Score: 45 Fall Risk: High Risk Safety Measures: Call light Within Reach, Bed Alarm Zone 2, Side Rails Side Rails x2, Bed position Low and Locked. Fall Precautions: Yellow Socks Door Sign Patient Fall Education Report given to Fam Mckeon.
--- NOTE | 2021-01-27 07:25 | NUR ---
NURSE NOTES: Received patient report from LATONIA Cody. Patient is AO x4. No pain or discomfort noted at this time. Patient on NC on 2L satting at 95%. Patient with R hand 20G, patent and intact with no signs of infiltration or infection. Bed in lowest position, locked with side rails x2 up. Call light within reach.
[2021-01-27 08:00] VITALS: BP 115/70
[2021-01-27] MEDS: Furosemide 40mg tab ORAL SCH (08:51)
[2021-01-27] MEDS: Docusate 100mg cap ORAL SCH ×3 (08:52→18:21)
[2021-01-27] MEDS: Carvedilol 6.25mg Tab ORAL SCH ×2 (08:52→20:48)
--- NOTE | 2021-01-27 10:48 | Nephrology Progress Note ---
Assessment/Plan Problem List: (1) ABIOLA (acute kidney injury) (2) CHF (congestive heart failure) (3) COPD (chronic obstructive pulmonary disease) (4) UTI (urinary tract infection) (5) Obesity (6) Hypothyroidism Assessment Renal failure: Rising serum creatinine multifactorial. Mainly treatment for CHF with lisinopril and Lasix Congestive heart failure History of hypertension History of COPD Obesity, BMI 42.3 Elevated TSH: Hypothyroidism Plan January 27: No labs drawn today. Renal parameters stable. Continue per consultants. January 26: Labs reviewed. Renal parameters stable. Clinically stable. Continue per consultants. January 25: No labs drawn today. Clinically stable. Labs ordered. Continue per consultants. January 24: No labs drawn today. Clinically stable. Will check lab tomorrow. Continue per consultants. Medication list reviewed. January 23: Labs reviewed. Renal parameters stable. Continue per consultants. January 22: No labs drawn today. Patient clinically stable. Medication list reviewed. Blood pressure stable. Will check lab tomorrow. January 21: Labs reviewed. Medication list reviewed. Renal parameters and electrolytes improved. Blood pressure stable. 24-hour urine for total protein pending. Heart rate stable. Remains on Synthroid intravenously January 20: Labs reviewed. Medication list reviewed. Serum creatinine 1.4 unchanged. Continue per consultants. Blood pressure dropped as a result Lasix on hold. Allopurinol added. Continue to monitor renal parameters.Discussed with Dr Garrido . Parameters for Coreg and Lisinopril, 24-hour urine collection for total protein ordered. Will change Synthroid to IV for the next few days. Continue to optimize pulmonary and cardiac status Monitor renal parameters electrolytes Start Synthroid Stool softener and gastric support Per orders Subjective ROS Limited/Unobtainable: No Constitutional: Reports: malaise Objective Objective Last 24 Hour Vital Signs Date Time Temp Pulse Resp B/P (MAP) Pulse Ox O2 Delivery O2 Flow Rate FiO2 01/27/21 08:52 72 114/75 01/27/21 08:02 72 01/27/21 08:00 2.0 01/27/21 08:00 Nasal Cannula 1.5 01/27/21 08:00 98.0 68 20 115/70 (85) 97 01/27/21 04:00 97.4 53 20 116/77 (90) 96 01/27/21 04:00 2.0 01/27/21 04:00 Nasal Cannula 1.5 01/27/21 04:00 73 01/27/21 00:00 Nasal Cannula 1.5 01/27/21 00:00 2.0 01/27/21 00:00 97.0 58 18 122/54 (76) 95 01/26/21 23:27 69 01/26/21 20:31 65 01/26/21 20:06 72 115/76 01/26/21 20:00 97.9 71 18 115/76 (89) 96 01/26/21 20:00 Nasal Cannula 1.5 01/26/21 20:00 2.0 01/26/21 19:26 95 Nasal Cannula 2.0 28 01/26/21 19:26 82 20 95 Nasal Cannula 2.0 28 01/26/21 16:00 97.2 76 20 142/96 (111) 92 01/26/21 16:00 1.5 01/26/21 16:00 Nasal Cannula 1.5 01/26/21 16:00 67 01/26/21 12:00 97.0 72 20 130/92 (105) 92 01/26/21 12:00 1.0 01/26/21 12:00 72 01/26/21 12:00 Nasal Cannula 1.0 Intake and Output 01/26/21 01/27/21 19:00 07:00 Intake Total 300 ml 600 ml Balance 300 ml 600 ml Intake Oral 300 ml 600 ml # Voids 3 2 # Bowel Movements 2 3 Current Medications Medications (Trade) Dose Ordered Sig/Della Route PRN Reason Start Time Stop Time Status Last Admin Dose Admin Acetaminophen (Tylenol) 500 mg Q6H PRN ORAL Mild Pain (Pain Scale 1-3) 01/18/21 22:30 02/17/21 22:29 01/23/21 21:12 Albuterol/ Ipratropium (Albuterol/ Ipratropium) 3 ml Q4H PRN HHN Shortness of Breath 01/23/21 10:00 01/28/21 09:59 Allopurinol (allopurinoL) 300 mg DAILY ORAL 01/20/21 11:45 02/19/21 11:44 01/27/21 08:52 Carvedilol (Coreg) 6.25 mg EVERY 12 HOURS ORAL 01/24/21 21:00 02/17/21 20:59 01/27/21 08:52 Clonidine HCl (Catapres Tab) 0.1 mg Q4H PRN ORAL sbp>170 01/18/21 16:15 04/18/21 16:14 Docusate Sodium (Colace) 100 mg THREE TIMES A DAY ORAL 01/19/21 13:00 02/18/21 12:59 01/27/21 08:52 Furosemide (Lasix) 40 mg DAILY ORAL 01/26/21 09:00 02/25/21 08:59 01/27/21 08:51 Levothyroxine Sodium (Synthroid) 50 mcg ACBREAKFAST ORAL 01/25/21 06:30 02/22/21 08:59 01/27/21 05:33 Pantoprazole (Protonix) 40 mg EVERY 12 HOURS ORAL 01/19/21 21:00 02/18/21 20:59 01/27/21 08:52 Prednisone (predniSONE) 20 mg DAILY ORAL 01/25/21 11:30 02/24/21 11:29 01/27/21 08:52 Sorbitol (sorbitoL) 30 ml BEDTIME ORAL 01/23/21 21:00 02/22/21 20:59 01/26/21 20:05 Sorbitol (sorbitoL) 60 ml DAILYPRN PRN ORAL constipation 01/24/21 20:45 02/23/21 20:44 Height (Feet): 5 Height (Inches): 10.00 Weight (Pounds): 295 General Appearance: no apparent distress Cardiovascular: normal rate Respiratory/Chest: decreased breath sounds Abdomen: soft Objective No change Adilson Yang MD Jan 27, 2021 10:47
--- NOTE | 2021-01-27 10:59 | Pulmonology Progress Note ---
Subjective ROS Limited/Unobtainable: No Interval Events: hypotension -> now off lasix Constitutional: Reports: no symptoms, other - feels better HEENT: Repors: no symptoms Respiratory: Reports: shortness of breath Cardiovascular: Reports: no symptoms Gastrointestinal/Abdominal: Reports: constipation Allergies: Coded Allergies: No Known Allergies (Verified Allergy, Mild, 03/23/10) Objective Last 24 Hour Vital Signs Date Time Temp Pulse Resp B/P (MAP) Pulse Ox O2 Delivery O2 Flow Rate FiO2 01/27/21 08:52 72 114/75 01/27/21 08:02 72 01/27/21 08:00 2.0 01/27/21 08:00 Nasal Cannula 1.5 01/27/21 08:00 98.0 68 20 115/70 (85) 97 01/27/21 04:00 97.4 53 20 116/77 (90) 96 01/27/21 04:00 2.0 01/27/21 04:00 Nasal Cannula 1.5 01/27/21 04:00 73 01/27/21 00:00 Nasal Cannula 1.5 01/27/21 00:00 2.0 01/27/21 00:00 97.0 58 18 122/54 (76) 95 01/26/21 23:27 69 01/26/21 20:31 65 01/26/21 20:06 72 115/76 01/26/21 20:00 97.9 71 18 115/76 (89) 96 01/26/21 20:00 Nasal Cannula 1.5 01/26/21 20:00 2.0 01/26/21 19:26 95 Nasal Cannula 2.0 28 01/26/21 19:26 82 20 95 Nasal Cannula 2.0 28 01/26/21 16:00 97.2 76 20 142/96 (111) 92 01/26/21 16:00 1.5 01/26/21 16:00 Nasal Cannula 1.5 01/26/21 16:00 67 01/26/21 12:00 97.0 72 20 130/92 (105) 92 01/26/21 12:00 1.0 01/26/21 12:00 72 01/26/21 12:00 Nasal Cannula 1.0 Intake and Output 01/26/21 01/27/21 19:00 07:00 Intake Total 300 ml 600 ml Balance 300 ml 600 ml Intake Oral 300 ml 600 ml # Voids 3 2 # Bowel Movements 2 3 General Appearance: no acute distress HEENT: atraumatic Respiratory: decreased breath sounds Cardiovascular: normal rate, regular rhythm Abdomen: soft, non tender Musculoskeletal: other - LE edema Current Medications Medications (Trade) Dose Ordered Sig/Della Route PRN Reason Start Time Stop Time Status Last Admin Dose Admin Acetaminophen (Tylenol) 500 mg Q6H PRN ORAL Mild Pain (Pain Scale 1-3) 01/18/21 22:30 02/17/21 22:29 01/23/21 21:12 Albuterol/ Ipratropium (Albuterol/ Ipratropium) 3 ml Q4H PRN HHN Shortness of Breath 01/23/21 10:00 01/28/21 09:59 Allopurinol (allopurinoL) 300 mg DAILY ORAL 01/20/21 11:45 02/19/21 11:44 01/27/21 08:52 Carvedilol (Coreg) 6.25 mg EVERY 12 HOURS ORAL 01/24/21 21:00 02/17/21 20:59 01/27/21 08:52 Clonidine HCl (Catapres Tab) 0.1 mg Q4H PRN ORAL sbp>170 01/18/21 16:15 04/18/21 16:14 Docusate Sodium (Colace) 100 mg THREE TIMES A DAY ORAL 01/19/21 13:00 02/18/21 12:59 01/27/21 08:52 Furosemide (Lasix) 40 mg DAILY ORAL 01/26/21 09:00 02/25/21 08:59 01/27/21 08:51 Levothyroxine Sodium (Synthroid) 50 mcg ACBREAKFAST ORAL 01/25/21 06:30 02/22/21 08:59 01/27/21 05:33 Pantoprazole (Protonix) 40 mg EVERY 12 HOURS ORAL 01/19/21 21:00 02/18/21 20:59 01/27/21 08:52 Prednisone (predniSONE) 20 mg DAILY ORAL 01/25/21 11:30 02/24/21 11:29 01/27/21 08:52 Sorbitol (sorbitoL) 30 ml BEDTIME ORAL 01/23/21 21:00 02/22/21 20:59 01/26/21 20:05 Sorbitol (sorbitoL) 60 ml DAILYPRN PRN ORAL constipation 01/24/21 20:45 02/23/21 20:44 Assessment/Plan Assessment/Plan 1. CHF exacerbation with elevated BNP -Cardio following -2D Echo: EF 60-65% - on Lasix, lisinopril, Coreg -> now off lasix given hypotension 2. undiagnosed COPD exacerbation -Patient reports extensive history of smoking, over 30 years -Patient education provided on smoking cessation -Patient denies use of home oxygen -We will continue breathing treatment; now Q4hr - Continue supplemental oxygen -> now on 2L/min nasal O2 3. Respiratory distress, likely secondary to #1 and #2 - Desaturated to 81% on room air this AM; continue supplemental oxygen -Continue steroids... Solu-Medrol 40 mg Q8hr -> will continue to taper; change to PO 4. bilateral lower extremity edema -Negative for DVT on V/D US -SCD and ambulation for DVT prophylaxis -Continue Lasix 5. Hypothyroidism -On levothyroxine 6. Pulmonary congestion - back on Lasix - supplemental oxygen as needed 7. hypotension, likely secondary to diuresis - s/p NS bolus - back on Lasix 8. Nicotine dependence - Pt education on smoking cessation 9. Abd wall hernia - Seen by GI - Needs outpatient colonoscopy per GI We will consult special education case manager for hospital bed and home oxygen. The care of this patient was discussed with my supervising physician Time spent for this encounter was approximately 31 minutes Geoff Scott Jan 27, 2021 10:59
--- NOTE | 2021-01-27 11:29 | Infectious Diseases Prog Note ---
Assessment/Plan Assessment/Plan IMPRESSION: 1. COPD with exacerbation. 2. Hypoxemia. 3. Diastolic CHF. 4. Acute renal failure. 5. Morbid obesity. 6. Hypothyroidism. 7. Nicotine dependence. 8. ? sleep apnea RECOMMENDATION: Observe off antibiotic Taper steroids Subjective ROS Limited/Unobtainable: No Constitutional: Reports: no symptoms, other - feels better Respiratory: Reports: shortness of breath, productive cough Cardiovascular: Reports: dyspnea on exertion Gastrointestinal/Abdominal: Reports: no symptoms Neurologic: Reports: no symptoms Allergies: Coded Allergies: No Known Allergies (Verified Allergy, Mild, 03/23/10) Objective Last 24 Hour Vital Signs Date Time Temp Pulse Resp B/P (MAP) Pulse Ox O2 Delivery O2 Flow Rate FiO2 01/27/21 08:52 72 114/75 01/27/21 08:02 72 01/27/21 08:00 2.0 01/27/21 08:00 Nasal Cannula 1.5 01/27/21 08:00 98.0 68 20 115/70 (85) 97 01/27/21 04:00 97.4 53 20 116/77 (90) 96 01/27/21 04:00 2.0 01/27/21 04:00 Nasal Cannula 1.5 01/27/21 04:00 73 01/27/21 00:00 Nasal Cannula 1.5 01/27/21 00:00 2.0 01/27/21 00:00 97.0 58 18 122/54 (76) 95 01/26/21 23:27 69 01/26/21 20:31 65 01/26/21 20:06 72 115/76 01/26/21 20:00 97.9 71 18 115/76 (89) 96 01/26/21 20:00 Nasal Cannula 1.5 01/26/21 20:00 2.0 01/26/21 19:26 95 Nasal Cannula 2.0 28 01/26/21 19:26 82 20 95 Nasal Cannula 2.0 28 01/26/21 16:00 97.2 76 20 142/96 (111) 92 01/26/21 16:00 1.5 01/26/21 16:00 Nasal Cannula 1.5 01/26/21 16:00 67 01/26/21 12:00 97.0 72 20 130/92 (105) 92 01/26/21 12:00 1.0 01/26/21 12:00 72 01/26/21 12:00 Nasal Cannula 1.0 Height (Feet): 5 Height (Inches): 10.00 Weight (Pounds): 295 HEENT: mucous membranes moist Respiratory/Chest: lungs clear, other - O2 by nasal cannula Cardiovascular: normal rate Abdomen: soft, non tender Extremities: no edema Neurologic/Psychiatric: alert, oriented x 3, responsive Current Medications Medications (Trade) Dose Ordered Sig/Della Route PRN Reason Start Time Stop Time Status Last Admin Dose Admin Acetaminophen (Tylenol) 500 mg Q6H PRN ORAL Mild Pain (Pain Scale 1-3) 01/18/21 22:30 02/17/21 22:29 01/23/21 21:12 Albuterol/ Ipratropium (Albuterol/ Ipratropium) 3 ml Q4H PRN HHN Shortness of Breath 01/23/21 10:00 01/28/21 09:59 Allopurinol (allopurinoL) 300 mg DAILY ORAL 01/20/21 11:45 02/19/21 11:44 01/27/21 08:52 Carvedilol (Coreg) 6.25 mg EVERY 12 HOURS ORAL 01/24/21 21:00 02/17/21 20:59 01/27/21 08:52 Clonidine HCl (Catapres Tab) 0.1 mg Q4H PRN ORAL sbp>170 01/18/21 16:15 04/18/21 16:14 Docusate Sodium (Colace) 100 mg THREE TIMES A DAY ORAL 01/19/21 13:00 02/18/21 12:59 01/27/21 08:52 Furosemide (Lasix) 40 mg DAILY ORAL 01/26/21 09:00 02/25/21 08:59 01/27/21 08:51 Levothyroxine Sodium (Synthroid) 50 mcg ACBREAKFAST ORAL 01/25/21 06:30 02/22/21 08:59 01/27/21 05:33 Pantoprazole (Protonix) 40 mg EVERY 12 HOURS ORAL 01/19/21 21:00 02/18/21 20:59 01/27/21 08:52 Prednisone (predniSONE) 20 mg DAILY ORAL 01/25/21 11:30 02/24/21 11:29 01/27/21 08:52 Sorbitol (sorbitoL) 30 ml BEDTIME ORAL 01/23/21 21:00 02/22/21 20:59 01/26/21 20:05 Sorbitol (sorbitoL) 60 ml DAILYPRN PRN ORAL constipation 01/24/21 20:45 02/23/21 20:44 Amilcar Rodriguez MD Jan 27, 2021 11:29
[2021-01-27 12:00] VITALS: BP 132/94
--- NOTE | 2021-01-27 13:31 | Cardiac Electrophysiology PN ---
Assessment/Plan Assessment/Plan 1. Bilateral lower extremity edema and shortness of breath. BNP elevated at 439. Lower extremity duplex showed no evidence of DVT. Echo showed Nl Ejection fraction 65%. on Lasix 40 po daily 2. History of hypertension. Decrease carvedilol to 3.125 po bid in view of bradycardia 3. History of COPD. 4. Hypothyroidism, now on Synthroid DW RN and Dr. Yang Subjective Subjective Echo EF 65%. Now on 2 liter NC. RN at bedside HR dropped to 35 and went right back up. Objective Last 24 Hour Vital Signs Date Time Temp Pulse Resp B/P (MAP) Pulse Ox O2 Delivery O2 Flow Rate FiO2 01/27/21 12:00 97.2 74 21 132/94 (107) 94 01/27/21 12:00 Nasal Cannula 1.5 01/27/21 12:00 2.0 01/27/21 12:00 81 01/27/21 08:52 72 114/75 01/27/21 08:02 72 01/27/21 08:00 2.0 01/27/21 08:00 Nasal Cannula 1.5 01/27/21 08:00 98.0 68 20 115/70 (85) 97 01/27/21 04:00 97.4 53 20 116/77 (90) 96 01/27/21 04:00 2.0 01/27/21 04:00 Nasal Cannula 1.5 01/27/21 04:00 73 01/27/21 00:00 Nasal Cannula 1.5 01/27/21 00:00 2.0 01/27/21 00:00 97.0 58 18 122/54 (76) 95 01/26/21 23:27 69 01/26/21 20:31 65 01/26/21 20:06 72 115/76 01/26/21 20:00 97.9 71 18 115/76 (89) 96 01/26/21 20:00 Nasal Cannula 1.5 01/26/21 20:00 2.0 01/26/21 19:26 95 Nasal Cannula 2.0 28 01/26/21 19:26 82 20 95 Nasal Cannula 2.0 28 01/26/21 16:00 97.2 76 20 142/96 (111) 92 01/26/21 16:00 1.5 01/26/21 16:00 Nasal Cannula 1.5 01/26/21 16:00 67 Intake and Output 01/26/21 01/27/21 19:00 07:00 Intake Total 300 ml 600 ml Balance 300 ml 600 ml Intake Oral 300 ml 600 ml # Voids 3 2 # Bowel Movements 2 3 Objective HEAD AND NECK: Positive JVD. LUNGS: Decreased breath sounds. CARDIOVASCULAR: Shows regular S1 and S2 with no gallop. ABDOMEN: Soft. EXTREMITIES: 2+ pitting edema. Raffy Garrido MD Jan 27, 2021 13:31
--- NOTE | 2021-01-27 14:57 | NUR ---
INSURANCE CLINICALS FAXED TO [facility] [phone]
[2021-01-27 16:00] VITALS: BP 144/92
--- NOTE | 2021-01-27 19:05 | NUR ---
NURSE HAND-OFF REPORT: Important Events on Shift:NA Patient Status: Stable Diet: Cardiac Diet Pending Orders: NA Pending Results/Labs:NA Pending MD notification:NA Latest Vital Signs: Temperature 97.4 , Pulse 61 , B/P 144 /92 , Respiratory Rate 22 , O2 SAT 95 , Room Air, O2 Flow Rate 2.0 . Vital Sign Comment: Stable EKG Rhythm: Sinus Rhythm Rhythm change?: N MD Notified?: N - MD Response: Latest Back Fall Score: 45 Fall Risk: High Risk Safety Measures: Call light Within Reach, Bed Alarm Zone 2, Side Rails Side Rails x2, Bed position Low and Locked. Fall Precautions: Yellow Socks Door Sign Patient Fall Education Report given to LATONIA Cody.
--- NOTE | 2021-01-27 19:06 | NUR ---
NURSE NOTES Report received from LATONIA Mathis with update. Observed pt sitting in bed. A/Ox4. NSR on EKG. Saturating 99% on 2L NC. Vitals WNL. No c/o pain. Call light within reach. Will monitor.
[2021-01-27 20:00] VITALS: BP 120/77
[2021-01-27] MEDS: Sorbitol Solution UD 30ml ORAL SCH (20:48)
--- NOTE | 2021-01-27 21:18 | General Progress Note ---
Subjective ROS Limited/Unobtainable: Yes Allergies: Coded Allergies: No Known Allergies (Verified Allergy, Mild, 03/23/10) Objective Last 24 Hour Vital Signs Date Time Temp Pulse Resp B/P (MAP) Pulse Ox O2 Delivery O2 Flow Rate FiO2 01/27/21 20:48 74 120/77 01/27/21 20:00 68 01/27/21 20:00 2.0 01/27/21 20:00 Nasal Cannula 1.5 01/27/21 16:00 2.0 01/27/21 16:00 97.4 78 22 144/92 (109) 95 01/27/21 16:00 61 01/27/21 16:00 Nasal Cannula 1.5 01/27/21 12:00 97.2 74 21 132/94 (107) 94 01/27/21 12:00 Nasal Cannula 1.5 01/27/21 12:00 2.0 01/27/21 12:00 81 01/27/21 08:52 72 114/75 01/27/21 08:02 72 01/27/21 08:00 2.0 01/27/21 08:00 Nasal Cannula 1.5 01/27/21 08:00 98.0 68 20 115/70 (85) 97 01/27/21 07:00 68 20 97 Nasal Cannula 2.0 28 01/27/21 07:00 97 Nasal Cannula 2.0 28 01/27/21 04:00 97.4 53 20 116/77 (90) 96 01/27/21 04:00 2.0 01/27/21 04:00 Nasal Cannula 1.5 01/27/21 04:00 73 01/27/21 00:00 Nasal Cannula 1.5 01/27/21 00:00 2.0 01/27/21 00:00 97.0 58 18 122/54 (76) 95 01/26/21 23:27 69 Intake and Output 01/26/21 01/27/21 19:00 07:00 Intake Total 300 ml 600 ml Balance 300 ml 600 ml Intake Oral 300 ml 600 ml # Voids 3 2 # Bowel Movements 2 3 Height (Feet): 5 Height (Inches): 10.00 Weight (Pounds): 295 Assessment/Plan Problem List: (1) Cardiomegaly ICD Codes: I51.7 - Cardiomegaly SNOMED: 3923576 (2) COPD (chronic obstructive pulmonary disease) ICD Codes: J44.9 - Chronic obstructive pulmonary disease, unspecified SNOMED: 63956371 (3) CHF (congestive heart failure) ICD Codes: I50.9 - Heart failure, unspecified SNOMED: 07807182 (4) UTI (urinary tract infection) ICD Codes: N39.0 - Urinary tract infection, site not specified SNOMED: 17652577 (5) ABIOLA (acute kidney injury) ICD Codes: N17.9 - Acute kidney failure, unspecified SNOMED: 1644916, 54392966 (6) Obesity ICD Codes: E66.9 - Obesity, unspecified SNOMED: 061798806, 666679358 Status: progressing Assessment/Plan: no change afebrile weak malnutrtion chf and copd ecac arf stable uti Ragini Naylor MD Jan 27, 2021 21:18
--- NOTE | 2021-01-27 22:43 | General Progress Note ---
Subjective Allergies: Coded Allergies: No Known Allergies (Verified Allergy, Mild, 03/23/10) Subjective (+) BM yesterday tolerating PO Objective Last 24 Hour Vital Signs Date Time Temp Pulse Resp B/P (MAP) Pulse Ox O2 Delivery O2 Flow Rate FiO2 01/27/21 20:48 74 120/77 01/27/21 20:00 98.4 77 20 120/77 (91) 95 01/27/21 20:00 68 01/27/21 20:00 2.0 01/27/21 20:00 Nasal Cannula 1.5 01/27/21 16:00 2.0 01/27/21 16:00 97.4 78 22 144/92 (109) 95 01/27/21 16:00 61 01/27/21 16:00 Nasal Cannula 1.5 01/27/21 12:00 97.2 74 21 132/94 (107) 94 01/27/21 12:00 Nasal Cannula 1.5 01/27/21 12:00 2.0 01/27/21 12:00 81 01/27/21 08:52 72 114/75 01/27/21 08:02 72 01/27/21 08:00 2.0 01/27/21 08:00 Nasal Cannula 1.5 01/27/21 08:00 98.0 68 20 115/70 (85) 97 01/27/21 07:00 68 20 97 Nasal Cannula 2.0 28 01/27/21 07:00 97 Nasal Cannula 2.0 28 01/27/21 04:00 97.4 53 20 116/77 (90) 96 01/27/21 04:00 2.0 01/27/21 04:00 Nasal Cannula 1.5 01/27/21 04:00 73 01/27/21 00:00 Nasal Cannula 1.5 01/27/21 00:00 2.0 01/27/21 00:00 97.0 58 18 122/54 (76) 95 01/26/21 23:27 69 Intake and Output 01/26/21 01/27/21 19:00 07:00 Intake Total 300 ml 600 ml Balance 300 ml 600 ml Intake Oral 300 ml 600 ml # Voids 3 2 # Bowel Movements 2 3 Height (Feet): 5 Height (Inches): 10.00 Weight (Pounds): 295 Objective Obese NCAT Supple CTA RR Abd soft, (+) hernias no edema Assessment/Plan Status: progressing Assessment/Plan: Assessment - chronic constipation - HTN - Obesity - hypothyroid - hyperlipidemia - abd wall hernia Recommendations - Sorbitol nightly, and PRN doses - po as tolerated - OOB - outpatient colonoscopy Odilon Quinonez MD Jan 27, 2021 22:43
--- NOTE | 2021-01-27 23:24 | NUR ---
NURSE NOTES: No cardiopulmonary distress noted. Pt requesting snacks/sandwich. Will monitor.
[2021-01-28] VITALS: BP 119/74
[2021-01-28 04:00] VITALS: BP 114/86
--- NOTE | 2021-01-28 06:17 | NUR ---
NURSE HAND-OFF REPORT: Important Events on Shift: No changes; pt awaiting DC Patient Status: Stable Diet: Cardiac Pending Orders: Pending Results/Labs: Pending MD notification: Latest Vital Signs: Temperature 98.0 , Pulse 74 , B/P 114 /86 , Respiratory Rate 16 , O2 SAT 95 , Room Air, O2 Flow Rate 2.0 . Vital Sign Comment: WNL EKG Rhythm: Sinus Rhythm Rhythm change?: N MD Notified?: N - MD Response: Latest Back Fall Score: 45 Fall Risk: High Risk Safety Measures: Call light Within Reach, Bed Alarm Zone 2, Side Rails Side Rails x2, Bed position Low and Locked. Fall Precautions: Yellow Socks Door Sign Patient Fall Education Report given to LATONIA Mckeon.
--- NOTE | 2021-01-28 07:00 | NUR ---
NURSE NOTES: Received report from LATONIA Whitaker. Pt in bed awake and orientedx4. Denied SOB and pain. IV site in right hand 20G SL patent and intact. Side rails x3 up for safety. Call light within reach. O2 2LPM via N/C and sating 94%. Will continue plan of care.
[2021-01-28 08:00] VITALS: BP 129/79
[2021-01-28] MEDS: Furosemide 40mg tab ORAL SCH (08:02)
[2021-01-28] MEDS: Docusate 100mg cap ORAL SCH ×3 (08:02→17:16)
[2021-01-28] MEDS: Carvedilol 6.25mg Tab ORAL SCH ×2 (08:03→20:42)
--- NOTE | 2021-01-28 08:34 | Pulmonology Progress Note ---
Subjective ROS Limited/Unobtainable: Yes Interval Events: back on lasix Constitutional: Reports: no symptoms, other - feels better HEENT: Repors: no symptoms Respiratory: Reports: shortness of breath Cardiovascular: Reports: no symptoms Gastrointestinal/Abdominal: Reports: no symptoms Allergies: Coded Allergies: No Known Allergies (Verified Allergy, Mild, 03/23/10) Objective Last 24 Hour Vital Signs Date Time Temp Pulse Resp B/P (MAP) Pulse Ox O2 Delivery O2 Flow Rate FiO2 01/28/21 08:03 86 129/79 01/28/21 08:00 98.1 86 20 129/79 (96) 95 01/28/21 04:00 98.0 74 16 114/86 (95) 95 01/28/21 04:00 2.0 01/28/21 04:00 63 01/28/21 04:00 Nasal Cannula 1.5 01/28/21 00:00 72 01/28/21 00:00 Nasal Cannula 1.5 01/28/21 00:00 2.0 01/28/21 00:00 97.9 80 20 119/74 (89) 96 01/27/21 20:48 74 120/77 01/27/21 20:00 98.4 77 20 120/77 (91) 95 01/27/21 20:00 68 01/27/21 20:00 2.0 01/27/21 20:00 Nasal Cannula 1.5 01/27/21 19:20 81 20 96 Nasal Cannula 2.0 28 01/27/21 19:10 96 Nasal Cannula 2.0 28 01/27/21 16:00 2.0 01/27/21 16:00 97.4 78 22 144/92 (109) 95 01/27/21 16:00 61 01/27/21 16:00 Nasal Cannula 1.5 01/27/21 12:00 97.2 74 21 132/94 (107) 94 01/27/21 12:00 Nasal Cannula 1.5 01/27/21 12:00 2.0 01/27/21 12:00 81 01/27/21 08:52 72 114/75 Intake and Output 01/27/21 01/28/21 19:00 07:00 Intake Total 240 ml 400 ml Balance 240 ml 400 ml Intake Oral 240 ml 400 ml # Voids 2 3 # Bowel Movements 3 1 General Appearance: no acute distress HEENT: atraumatic Respiratory: decreased breath sounds Cardiovascular: normal rate, regular rhythm Abdomen: soft, non tender Musculoskeletal: other - LE edema Current Medications Medications (Trade) Dose Ordered Sig/Della Route PRN Reason Start Time Stop Time Status Last Admin Dose Admin Acetaminophen (Tylenol) 500 mg Q6H PRN ORAL Mild Pain (Pain Scale 1-3) 01/18/21 22:30 02/17/21 22:29 01/23/21 21:12 Albuterol/ Ipratropium (Albuterol/ Ipratropium) 3 ml Q4H PRN HHN Shortness of Breath 01/23/21 10:00 01/28/21 09:59 Allopurinol (allopurinoL) 300 mg DAILY ORAL 01/20/21 11:45 02/19/21 11:44 01/28/21 08:02 Carvedilol (Coreg) 3.125 mg EVERY 12 HOURS ORAL 01/27/21 21:00 02/17/21 20:59 01/28/21 08:03 Clonidine HCl (Catapres Tab) 0.1 mg Q4H PRN ORAL sbp>170 01/18/21 16:15 04/18/21 16:14 Docusate Sodium (Colace) 100 mg THREE TIMES A DAY ORAL 01/19/21 13:00 02/18/21 12:59 01/28/21 08:02 Furosemide (Lasix) 40 mg DAILY ORAL 01/26/21 09:00 02/25/21 08:59 01/28/21 08:02 Levothyroxine Sodium (Synthroid) 50 mcg ACBREAKFAST ORAL 01/25/21 06:30 02/22/21 08:59 01/28/21 05:30 Pantoprazole (Protonix) 40 mg EVERY 12 HOURS ORAL 01/19/21 21:00 02/18/21 20:59 01/28/21 08:03 Prednisone (predniSONE) 20 mg DAILY ORAL 01/25/21 11:30 02/24/21 11:29 01/28/21 08:02 Sorbitol (sorbitoL) 30 ml BEDTIME ORAL 01/23/21 21:00 02/22/21 20:59 01/27/21 20:48 Sorbitol (sorbitoL) 60 ml DAILYPRN PRN ORAL constipation 01/24/21 20:45 02/23/21 20:44 Assessment/Plan Assessment/Plan 1. CHF exacerbation with elevated BNP -Cardio following -2D Echo: EF 60-65% - on Lasix, lisinopril, Coreg 2. undiagnosed COPD exacerbation -Patient reports extensive history of smoking, over 30 years -Patient education provided on smoking cessation -Patient denies use of home oxygen -continue breathing treatment prn - Continue supplemental oxygen -> now on 1-2L/min nasal O2 3. Respiratory distress, likely secondary to #1 and #2 - Desaturated to 81% on room air this AM; continue supplemental oxygen -Continue steroids... Solu-Medrol 40 mg Q8hr -> will continue to taper; changed to PO 4. bilateral lower extremity edema -Negative for DVT on V/D US -SCD and ambulation for DVT prophylaxis -Continue Lasix 5. Hypothyroidism -On levothyroxine 6. Pulmonary congestion - back on Lasix - supplemental oxygen as needed 7. hypotension, likely secondary to diuresis - s/p NS bolus - back on Lasix 8. Nicotine dependence - Pt education on smoking cessation 9. Abd wall hernia - Seen by GI - Needs outpatient colonoscopy per GI We will consult patient case coordinator for hospital bed and home oxygen. Still waiting on hospital bed and home oxygen The care of this patient was discussed with my supervising physician Time spent for this encounter was approximately 31 minutes Geoff Scott Jan 28, 2021 08:34
--- NOTE | 2021-01-28 09:52 | Nephrology Progress Note ---
Assessment/Plan Problem List: (1) ABIOLA (acute kidney injury) (2) CHF (congestive heart failure) (3) COPD (chronic obstructive pulmonary disease) (4) UTI (urinary tract infection) (5) Obesity (6) Hypothyroidism (7) HTN (hypertension) Assessment Renal failure: Rising serum creatinine multifactorial. Mainly treatment for CHF with lisinopril and Lasix Congestive heart failure History of hypertension History of COPD Obesity, BMI 42.3 Elevated TSH: Hypothyroidism Plan January 28: No labs drawn today. Renal parameters stable as of January 26. Medication list reviewed. Continue per current management. January 27: No labs drawn today. Renal parameters stable. Continue per consultants. January 26: Labs reviewed. Renal parameters stable. Clinically stable. Continue per consultants. January 25: No labs drawn today. Clinically stable. Labs ordered. Continue per consultants. January 24: No labs drawn today. Clinically stable. Will check lab tomorrow. Continue per consultants. Medication list reviewed. January 23: Labs reviewed. Renal parameters stable. Continue per consultants. January 22: No labs drawn today. Patient clinically stable. Medication list reviewed. Blood pressure stable. Will check lab tomorrow. January 21: Labs reviewed. Medication list reviewed. Renal parameters and electrolytes improved. Blood pressure stable. 24-hour urine for total protein pending. Heart rate stable. Remains on Synthroid intravenously January 20: Labs reviewed. Medication list reviewed. Serum creatinine 1.4 unchanged. Continue per consultants. Blood pressure dropped as a result Lasix on hold. Allopurinol added. Continue to monitor renal parameters.Discussed with Dr Garrido . Parameters for Coreg and Lisinopril, 24-hour urine collection for total protein ordered. Will change Synthroid to IV for the next few days. Continue to optimize pulmonary and cardiac status Monitor renal parameters electrolytes Start Synthroid Stool softener and gastric support Per orders Objective Objective Last 24 Hour Vital Signs Date Time Temp Pulse Resp B/P (MAP) Pulse Ox O2 Delivery O2 Flow Rate FiO2 01/28/21 08:03 86 129/79 01/28/21 08:00 Nasal Cannula 2.0 01/28/21 08:00 2.0 01/28/21 08:00 98.1 86 20 129/79 (96) 95 01/28/21 08:00 72 01/28/21 04:00 98.0 74 16 114/86 (95) 95 01/28/21 04:00 2.0 01/28/21 04:00 63 01/28/21 04:00 Nasal Cannula 1.5 01/28/21 00:00 72 01/28/21 00:00 Nasal Cannula 1.5 01/28/21 00:00 2.0 01/28/21 00:00 97.9 80 20 119/74 (89) 96 01/27/21 20:48 74 120/77 01/27/21 20:00 98.4 77 20 120/77 (91) 95 01/27/21 20:00 68 01/27/21 20:00 2.0 01/27/21 20:00 Nasal Cannula 1.5 01/27/21 19:20 81 20 96 Nasal Cannula 2.0 28 01/27/21 19:10 96 Nasal Cannula 2.0 28 01/27/21 16:00 2.0 01/27/21 16:00 97.4 78 22 144/92 (109) 95 01/27/21 16:00 61 01/27/21 16:00 Nasal Cannula 1.5 01/27/21 12:00 97.2 74 21 132/94 (107) 94 01/27/21 12:00 Nasal Cannula 1.5 01/27/21 12:00 2.0 01/27/21 12:00 81 Intake and Output 01/27/21 01/28/21 19:00 07:00 Intake Total 240 ml 400 ml Balance 240 ml 400 ml Intake Oral 240 ml 400 ml # Voids 2 3 # Bowel Movements 3 1 Height (Feet): 5 Height (Inches): 10.00 Weight (Pounds): 295 Objective No change Adilson Yang MD Jan 28, 2021 09:52
--- NOTE | 2021-01-28 10:04 | Infectious Diseases Prog Note ---
Assessment/Plan Assessment/Plan IMPRESSION: 1. COPD with exacerbation. 2. Hypoxemia. 3. Diastolic CHF. 4. Acute renal failure. 5. Morbid obesity. 6. Hypothyroidism. 7. Nicotine dependence. 8. ? sleep apnea RECOMMENDATION: Observe off antibiotic Taper steroids Subjective ROS Limited/Unobtainable: No Constitutional: Reports: no symptoms, other - feels better Respiratory: Reports: shortness of breath, other - decreased Gastrointestinal/Abdominal: Reports: no symptoms Genitourinary: Reports: no symptoms Allergies: Coded Allergies: No Known Allergies (Verified Allergy, Mild, 03/23/10) Objective Last 24 Hour Vital Signs Date Time Temp Pulse Resp B/P (MAP) Pulse Ox O2 Delivery O2 Flow Rate FiO2 01/28/21 08:03 86 129/79 01/28/21 08:00 Nasal Cannula 2.0 01/28/21 08:00 2.0 01/28/21 08:00 98.1 86 20 129/79 (96) 95 01/28/21 08:00 72 01/28/21 04:00 98.0 74 16 114/86 (95) 95 01/28/21 04:00 2.0 01/28/21 04:00 63 01/28/21 04:00 Nasal Cannula 1.5 01/28/21 00:00 72 01/28/21 00:00 Nasal Cannula 1.5 01/28/21 00:00 2.0 01/28/21 00:00 97.9 80 20 119/74 (89) 96 01/27/21 20:48 74 120/77 01/27/21 20:00 98.4 77 20 120/77 (91) 95 01/27/21 20:00 68 01/27/21 20:00 2.0 01/27/21 20:00 Nasal Cannula 1.5 01/27/21 19:20 81 20 96 Nasal Cannula 2.0 28 01/27/21 19:10 96 Nasal Cannula 2.0 28 01/27/21 16:00 2.0 01/27/21 16:00 97.4 78 22 144/92 (109) 95 01/27/21 16:00 61 01/27/21 16:00 Nasal Cannula 1.5 01/27/21 12:00 97.2 74 21 132/94 (107) 94 01/27/21 12:00 Nasal Cannula 1.5 01/27/21 12:00 2.0 01/27/21 12:00 81 Height (Feet): 5 Height (Inches): 10.00 Weight (Pounds): 295 General Appearance: no acute distress HEENT: mucous membranes moist Respiratory/Chest: lungs clear, other - O@ by nasal cannula Cardiovascular: normal rate Abdomen: soft, non tender Extremities: no edema Neurologic/Psychiatric: alert, oriented x 3, responsive Current Medications Medications (Trade) Dose Ordered Sig/Della Route PRN Reason Start Time Stop Time Status Last Admin Dose Admin Acetaminophen (Tylenol) 500 mg Q6H PRN ORAL Mild Pain (Pain Scale 1-3) 01/18/21 22:30 02/17/21 22:29 01/23/21 21:12 Allopurinol (allopurinoL) 300 mg DAILY ORAL 01/20/21 11:45 02/19/21 11:44 01/28/21 08:02 Carvedilol (Coreg) 3.125 mg EVERY 12 HOURS ORAL 01/27/21 21:00 02/17/21 20:59 01/28/21 08:03 Clonidine HCl (Catapres Tab) 0.1 mg Q4H PRN ORAL sbp>170 01/18/21 16:15 04/18/21 16:14 Docusate Sodium (Colace) 100 mg THREE TIMES A DAY ORAL 01/19/21 13:00 02/18/21 12:59 01/28/21 08:02 Furosemide (Lasix) 40 mg DAILY ORAL 01/26/21 09:00 02/25/21 08:59 01/28/21 08:02 Levothyroxine Sodium (Synthroid) 50 mcg ACBREAKFAST ORAL 01/25/21 06:30 02/22/21 08:59 01/28/21 05:30 Pantoprazole (Protonix) 40 mg EVERY 12 HOURS ORAL 01/19/21 21:00 02/18/21 20:59 01/28/21 08:03 Prednisone (predniSONE) 20 mg DAILY ORAL 01/25/21 11:30 02/24/21 11:29 01/28/21 08:02 Sorbitol (sorbitoL) 30 ml BEDTIME ORAL 01/23/21 21:00 02/22/21 20:59 01/27/21 20:48 Sorbitol (sorbitoL) 60 ml DAILYPRN PRN ORAL constipation 01/24/21 20:45 02/23/21 20:44 Amilcar Rodriguez MD Jan 28, 2021 10:04
--- NOTE | 2021-01-28 11:03 | NUR ---
CONTACT ASSEMBLER NOTES SPOKE WITH GAIL MCFARLAND @ [facility] MADE AWARE OF DC NEEDS. WILL FOLLOW UP. Addendum: 01/28/21 at 1546 by ALEX HENSLEY RN CM SPOKE WITH KATHI FROM [facility] OXYGEN TO BE DELIVERED AT 1830 TODAY. PT IS REQUESTING TO BE DISCHARGED.
--- NOTE | 2021-01-28 11:39 | Cardiac Electrophysiology PN ---
Assessment/Plan Assessment/Plan 1. Bilateral lower extremity edema and shortness of breath. BNP elevated at 439. Lower extremity duplex showed no evidence of DVT. Echo showed Nl Ejection fraction 65%. Better on Lasix 40 po daily 2. History of hypertension. On carvedilol 3.125 po bid in view of bradycardia 3. History of COPD. 4. Hypothyroidism, now on Synthroid DW RN and Dr. Yang Subjective Subjective Echo EF 65% on 2 liter NC. RN at bedside. Better on Lasix HR dropped to 35 and went right back up. HR better on Lower dose of Coreg Objective Last 24 Hour Vital Signs Date Time Temp Pulse Resp B/P (MAP) Pulse Ox O2 Delivery O2 Flow Rate FiO2 01/28/21 08:03 86 129/79 01/28/21 08:00 Nasal Cannula 2.0 01/28/21 08:00 2.0 01/28/21 08:00 98.1 86 20 129/79 (96) 95 01/28/21 08:00 72 01/28/21 04:00 98.0 74 16 114/86 (95) 95 01/28/21 04:00 2.0 01/28/21 04:00 63 01/28/21 04:00 Nasal Cannula 1.5 01/28/21 00:00 72 01/28/21 00:00 Nasal Cannula 1.5 01/28/21 00:00 2.0 01/28/21 00:00 97.9 80 20 119/74 (89) 96 01/27/21 20:48 74 120/77 01/27/21 20:00 98.4 77 20 120/77 (91) 95 01/27/21 20:00 68 01/27/21 20:00 2.0 01/27/21 20:00 Nasal Cannula 1.5 01/27/21 19:20 81 20 96 Nasal Cannula 2.0 28 01/27/21 19:10 96 Nasal Cannula 2.0 28 01/27/21 16:00 2.0 01/27/21 16:00 97.4 78 22 144/92 (109) 95 01/27/21 16:00 61 01/27/21 16:00 Nasal Cannula 1.5 01/27/21 12:00 97.2 74 21 132/94 (107) 94 01/27/21 12:00 Nasal Cannula 1.5 01/27/21 12:00 2.0 01/27/21 12:00 81 Intake and Output 01/27/21 01/28/21 19:00 07:00 Intake Total 240 ml 400 ml Balance 240 ml 400 ml Intake Oral 240 ml 400 ml # Voids 2 3 # Bowel Movements 3 1 Objective HEAD AND NECK: Positive JVD. LUNGS: Decreased breath sounds. CARDIOVASCULAR: Shows regular S1 and S2 with no gallop. ABDOMEN: Soft. EXTREMITIES: 2+ pitting edema. Raffy Garrido MD Jan 28, 2021 11:39
--- NOTE | 2021-01-28 11:53 | NUR ---
NURSE NOTES: Noted sating 86% on room air at rest.
[2021-01-28 12:00] VITALS: BP 134/94
--- NOTE | 2021-01-28 12:57 | NUR ---
INSURANCE CLINICALS FAXED TO [employer] [phone]
[2021-01-28 15:35] VITALS: BP 120/77
--- NOTE | 2021-01-28 19:22 | NUR ---
NURSE HAND-OFF REPORT: Important Events on Shift: weaning oxygen Patient Status: STABLE Diet:cardiac Pending Orders: n/a Pending Results/Labs:n/a Pending MD notification:n/a Latest Vital Signs: Temperature 98.0 , Pulse 73 , B/P 120 /77 , Respiratory Rate 20 , O2 SAT 94 , Room Air, O2 Flow Rate 2.0 . Vital Sign Comment:n/a EKG Rhythm: Sinus Rhythm Rhythm change?: N MD Notified?: N - MD Response: Latest Back Fall Score: 45 Fall Risk: High Risk Safety Measures: Call light Within Reach, Bed Alarm Zone 2, Side Rails Side Rails x2, Bed position Low and Locked. Fall Precautions: Yellow Socks Door Sign Patient Fall Education Report given to LATONIA Ruiz.
[2021-01-28 20:00] VITALS: BP 122/78
[2021-01-28] MEDS: Sorbitol Solution UD 30ml ORAL SCH (20:43)
--- NOTE | 2021-01-28 21:08 | General Progress Note ---
Subjective Allergies: Coded Allergies: No Known Allergies (Verified Allergy, Mild, 03/23/10) Subjective No BM tolerating PO Objective Last 24 Hour Vital Signs Date Time Temp Pulse Resp B/P (MAP) Pulse Ox O2 Delivery O2 Flow Rate FiO2 01/28/21 20:42 61 122/78 01/28/21 20:00 71 01/28/21 19:36 94 Nasal Cannula 1.0 24 01/28/21 19:35 74 20 94 Nasal Cannula 1.0 24 01/28/21 16:12 73 01/28/21 16:00 Room Air 01/28/21 16:00 2.0 01/28/21 15:35 98.0 66 20 120/77 (91) 94 01/28/21 12:28 70 01/28/21 12:00 98.1 73 20 134/94 (107) 95 01/28/21 12:00 2.0 01/28/21 12:00 Nasal Cannula 2.0 01/28/21 08:03 86 129/79 01/28/21 08:00 Nasal Cannula 2.0 01/28/21 08:00 2.0 01/28/21 08:00 98.1 86 20 129/79 (96) 95 01/28/21 08:00 72 01/28/21 04:00 98.0 74 16 114/86 (95) 95 01/28/21 04:00 2.0 01/28/21 04:00 63 01/28/21 04:00 Nasal Cannula 1.5 01/28/21 00:00 72 01/28/21 00:00 Nasal Cannula 1.5 01/28/21 00:00 2.0 01/28/21 00:00 97.9 80 20 119/74 (89) 96 Intake and Output 01/27/21 01/28/21 19:00 07:00 Intake Total 240 ml 400 ml Balance 240 ml 400 ml Intake Oral 240 ml 400 ml # Voids 2 3 # Bowel Movements 3 1 Height (Feet): 5 Height (Inches): 10.00 Weight (Pounds): 295 Objective Obese NCAT Supple CTA RR Abd soft, (+) hernias no edema Assessment/Plan Status: progressing Assessment/Plan: Assessment - chronic constipation - HTN - Obesity - hypothyroid - hyperlipidemia - abd wall hernia Recommendations - Sorbitol nightly, and PRN doses - will increase dose - po as tolerated - OOB - outpatient colonoscopy Odilon Quinonez MD Jan 28, 2021 21:08
--- NOTE | 2021-01-28 21:14 | General Progress Note ---
Subjective ROS Limited/Unobtainable: Yes Allergies: Coded Allergies: No Known Allergies (Verified Allergy, Mild, 03/23/10) Objective Last 24 Hour Vital Signs Date Time Temp Pulse Resp B/P (MAP) Pulse Ox O2 Delivery O2 Flow Rate FiO2 01/28/21 20:42 61 122/78 01/28/21 20:00 98.2 61 18 122/78 (93) 95 01/28/21 20:00 1.0 01/28/21 20:00 71 01/28/21 20:00 Room Air 01/28/21 19:36 94 Nasal Cannula 1.0 24 01/28/21 19:35 74 20 94 Nasal Cannula 1.0 24 01/28/21 16:12 73 01/28/21 16:00 Room Air 01/28/21 16:00 2.0 01/28/21 15:35 98.0 66 20 120/77 (91) 94 01/28/21 12:28 70 01/28/21 12:00 98.1 73 20 134/94 (107) 95 01/28/21 12:00 2.0 01/28/21 12:00 Nasal Cannula 2.0 01/28/21 08:03 86 129/79 01/28/21 08:00 Nasal Cannula 2.0 01/28/21 08:00 2.0 01/28/21 08:00 98.1 86 20 129/79 (96) 95 01/28/21 08:00 72 01/28/21 04:00 98.0 74 16 114/86 (95) 95 01/28/21 04:00 2.0 01/28/21 04:00 63 01/28/21 04:00 Nasal Cannula 1.5 01/28/21 00:00 72 01/28/21 00:00 Nasal Cannula 1.5 01/28/21 00:00 2.0 01/28/21 00:00 97.9 80 20 119/74 (89) 96 Intake and Output 01/27/21 01/28/21 19:00 07:00 Intake Total 240 ml 400 ml Balance 240 ml 400 ml Intake Oral 240 ml 400 ml # Voids 2 3 # Bowel Movements 3 1 Height (Feet): 5 Height (Inches): 10.00 Weight (Pounds): 295 Assessment/Plan Problem List: (1) Cardiomegaly ICD Codes: I51.7 - Cardiomegaly SNOMED: 3456752 (2) COPD (chronic obstructive pulmonary disease) ICD Codes: J44.9 - Chronic obstructive pulmonary disease, unspecified SNOMED: 80461625 (3) CHF (congestive heart failure) ICD Codes: I50.9 - Heart failure, unspecified SNOMED: 71522330 (4) UTI (urinary tract infection) ICD Codes: N39.0 - Urinary tract infection, site not specified SNOMED: 16416535 (5) ABIOLA (acute kidney injury) ICD Codes: N17.9 - Acute kidney failure, unspecified SNOMED: 7025620, 97691143 (6) Obesity ICD Codes: E66.9 - Obesity, unspecified SNOMED: 483995547, 828723547 Status: progressing Assessment/Plan: copd no wheezing no sob dc in am with home oxygen chf and copd ecac arf stable uti Ragini Naylor MD Jan 28, 2021 21:14
[2021-01-28] MEDS ORDERED: Sorbitol Solution UD 30ml ORAL SCH (21:15)
[2021-01-29] VITALS: BP 120/77
[2021-01-29 04:00] VITALS: BP 129/78
[2021-01-29 05:07] LABS: BASOPHILS % (AUTO) 1.1 % (0.0-2.0); EOSINOPHILS % (AUTO) 2.2 % (0.0-3.0); HEMATOCRIT 44.1 % (37.0-47.0); HEMOGLOBIN 13.8 G/DL (12.0-16.0); MEAN CORPUSCULAR VOLUME 107 FL (80-99); MONOCYTES % (AUTO) 6.1 % (1.0-10.0); NEUTROPHILS % (AUTO) 63.6 % (45.0-75.0); PLATELET COUNT 322 K/UL (150-450); RED BLOOD COUNT 4.11 M/UL (4.20-5.40); RED CELL DISTRIBUTION WIDTH 14.5 % (11.6-14.8); WHITE BLOOD COUNT 7.5 K/UL (4.8-10.8)
[2021-01-29 05:29] LABS: ALANINE AMINOTRANSFERASE 147 U/L (12-78); ALBUMIN 3.8 G/DL (3.4-5.0); ALBUMIN/GLOBULIN RATIO 1.2 (1.0-2.7); ALKALINE PHOSPHATASE 70 U/L (46-116); ANION GAP 2 mmol/L (5-15); ASPARTATE AMINO TRANSFERASE 23 U/L (15-37); BILIRUBIN,TOTAL 0.5 MG/DL (0.2-1.0); BLOOD UREA NITROGEN 22 mg/dL (7-18); CALCIUM 8.8 MG/DL (8.5-10.1); CARBON DIOXIDE 38 MMOL/L (21-32); CHLORIDE 99 MMOL/L (98-107); PHOSPHORUS 3.2 MG/DL (2.5-4.9); POTASSIUM 3.8 MMOL/L (3.5-5.1); SODIUM 139 MMOL/L (136-145)
--- NOTE | 2021-01-29 07:50 | NUR ---
NURSE NOTES: Received report. Pt is awake in bed and AOx4. Pt is on NC @2L with no sign of sob or resp distress. PT is on cardiac specialist with SR noted. IV site in right hand 20G SL patent and intact. Side rails x3 up for safety. Call light within reach. Bed in lowest locked position. Will continue with plan of care.
[2021-01-29 08:00] VITALS: BP 120/72
--- NOTE | 2021-01-29 08:20 | Cardiac Electrophysiology PN ---
Assessment/Plan Assessment/Plan 1. Bilateral lower extremity edema and shortness of breath. BNP elevated at 439. Lower extremity duplex showed no evidence of DVT. Echo showed Nl Ejection fraction 65%. Better on Lasix 40 po daily 2. History of hypertension. On carvedilol 3.125 po bid and Lasix 3. History of COPD. 4. Hypothyroidism, now on Synthroid EPIFANIO RN and Dr. Yang DC home on home O2 Subjective Subjective Echo EF 65% on 2 liter NC. RN at bedside. Better on Lasix HR better on Lower dose of Coreg Received oxygen tank Objective Last 24 Hour Vital Signs Date Time Temp Pulse Resp B/P (MAP) Pulse Ox O2 Delivery O2 Flow Rate FiO2 01/29/21 04:00 Room Air 01/29/21 04:00 88 01/29/21 04:00 98.0 63 18 129/78 (95) 95 01/29/21 04:00 1.0 01/29/21 00:00 98.2 56 18 120/77 (91) 95 01/29/21 00:00 84 01/29/21 00:00 Room Air 01/29/21 00:00 1.0 01/28/21 20:42 61 122/78 01/28/21 20:00 98.2 61 18 122/78 (93) 95 01/28/21 20:00 1.0 01/28/21 20:00 71 01/28/21 20:00 Room Air 01/28/21 19:36 94 Nasal Cannula 1.0 24 01/28/21 19:35 74 20 94 Nasal Cannula 1.0 24 01/28/21 16:12 73 01/28/21 16:00 Room Air 01/28/21 16:00 2.0 01/28/21 15:35 98.0 66 20 120/77 (91) 94 01/28/21 12:28 70 01/28/21 12:00 98.1 73 20 134/94 (107) 95 01/28/21 12:00 2.0 01/28/21 12:00 Nasal Cannula 2.0 Intake and Output 01/28/21 01/29/21 19:00 07:00 Output Total 800 ml Balance -800 ml Output Urine Total 800 ml # Voids 3 Laboratory Tests Test 01/29/21 04:20 White Blood Count 7.5 K/UL (4.8-10.8) Red Blood Count 4.11 M/UL (4.20-5.40) L Hemoglobin 13.8 G/DL (12.0-16.0) Hematocrit 44.1 % (37.0-47.0) Mean Corpuscular Volume 107 FL (80-99) H Mean Corpuscular Hemoglobin 33.4 PG (27.0-31.0) H Mean Corpuscular Hemoglobin Concent 31.2 G/DL (32.0-36.0) L Red Cell Distribution Width 14.5 % (11.6-14.8) Platelet Count 322 K/UL (150-450) Mean Platelet Volume 5.9 FL (6.5-10.1) L Neutrophils (%) (Auto) 63.6 % (45.0-75.0) Lymphocytes (%) (Auto) 27.0 % (20.0-45.0) Monocytes (%) (Auto) 6.1 % (1.0-10.0) Eosinophils (%) (Auto) 2.2 % (0.0-3.0) Basophils (%) (Auto) 1.1 % (0.0-2.0) Sodium Level 139 MMOL/L (136-145) Potassium Level 3.8 MMOL/L (3.5-5.1) Chloride Level 99 MMOL/L (98-107) Carbon Dioxide Level 38 MMOL/L (21-32) H Anion Gap 2 mmol/L (5-15) L Blood Urea Nitrogen 22 mg/dL (7-18) H Creatinine 1.0 MG/DL (0.55-1.30) Estimat Glomerular Filtration Rate > 60 mL/min (>60) Glucose Level 97 MG/DL (74-106) Calcium Level 8.8 MG/DL (8.5-10.1) Phosphorus Level 3.2 MG/DL (2.5-4.9) Magnesium Level 2.4 MG/DL (1.8-2.4) Total Bilirubin 0.5 MG/DL (0.2-1.0) Aspartate Amino Transf (AST/SGOT) 23 U/L (15-37) Alanine Aminotransferase (ALT/SGPT) 147 U/L (12-78) H Alkaline Phosphatase 70 U/L (46-116) Total Protein 7.0 G/DL (6.4-8.2) Albumin 3.8 G/DL (3.4-5.0) Globulin 3.2 g/dL Albumin/Globulin Ratio 1.2 (1.0-2.7) Objective HEAD AND NECK: Positive JVD. LUNGS: Decreased breath sounds. CARDIOVASCULAR: Shows regular S1 and S2 with no gallop. ABDOMEN: Soft. EXTREMITIES: 2+ pitting edema. Raffy Garrido MD Jan 29, 2021 08:20
[2021-01-29] MEDS: Furosemide 40mg tab ORAL SCH (08:48)
[2021-01-29] MEDS: Carvedilol 6.25mg Tab ORAL SCH (08:48)
[2021-01-29] MEDS: Docusate 100mg cap ORAL SCH ×2 (08:48→12:23)
[2021-01-29] MEDS ORDERED: Sorbitol Solution UD 30ml ORAL SCH (10:00)
[2021-01-29] MEDS ORDERED: Albuterol 90mcg Inhaler 8gm INH PRN (10:00)
--- NOTE | 2021-01-29 10:07 | Pulmonology Progress Note ---
Subjective ROS Limited/Unobtainable: No Interval Events: back on lasix Constitutional: Reports: no symptoms, other - feels better HEENT: Repors: no symptoms Respiratory: Reports: shortness of breath Cardiovascular: Reports: no symptoms Gastrointestinal/Abdominal: Reports: no symptoms Allergies: Coded Allergies: No Known Allergies (Verified Allergy, Mild, 03/23/10) Objective Last 24 Hour Vital Signs Date Time Temp Pulse Resp B/P (MAP) Pulse Ox O2 Delivery O2 Flow Rate FiO2 01/29/21 08:48 71 120/72 01/29/21 08:00 98.1 71 17 120/72 (88) 96 01/29/21 08:00 2.0 01/29/21 08:00 Room Air 01/29/21 08:00 68 01/29/21 04:00 Room Air 01/29/21 04:00 88 01/29/21 04:00 98.0 63 18 129/78 (95) 95 01/29/21 04:00 1.0 01/29/21 00:00 98.2 56 18 120/77 (91) 95 01/29/21 00:00 84 01/29/21 00:00 Room Air 01/29/21 00:00 1.0 01/28/21 20:42 61 122/78 01/28/21 20:00 98.2 61 18 122/78 (93) 95 01/28/21 20:00 1.0 01/28/21 20:00 71 01/28/21 20:00 Room Air 01/28/21 19:36 94 Nasal Cannula 1.0 24 01/28/21 19:35 74 20 94 Nasal Cannula 1.0 24 01/28/21 16:12 73 01/28/21 16:00 Room Air 01/28/21 16:00 2.0 01/28/21 15:35 98.0 66 20 120/77 (91) 94 01/28/21 12:28 70 01/28/21 12:00 98.1 73 20 134/94 (107) 95 01/28/21 12:00 2.0 01/28/21 12:00 Nasal Cannula 2.0 Intake and Output 01/28/21 01/29/21 19:00 07:00 Output Total 800 ml Balance -800 ml Output Urine Total 800 ml # Voids 3 General Appearance: no acute distress HEENT: atraumatic Respiratory: decreased breath sounds Cardiovascular: normal rate, regular rhythm Abdomen: soft, non tender Musculoskeletal: other - LE edema Laboratory Tests 01/29/21 04:20: White Blood Count 7.5, Red Blood Count 4.11L, Hemoglobin 13.8, Hematocrit 44.1, Mean Corpuscular Volume 107H, Mean Corpuscular Hemoglobin 33.4H, Mean Corpuscular Hemoglobin Concent 31.2L, Red Cell Distribution Width 14.5, Platelet Count 322, Mean Platelet Volume 5.9L, Neutrophils (%) (Auto) 63.6, Lymphocytes (%) (Auto) 27.0, Monocytes (%) (Auto) 6.1, Eosinophils (%) (Auto) 2.2, Basophils (%) (Auto) 1.1, Sodium Level 139, Potassium Level 3.8, Chloride Level 99, Carbon Dioxide Level 38H, Anion Gap 2L, Blood Urea Nitrogen 22H, Creatinine 1.0, Estimat Glomerular Filtration Rate > 60, Glucose Level 97, Calcium Level 8.8, Phosphorus Level 3.2, Magnesium Level 2.4, Total Bilirubin 0.5, Aspartate Amino Transf (AST/SGOT) 23, Alanine Aminotransferase (ALT/SGPT) 147H, Alkaline Phosphatase 70, Total Protein 7.0, Albumin 3.8, Globulin 3.2, Albumin/Globulin Ratio 1.2 Current Medications Medications (Trade) Dose Ordered Sig/Della Route PRN Reason Start Time Stop Time Status Last Admin Dose Admin Acetaminophen (Tylenol) 500 mg Q6H PRN ORAL Mild Pain (Pain Scale 1-3) 01/18/21 22:30 02/17/21 22:29 01/23/21 21:12 Allopurinol (allopurinoL) 300 mg DAILY ORAL 01/20/21 11:45 02/19/21 11:44 01/29/21 08:48 Carvedilol (Coreg) 3.125 mg EVERY 12 HOURS ORAL 01/27/21 21:00 02/17/21 20:59 01/29/21 08:48 Clonidine HCl (Catapres Tab) 0.1 mg Q4H PRN ORAL sbp>170 01/18/21 16:15 04/18/21 16:14 Docusate Sodium (Colace) 100 mg THREE TIMES A DAY ORAL 01/19/21 13:00 02/18/21 12:59 01/29/21 08:48 Furosemide (Lasix) 40 mg DAILY ORAL 01/26/21 09:00 02/25/21 08:59 01/29/21 08:48 Levothyroxine Sodium (Synthroid) 50 mcg ACBREAKFAST ORAL 01/25/21 06:30 02/22/21 08:59 01/29/21 06:20 Pantoprazole (Protonix) 40 mg EVERY 12 HOURS ORAL 01/19/21 21:00 02/18/21 20:59 01/29/21 08:48 Prednisone (predniSONE) 20 mg DAILY ORAL 01/25/21 11:30 02/24/21 11:29 01/29/21 08:48 Sorbitol (sorbitoL) 45 ml BEDTIME ORAL 01/28/21 21:15 02/22/21 20:59 01/28/21 21:46 Sorbitol (sorbitoL) 60 ml DAILYPRN PRN ORAL constipation 01/24/21 20:45 02/23/21 20:44 Assessment/Plan Assessment/Plan 1. CHF exacerbation with elevated BNP -Cardio following -2D Echo: EF 60-65% - on Lasix, lisinopril, Coreg 2. undiagnosed COPD exacerbation -Patient reports extensive history of smoking, over 30 years -Patient education provided on smoking cessation -Patient denies use of home oxygen -continue breathing treatment prn - Continue supplemental oxygen -> now on 1-2L/min nasal O2 3. Respiratory distress, likely secondary to #1 and #2 -Continue steroids... Solu-Medrol 40 mg Q8hr -> will continue to taper; changed to PO 4. bilateral lower extremity edema -Negative for DVT on V/D US -SCD and ambulation for DVT prophylaxis -Continue Lasix 5. Hypothyroidism -On levothyroxine 6. Pulmonary congestion - back on Lasix - supplemental oxygen as needed 7. hypotension, likely secondary to diuresis - s/p NS bolus - back on Lasix 8. Nicotine dependence - Pt education on smoking cessation 9. Abd wall hernia - Seen by GI - Needs outpatient colonoscopy per GI Hospital bed and home oxygen now delivered. Awaiting picker and sorter load and unload by daughter today for discharge Medically stable for discharge from pulmonary standpoint Continue low flow oxygen and home and use inhalers prn. PO steroid for 5 days after discharge. The care of this patient was discussed with my supervising physician Time spent for this encounter was approximately 31 minutes Geoff Scott Jan 29, 2021 10:07
[2021-01-29 11:06] VITALS: BP 133/87
[2021-01-29] MEDS ORDERED: ALBUTEROL SULF8.5 G1 INH (11:40)
--- NOTE | 2021-01-29 12:16 | Nephrology Progress Note ---
Assessment/Plan Problem List: (1) ABIOLA (acute kidney injury) (2) CHF (congestive heart failure) (3) COPD (chronic obstructive pulmonary disease) (4) UTI (urinary tract infection) (5) Obesity (6) Hypothyroidism (7) HTN (hypertension) Assessment Renal failure: Rising serum creatinine multifactorial. Mainly treatment for CHF with lisinopril and Lasix Congestive heart failure History of hypertension History of COPD Obesity, BMI 42.3 Elevated TSH: Hypothyroidism Plan January 29: Labs reviewed. Renal parameters stable. Medication list reviewed. Continue per consultants. January 28: No labs drawn today. Renal parameters stable as of January 26. Medication list reviewed. Continue per current management. January 27: No labs drawn today. Renal parameters stable. Continue per consultants. January 26: Labs reviewed. Renal parameters stable. Clinically stable. Continue per consultants. January 25: No labs drawn today. Clinically stable. Labs ordered. Continue per consultants. January 24: No labs drawn today. Clinically stable. Will check lab tomorrow. Continue per consultants. Medication list reviewed. January 23: Labs reviewed. Renal parameters stable. Continue per consultants. January 22: No labs drawn today. Patient clinically stable. Medication list reviewed. Blood pressure stable. Will check lab tomorrow. January 21: Labs reviewed. Medication list reviewed. Renal parameters and electrolytes improved. Blood pressure stable. 24-hour urine for total protein pending. Heart rate stable. Remains on Synthroid intravenously January 20: Labs reviewed. Medication list reviewed. Serum creatinine 1.4 unchanged. Continue per consultants. Blood pressure dropped as a result Lasix on hold. Allopurinol added. Continue to monitor renal parameters.Discussed with Dr Garrido . Parameters for Coreg and Lisinopril, 24-hour urine collection for total protein ordered. Will change Synthroid to IV for the next few days. Continue to optimize pulmonary and cardiac status Monitor renal parameters electrolytes Start Synthroid Stool softener and gastric support Per orders Subjective ROS Limited/Unobtainable: No Constitutional: Reports: malaise, weakness Objective Objective Last 24 Hour Vital Signs Date Time Temp Pulse Resp B/P (MAP) Pulse Ox O2 Delivery O2 Flow Rate FiO2 01/29/21 12:00 71 01/29/21 11:08 2.0 01/29/21 11:07 Room Air 01/29/21 11:06 98.1 71 19 133/87 (102) 96 01/29/21 08:48 71 120/72 01/29/21 08:00 98.1 71 17 120/72 (88) 96 01/29/21 08:00 2.0 01/29/21 08:00 Room Air 01/29/21 08:00 68 01/29/21 07:00 96 Room Air 21 01/29/21 07:00 70 20 96 Room Air 21 01/29/21 04:00 Room Air 01/29/21 04:00 88 01/29/21 04:00 98.0 63 18 129/78 (95) 95 01/29/21 04:00 1.0 01/29/21 00:00 98.2 56 18 120/77 (91) 95 01/29/21 00:00 84 01/29/21 00:00 Room Air 01/29/21 00:00 1.0 01/28/21 20:42 61 122/78 01/28/21 20:00 98.2 61 18 122/78 (93) 95 01/28/21 20:00 1.0 01/28/21 20:00 71 01/28/21 20:00 Room Air 01/28/21 19:36 94 Nasal Cannula 1.0 24 01/28/21 19:35 74 20 94 Nasal Cannula 1.0 24 01/28/21 16:12 73 01/28/21 16:00 Room Air 01/28/21 16:00 2.0 01/28/21 15:35 98.0 66 20 120/77 (91) 94 01/28/21 12:28 70 Current Medications Medications (Trade) Dose Ordered Sig/Della Route PRN Reason Start Time Stop Time Status Last Admin Dose Admin Acetaminophen (Tylenol) 500 mg Q6H PRN ORAL Mild Pain (Pain Scale 1-3) 01/18/21 22:30 02/17/21 22:29 01/23/21 21:12 Albuterol Sulfate (Proventil MDI) 2 puff Q4H PRN INH Shortness of Breath 01/29/21 10:00 04/29/21 09:59 Allopurinol (allopurinoL) 300 mg DAILY ORAL 01/20/21 11:45 02/19/21 11:44 01/29/21 08:48 Carvedilol (Coreg) 3.125 mg EVERY 12 HOURS ORAL 01/27/21 21:00 02/17/21 20:59 01/29/21 08:48 Clonidine HCl (Catapres Tab) 0.1 mg Q4H PRN ORAL sbp>170 01/18/21 16:15 04/18/21 16:14 Docusate Sodium (Colace) 100 mg THREE TIMES A DAY ORAL 01/19/21 13:00 02/18/21 12:59 01/29/21 08:48 Furosemide (Lasix) 40 mg DAILY ORAL 01/26/21 09:00 02/25/21 08:59 01/29/21 08:48 Levothyroxine Sodium (Synthroid) 50 mcg ACBREAKFAST ORAL 01/25/21 06:30 02/22/21 08:59 01/29/21 06:20 Pantoprazole (Protonix) 40 mg EVERY 12 HOURS ORAL 01/19/21 21:00 02/18/21 20:59 01/29/21 08:48 Sorbitol (sorbitoL) 45 ml BEDTIME ORAL 01/28/21 21:15 02/22/21 20:59 01/28/21 21:46 Sorbitol (sorbitoL) 60 ml DAILYPRN PRN ORAL constipation 01/24/21 20:45 02/23/21 20:44 Sorbitol (sorbitoL) 60 ml ONCE ORAL 01/29/21 10:00 01/29/21 12:30 01/29/21 11:04 Intake and Output 01/28/21 01/29/21 19:00 07:00 Output Total 800 ml Balance -800 ml Output Urine Total 800 ml # Voids 3 Laboratory Tests 01/29/21 04:20: White Blood Count 7.5, Red Blood Count 4.11L, Hemoglobin 13.8, Hematocrit 44.1, Mean Corpuscular Volume 107H, Mean Corpuscular Hemoglobin 33.4H, Mean Corpuscular Hemoglobin Concent 31.2L, Red Cell Distribution Width 14.5, Platelet Count 322, Mean Platelet Volume 5.9L, Neutrophils (%) (Auto) 63.6, Lymphocytes (%) (Auto) 27.0, Monocytes (%) (Auto) 6.1, Eosinophils (%) (Auto) 2.2, Basophils (%) (Auto) 1.1, Sodium Level 139, Potassium Level 3.8, Chloride Level 99, Carbon Dioxide Level 38H, Anion Gap 2L, Blood Urea Nitrogen 22H, Creatinine 1.0, E stimat Glomerular Filtration Rate > 60, Glucose Level 97, Calcium Level 8.8, Phosphorus Level 3.2, Magnesium Level 2.4, Total Bilirubin 0.5, Aspartate Amino Transf (AST/SGOT) 23, Alanine Aminotransferase (ALT/SGPT) 147H, Alkaline Phosp hatase 70, Total Protein 7.0, Albumin 3.8, Globulin 3.2, Albumin/Globulin Ratio 1.2 Height (Feet): 5 Height (Inches): 10.00 Weight (Pounds): 295 General Appearance: no apparent distress Cardiovascular: normal rate Respiratory/Chest: decreased breath sounds Abdomen: distended Objective No change Adilson Yang MD Jan 29, 2021 12:16
--- NOTE | 2021-01-29 12:59 | Infectious Diseases Prog Note ---
Assessment/Plan Assessment/Plan IMPRESSION: 1. COPD with exacerbation. 2. Hypoxemia. 3. Diastolic CHF. 4. Acute renal failure. 5. Morbid obesity. 6. Hypothyroidism. 7. Nicotine dependence. 8. ? sleep apnea RECOMMENDATION: Observe off antibiotic Will be discharged with home O2 Subjective ROS Limited/Unobtainable: No Constitutional: Reports: no symptoms Respiratory: Reports: shortness of breath, other - mild Gastrointestinal/Abdominal: Reports: no symptoms Genitourinary: Reports: no symptoms Allergies: Coded Allergies: No Known Allergies (Verified Allergy, Mild, 03/23/10) Objective Last 24 Hour Vital Signs Date Time Temp Pulse Resp B/P (MAP) Pulse Ox O2 Delivery O2 Flow Rate FiO2 01/29/21 12:00 71 01/29/21 11:08 2.0 01/29/21 11:07 Room Air 01/29/21 11:06 98.1 71 19 133/87 (102) 96 01/29/21 08:48 71 120/72 01/29/21 08:00 98.1 71 17 120/72 (88) 96 01/29/21 08:00 2.0 01/29/21 08:00 Room Air 01/29/21 08:00 68 01/29/21 07:00 96 Room Air 01/29/21 07:00 70 20 96 Room Air 01/29/21 04:00 Room Air 01/29/21 04:00 88 01/29/21 04:00 98.0 63 18 129/78 (95) 95 01/29/21 04:00 1.0 01/29/21 00:00 98.2 56 18 120/77 (91) 95 01/29/21 00:00 84 01/29/21 00:00 Room Air 01/29/21 00:00 1.0 01/28/21 20:42 61 122/78 01/28/21 20:00 98.2 61 18 122/78 (93) 95 01/28/21 20:00 1.0 01/28/21 20:00 71 01/28/21 20:00 Room Air 01/28/21 19:36 94 Nasal Cannula 1.0 24 01/28/21 19:35 74 20 94 Nasal Cannula 1.0 24 01/28/21 16:12 73 01/28/21 16:00 Room Air 01/28/21 16:00 2.0 01/28/21 15:35 98.0 66 20 120/77 (91) 94 Height (Feet): 5 Height (Inches): 10.00 Weight (Pounds): 295 General Appearance: no acute distress HEENT: mucous membranes moist Respiratory/Chest: lungs clear Cardiovascular: normal rate Abdomen: soft, non tender Extremities: no edema Neurologic/Psychiatric: alert, responsive Laboratory Tests Test 01/29/21 04:20 White Blood Count 7.5 K/UL (4.8-10.8) Red Blood Count 4.11 M/UL (4.20-5.40) L Hemoglobin 13.8 G/DL (12.0-16.0) Hematocrit 44.1 % (37.0-47.0) Mean Corpuscular Volume 107 FL (80-99) H Mean Corpuscular Hemoglobin 33.4 PG (27.0-31.0) H Mean Corpuscular Hemoglobin Concent 31.2 G/DL (32.0-36.0) L Red Cell Distribution Width 14.5 % (11.6-14.8) Platelet Count 322 K/UL (150-450) Mean Platelet Volume 5.9 FL (6.5-10.1) L Neutrophils (%) (Auto) 63.6 % (45.0-75.0) Lymphocytes (%) (Auto) 27.0 % (20.0-45.0) Monocytes (%) (Auto) 6.1 % (1.0-10.0) Eosinophils (%) (Auto) 2.2 % (0.0-3.0) Basophils (%) (Auto) 1.1 % (0.0-2.0) Sodium Level 139 MMOL/L (136-145) Potassium Level 3.8 MMOL/L (3.5-5.1) Chloride Level 99 MMOL/L (98-107) Carbon Dioxide Level 38 MMOL/L (21-32) H Anion Gap 2 mmol/L (5-15) L Blood Urea Nitrogen 22 mg/dL (7-18) H Creatinine 1.0 MG/DL (0.55-1.30) Estimat Glomerular Filtration Rate > 60 mL/min (>60) Glucose Level 97 MG/DL (74-106) Calcium Level 8.8 MG/DL (8.5-10.1) Phosphorus Level 3.2 MG/DL (2.5-4.9) Magnesium Level 2.4 MG/DL (1.8-2.4) Total Bilirubin 0.5 MG/DL (0.2-1.0) Aspartate Amino Transf (AST/SGOT) 23 U/L (15-37) Alanine Aminotransferase (ALT/SGPT) 147 U/L (12-78) H Alkaline Phosphatase 70 U/L (46-116) Total Protein 7.0 G/DL (6.4-8.2) Albumin 3.8 G/DL (3.4-5.0) Globulin 3.2 g/dL Albumin/Globulin Ratio 1.2 (1.0-2.7) Current Medications Medications (Trade) Dose Ordered Sig/Della Route PRN Reason Start Time Stop Time Status Last Admin Dose Admin Acetaminophen (Tylenol) 500 mg Q6H PRN ORAL Mild Pain (Pain Scale 1-3) 01/18/21 22:30 02/17/21 22:29 01/23/21 21:12 Albuterol Sulfate (Proventil MDI) 2 puff Q4H PRN INH Shortness of Breath 01/29/21 10:00 04/29/21 09:59 Allopurinol (allopurinoL) 300 mg DAILY ORAL 01/20/21 11:45 02/19/21 11:44 01/29/21 08:48 Carvedilol (Coreg) 3.125 mg EVERY 12 HOURS ORAL 01/27/21 21:00 02/17/21 20:59 01/29/21 08:48 Clonidine HCl (Catapres Tab) 0.1 mg Q4H PRN ORAL sbp>170 01/18/21 16:15 04/18/21 16:14 Docusate Sodium (Colace) 100 mg THREE TIMES A DAY ORAL 01/19/21 13:00 02/18/21 12:59 01/29/21 12:23 Furosemide (Lasix) 40 mg DAILY ORAL 01/26/21 09:00 02/25/21 08:59 01/29/21 08:48 Levothyroxine Sodium (Synthroid) 50 mcg ACBREAKFAST ORAL 01/25/21 06:30 02/22/21 08:59 01/29/21 06:20 Pantoprazole (Protonix) 40 mg EVERY 12 HOURS ORAL 01/19/21 21:00 02/18/21 20:59 01/29/21 08:48 Sorbitol (sorbitoL) 45 ml BEDTIME ORAL 01/28/21 21:15 02/22/21 20:59 01/28/21 21:46 Sorbitol (sorbitoL) 60 ml DAILYPRN PRN ORAL constipation 01/24/21 20:45 02/23/21 20:44 Amilcar Rodriguez MD Jan 29, 2021 12:59
--- NOTE | 2021-01-29 14:00 | NUR ---
NURSE NOTES: recvd clearance from Dr Garrido.
--- NOTE | 2021-01-29 14:09 | NUR ---
INSURANCE CLINICALS FAXED TO [employer] [phone]
--- NOTE | 2021-01-29 16:48 | NUR ---
NURSE NOTES: Discharge instructions given. IV removed.
--- NOTE | 2021-01-29 19:52 | General Progress Note ---
Subjective Allergies: Coded Allergies: No Known Allergies (Verified Allergy, Mild, 03/23/10) Subjective No BM tolerating PO Objective Last 24 Hour Vital Signs Date Time Temp Pulse Resp B/P (MAP) Pulse Ox O2 Delivery O2 Flow Rate FiO2 01/29/21 12:00 71 01/29/21 11:08 2.0 01/29/21 11:07 Room Air 01/29/21 11:06 98.1 71 19 133/87 (102) 96 01/29/21 08:48 71 120/72 01/29/21 08:00 98.1 71 17 120/72 (88) 96 01/29/21 08:00 2.0 01/29/21 08:00 Room Air 01/29/21 08:00 68 01/29/21 07:00 96 Room Air 21 01/29/21 07:00 70 20 96 Room Air 21 01/29/21 04:00 Room Air 01/29/21 04:00 88 01/29/21 04:00 98.0 63 18 129/78 (95) 95 01/29/21 04:00 1.0 01/29/21 00:00 98.2 56 18 120/77 (91) 95 01/29/21 00:00 84 01/29/21 00:00 Room Air 01/29/21 00:00 1.0 01/28/21 20:42 61 122/78 01/28/21 20:00 98.2 61 18 122/78 (93) 95 01/28/21 20:00 1.0 01/28/21 20:00 71 01/28/21 20:00 Room Air Intake and Output 01/28/21 01/29/21 19:00 07:00 Output Total 800 ml Balance -800 ml Output Urine Total 800 ml # Voids 3 Laboratory Tests 01/29/21 04:20: White Blood Count 7.5, Red Blood Count 4.11L, Hemoglobin 13.8, Hematocrit 44.1, Mean Corpuscular Volume 107H, Mean Corpuscular Hemoglobin 33.4H, Mean Corpuscular Hemoglobin Concent 31.2L, Red Cell Distribution Width 14.5, Platelet Count 322, Mean Platelet Volume 5.9L, Neutrophils (%) (Auto) 63.6, Lymphocytes (%) (Auto) 27.0, Monocytes (%) (Auto) 6.1, Eosinophils (%) (Auto) 2.2, Basophils (%) (Auto) 1.1, Sodium Level 139, Potassium Level 3.8, Chloride Level 99, Carbon Dioxide Level 38H, Anion Gap 2L, Blood Urea Nitrogen 22H, Creatinine 1.0, Estimat Glomerular Filtration Rate > 60, Glucose Level 97, Calcium Level 8.8, Phosphorus Level 3.2, Magnesium Level 2.4, Total Bilirubin 0.5, Aspartate Amino Transf (AST/SGOT) 23, Alanine Aminotransferase (ALT/SGPT) 147H, Alkaline Phosphatase 70, Total Protein 7.0, Albumin 3.8, Globulin 3.2, Albumin/Globulin Ratio 1.2 Height (Feet): 5 Height (Inches): 10.00 Weight (Pounds): 295 Objective Obese NCAT Supple CTA RR Abd soft, (+) hernias no edema Assessment/Plan Status: progressing Assessment/Plan: Assessment - chronic constipation - HTN - Obesity - hypothyroid - hyperlipidemia - abd wall hernia Recommendations - Sorbitol nightly - double dose sorbitol today - po as tolerated - OOB - outpatient colonoscopy Odilon Quinonez MD Jan 29, 2021 19:52
--- NOTE | 2021-01-30 12:03 | Discharge Summary ---
Discharge Summary Discharge Summary _ Date of admission: 01/18/21 Date of discharge: 01/29/[address] Naylor History of Present Illness and Brief Hospital Course Ms. Curiel is a 55-year-old female with past medical history of hypothyroidism, hypertension and hyperlipidemia, who presented to the ED for evaluation of progressively worsening lower extremity swelling x1 week. She also reported respiratory distress and two-pillow orthopnea. Patient denied past medical history of COPD or CHF. Her initial blood gas was consistent with COPD exacerbation however. Patient received nebulizer treatment as well as IV Decadron in the ER. Patient was started on aspirin and Lasix for CHF. There was no DVT identified on ultrasound of legs. Chest x-ray was clear from infiltrates. Patient was admitted to the hospital for further management. The BNP was elevated. 2D echocardiogram revealed ejection fraction of 60-65%. Patient was started on Lasix, lisinopril, and Coreg. Patient reported extensive history of smoking, over 30 years. Patient was educated on smoking cessation. Patient was continued on breathing treatment. After multiple failed attempts at weaning her off of oxygen, it was determined that she would need to be placed on oxygen at home. Patient was also found to be constipated. Patient was started on laxatives. Patient was strongly advised to have a colonoscopy as an outpatient once she recovers from the acute illness. Throughout her hospitalization, patient was mainly treated for CHF and COPD exacerbation. Patient's leg edema improved throughout her hospitalization. Patient remained stable on low-flow oxygen. Patient was medically stable for discharge and was discharged home on 01/29/2021. Patient was also instructed to follow-up with her chart calculator and her primary care physician within 1 week upon discharge. Consultants: Cardiology Dr. Garrido Gastroenterology Dr. Quinonez Infectious disease Dr. Rodriguez Pulmonology Dr. Blanchard Nephrology Dr. Bowie Discharge Condition Improved and stable Discharge Activity As tolerated Discharge Diet Low-sodium Final diagnoses Bilateral lower extremity edema Hypertension COPD exacerbation Hypothyroidism Nicotine dependence Hypoxemic respiratory failure Diastolic CHF Acute renal failure Morbid obesity UTI Chronic constipation History of abdominal wall hernia I have been assigned to dictate discharge summary for this account. Geoff Scott Jan 30, 2021 12:03
== END 2021-01-29 16:37 | disposition home or self-care (01) | DRG 194 ==
LOC: EMR 13:10 → EDBEDREQSVC 14:05 → 2W 14:50 → EDBEDREQ 17:56
DX: I13.0 Hypertensive heart and chronic kidney disease with heart failure and stage 1 through stage 4 chronic kidney disease, or unspecified chronic kidney disease (principal); N17.9 Acute kidney failure, unspecified; J44.1 Chronic obstructive pulmonary disease with (acute) exacerbation; E66.01 Morbid (severe) obesity due to excess calories; Z68.41 Body mass index [BMI] 40.0-44.9, adult; N18.9 Chronic kidney disease, unspecified; E03.9 Hypothyroidism, unspecified; I50.33 Acute on chronic diastolic (congestive) heart failure; F17.200 Nicotine dependence, unspecified, uncomplicated; E78.5 Hyperlipidemia, unspecified; I95.9 Hypotension, unspecified; R00.1 Bradycardia, unspecified; K59.09 Other constipation; K43.9 Ventral hernia without obstruction or gangrene; J96.91 Respiratory failure, unspecified with hypoxia; N39.0 Urinary tract infection, site not specified
CPT/HCPCS: 36415; 71045; 80053; 80061; 81003; 81050; 82306; 82607; 82728; 82746; 82803; 82977; 83036; 83540; 83550; 83605; 83735; 83880; 84100; 84156; 84439; 84443; 84481; 84484; 84550; 85025; 85379; 85610; 85730; 86140; 87040; 93306; 93970; 94640; 96365; 96375; 99285; J7620